=== PATIENT | female | born 1955 | race Caucasian/White ===

== ENCOUNTER 2020-01-08 09:01 | Outpatient (REF) | payer MEDICARE, MEDICAID, SELFPAY ==
--- NOTE | 2020-01-08 09:34 | XR_ITS ---
EXAMINATION: XR HAND, RIGHT CLINICAL INFORMATION: Pain 1st finger. COMPARISON: None TECHNIQUE: PA, lateral, and oblique views of the right hand. FINDINGS: There is no evidence of acute fracture or dislocation of the right hand. There are noted to be changes of osteoarthritis involving the interphalangeal joints more prominent involving the distal interphalangeal joints with joint space narrowing and spurring and subchondral cyst formation. No erosive changes are appreciated. There is degenerative change of the 1st carpometacarpal joint with joint space narrowing, spurring, and sclerosis. There is some narrowing of the triscaphe joint. Subchondral cysts are seen involving the distal radius and ulna. 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 No evidence of acute fracture or dislocation. No findings to suggest erosive arthritides.
== END 2020-01-08 09:02 | disposition home or self-care (01) ==
LOC: HO.XRAY 09:01
PROVIDERS: Absent Provider Internal Medicine; PCP Internal Medicine; Visit Provider Internal Medicine Pulmonary Disease
DX: M79.646 Pain in unspecified finger(s) (principal); J44.9 Chronic obstructive pulmonary disease, unspecified; Z91.09 Other allergy status, other than to drugs and biological substances; J45.40 Moderate persistent asthma, uncomplicated
CPT/HCPCS: 73120; 99212

== ENCOUNTER → 2020-01-19 12:23 | Outpatient (BNVA) | payer MEDICARE, MEDICAID, SELFPAY | PROVIDERS: Visit Provider Orthopaedic Surgery | DX: M65.311 Trigger thumb, right thumb (principal) | CPT/HCPCS: 99202 ==

== ENCOUNTER 2020-02-19 08:22 | Day surgery (SDC) | payer MEDICARE, MEDICAID, SELFPAY ==
[2020-02-13 14:06] VITALS: BMI 21.2
[2020-02-19 08:53] VITALS: BP 114/67; PULSE 65; RESP 18; TEMP 36.7; O2SAT 98
--- NOTE | 2020-02-19 09:28 | PC.NURSE ---
PATIENT BEING DONE WITH LOCAL. NO IV REQUIRED.
--- NOTE | 2020-02-19 09:53 | MHC.SHP ---
Pre-Procedural Eval Section B Chief Complaint: right trigger thumb Allergies: Allergies Allergy/AdvReac Type Severity Reaction Status Date / Time tetracycline Allergy Intermediate vomiting Verified 02/13/20 14:08 penicillin V Allergy Unknown Unknown Verified 01/08/20 09:03 Plan I have reviewed the history and physical and performed a pertinent physical examination on my patient. No changes have occurred unless specified.
[2020-02-19 10:24] VITALS: BP 118/77; PULSE 68; RESP 18; TEMP 36.5; O2SAT 97
--- NOTE | 2020-02-19 10:33 | W.PM.OPN ---
Operative Note Operative Note Date of Service: 02/19/20 Narrative: Operative Note Preop diagnosis: 1. Right thumb Trigger finger Postop diagnosis: 1. Right thumb Trigger finger Procedure: 1. Right thumb A1 lisa release Surgeon: Anastasiia Weeks MD Anesthesia: local block using 1% lidocaine with epinephrine Findings: No locking or catching after A1 lisa release EBL: Less than 5 mL Tourniquet time: None Specimens: None Complications: None Disposition: Brought to recovery room in stable condition Plan: Follow-up for 7-10 days for wound check and suture removal Indications: The patient is 64 years old, with a right thumb trigger finger that has been unresponsive to nonoperative management. The risks and benefits of operative treatment including but not limited to risk of damage to blood vessels, nerves, tendons, infection, persistent pain, persistent symptoms, recurrence or possible need for additional surgery were discussed with the patient and the patient wishes to proceed with surgery. Procedure: Once consent was obtained a local block was performed in the preop area using a combination of 1% lidocaine with epinephrine. The patient was then brought back to the operating suite and placed on the operative table in supine position. A tourniquet was applied to the proximal aspect of the right upper extremity and the limb was prepped and draped in a standard surgical fashion. Once assured that we had a good block, a 1.5 cm oblique incision was made centered over the A1 lisa of the right thumb . The incision was made through the skin to the subcutaneous tissues using a #15 blade. Careful dissection was made down to the level of the A1 lisa using tenotomy scissors, with care being taken to protect the nearby neurovascular structures. A longitudinal incision was made in the A1 lisa 1st using a #15 blade, then using tenotomy scissors under direct visualization. The A1 lisa was noted to be thickened. Following our A1 lisa release, we no longer saw any locking or catching of the digit with flexion and extension. Once satisfied with our A1 lisa release the wound was copiously irrigated with normal saline and hemostasis was obtained with a brief period of local pressure. The skin edges were reapproximated with some 5.0 nylon suture material and a sterile dressing was applied. The patient appears to have tolerated the procedure well and with no complications. All digits were well vascularized at the conclusion of the case.
== END 2020-02-19 23:59 | disposition home or self-care (01) ==
PROVIDERS: PCP Internal Medicine; Visit Provider Orthopaedic Surgery
PROC: (CPT 26055; principal; 2020-02-19 09:10)
DX: M65.311 Trigger thumb, right thumb (principal); G40.909 Epilepsy, unspecified, not intractable, without status epilepticus; J45.909 Unspecified asthma, uncomplicated; Z88.0 Allergy status to penicillin; F17.210 Nicotine dependence, cigarettes, uncomplicated
CPT/HCPCS: 26055

== ENCOUNTER → 2020-03-01 09:03 | Outpatient (BNVA) | payer MEDICARE, MEDICAID, SELFPAY | PROVIDERS: PCP Internal Medicine; Visit Provider Orthopaedic Surgery | DX: M65.311 Trigger thumb, right thumb (principal); M65.312 Trigger thumb, left thumb | CPT/HCPCS: 99212 ==

== ENCOUNTER → 2020-04-12 13:47 | Outpatient (BNVA) | payer MEDICARE, MEDICAID, SELFPAY | PROVIDERS: Visit Provider Orthopaedic Surgery | DX: M65.312 Trigger thumb, left thumb (principal); M65.311 Trigger thumb, right thumb | CPT/HCPCS: 99212 ==

== ENCOUNTER 2020-05-13 12:02 | Day surgery (SDC) | payer MEDICARE, MEDICAID, SELFPAY ==
[2020-05-13 12:12] VITALS: BP 123/71; PULSE 60; RESP 18; TEMP 36.6; O2SAT 98; BMI 21.2
[2020-05-13 14:06] VITALS: BP 118/66; PULSE 54; RESP 17; TEMP 36.4; O2SAT 98
--- NOTE | 2020-05-13 14:06 | MHC.SHP ---
Pre-Procedural Eval Section B Chief Complaint: trigger thumb Allergies: Allergies Allergy/AdvReac Type Severity Reaction Status Date / Time tetracycline Allergy Intermediate vomiting Verified 04/12/20 14:31 penicillin V Allergy Unknown Unknown Verified 04/12/20 14:31 Plan I have reviewed the history and physical and performed a pertinent physical examination on my patient. No changes have occurred unless specified.
--- NOTE | 2020-05-13 14:06 | W.PM.OPN ---
Operative Note Operative Note Date of Service: 05/13/20 Narrative: Operative Note Preop diagnosis: 1. Left thumb Trigger finger Postop diagnosis: 1. Left thumb Trigger finger Procedure: 1. Left thumb A1 lisa release Surgeon: Anastasiia Weeks MD Anesthesia: local block using 1% lidocaine with epinephrine Findings: No locking or catching after A1 lisa release EBL: Less than 5 mL Tourniquet time: None Specimens: None Complications: None Disposition: Brought to recovery room in stable condition Plan: Follow-up for 7-10 days for wound check and suture removal Indications: The patient is 64 years old, with a left thumb trigger finger that has been unresponsive to nonoperative management. The risks and benefits of operative treatment including but not limited to risk of damage to blood vessels, nerves, tendons, infection, persistent pain, persistent symptoms, recurrence or possible need for additional surgery were discussed with the patient and the patient wishes to proceed with surgery. Procedure: Once consent was obtained a local block was performed in the preop area using a combination of 1% lidocaine with epinephrine. The patient was then brought back to the operating suite and placed on the operative table in supine position. A tourniquet was applied to the proximal aspect of the left upper extremity and the limb was prepped and draped in a standard surgical fashion. Once assured that we had a good block, a 1.5 cm oblique incision was made centered over the A1 lisa of the left thumb . The incision was made through the skin to the subcutaneous tissues using a #15 blade. Careful dissection was made down to the level of the A1 lisa using tenotomy scissors, with care being taken to protect the nearby neurovascular structures. A longitudinal incision was made in the A1 lisa 1st using a #15 blade, then using tenotomy scissors under direct visualization. The A1 lisa was noted to be thickened. Following our A1 lisa release, we no longer saw any locking or catching of the digit with flexion and extension. Once satisfied with our A1 lisa release the wound was copiously irrigated with normal saline and hemostasis was obtained with a brief period of local pressure. The skin edges were reapproximated with some 5.0 nylon suture material and a sterile dressing was applied. The patient appears to have tolerated the procedure well and with no complications. All digits were well vascularized at the conclusion of the case.
== END 2020-05-13 14:21 | disposition home or self-care (01) ==
PROVIDERS: PCP Internal Medicine; Visit Provider Orthopaedic Surgery
PROC: (CPT 26055; principal; 2020-05-13 13:00)
DX: M65.312 Trigger thumb, left thumb (principal); J45.909 Unspecified asthma, uncomplicated; G40.909 Epilepsy, unspecified, not intractable, without status epilepticus; Z88.0 Allergy status to penicillin; Z88.8 Allergy status to other drugs, medicaments and biological substances
CPT/HCPCS: 26055

== ENCOUNTER → 2020-05-19 13:51 | Outpatient (BNVA) | payer MEDICARE, MEDICAID, SELFPAY | PROVIDERS: PCP Internal Medicine; Visit Provider Orthopaedic Surgery | DX: Z48.89 Encounter for other specified surgical aftercare (principal); Z87.39 Personal history of other diseases of the musculoskeletal system and connective tissue | CPT/HCPCS: 99212 ==

== ENCOUNTER → 2020-07-16 10:47 | Outpatient (BNVA) | payer MEDICARE, MEDICAID, SELFPAY | PROVIDERS: PCP Internal Medicine; Visit Provider Internal Medicine Pulmonary Disease | DX: J45.40 Moderate persistent asthma, uncomplicated (principal); Z91.09 Other allergy status, other than to drugs and biological substances; Z79.899 Other long term (current) drug therapy | CPT/HCPCS: 99212 ==

== ENCOUNTER 2020-08-06 10:30 | Outpatient (REF) | payer MEDICARE, MEDICAID, SELFPAY ==
[2020-08-06 11:53] LABS: Blood Urea Nitrogen 13 mg/dL (9-16); Estimated Glomerular Filt Rate > 60
== END 2020-08-06 10:31 | disposition home or self-care (01) ==
LOC: HO.LAB 10:30
PROVIDERS: PCP Internal Medicine; Visit Provider Psychiatry & Neurology Neurology
DX: G40.209 Localization-related (focal) (partial) symptomatic epilepsy and epileptic syndromes with complex partial seizures, not intractable, without status epilepticus (principal)
CPT/HCPCS: 36415; 82565; 84520

== ENCOUNTER 2020-08-13 13:25 | Outpatient (REF) | payer MEDICARE, MEDICAID, SELFPAY ==
--- NOTE | ~2020-08-13 | MR_ITS ---
EXAMINATION: MR BRAIN WITHOUT AND WITH CONTRAST CLINICAL INFORMATION: Temporal lobe epilepsy. COMPARISON: None. TECHNIQUE: Multiplanar, multisequence imaging of the brain was acquired on a 3 Deja magnet before and after the intravenous administration of 5.5 mL of Gadavist. FINDINGS: No diffusion abnormalities are identified to suggest an acute infarct. The ventricles are normal in size. No mass effect or midline shift is seen. Nonspecific very mild scattered white matter signal changes noted. No extra-axial fluid collections are seen. The brainstem and cerebellum are normal. There is no abnormal parenchymal or leptomeningeal enhancement. No focal cortical dysplasia or migrational abnormality is seen. The hippocampi are normal in appearance. The gradient refocused acquisition demonstrates no pathologic magnetic susceptibility artifact to indicate underlying acute or chronic blood products. The craniovertebral junction, marrow signal, and midline structures are normal. The orbits and pituitary axis appear normal. The major intracranial flow voids at the level of the saxman of [place] are preserved. The dural venous sinus flow voids are maintained. The mastoid air cells and paranasal sinuses are well aerated. There is moderate right-sided hypertrophic facet arthropathy with sclerotic change at the C3-C4 and C4-C5 levels. Mild anterolisthesis visible at C4-C5. There is a retrosubluxation and severe disc space narrowing with endplate spurring at the C5-C6 level. MR/MR head/brain wo/w con IMPRESSION: No hippocampal pathology or epileptogenic focus identified. Nonspecific mild white matter signal changes. No abnormal enhancement. Partially visualized moderate cervical spondylosis and facet arthropathy.
== END 2020-08-13 13:26 | disposition home or self-care (01) ==
LOC: HO.MRI 13:25
PROVIDERS: PCP Internal Medicine; Visit Provider Psychiatry & Neurology Neurology
DX: G40.209 Localization-related (focal) (partial) symptomatic epilepsy and epileptic syndromes with complex partial seizures, not intractable, without status epilepticus (principal)
CPT/HCPCS: 70553

== ENCOUNTER 2020-11-05 10:23 | Outpatient (REF) | payer MEDICARE, MEDICAID, SELFPAY ==
[2020-11-05 11:38] LABS: Thyroid Stimulating Hormone 0.43 uIU/mL (0.32-4.0)
== END 2020-11-05 10:24 | disposition home or self-care (01) ==
LOC: HO.LAB 10:23
PROVIDERS: PCP Internal Medicine; Visit Provider Internal Medicine
DX: E03.9 Hypothyroidism, unspecified (principal)
CPT/HCPCS: 36415; 84443

== ENCOUNTER → 2021-02-18 10:05 | Outpatient (BNVA) | payer MEDICARE, MEDICAID, SELFPAY | PROVIDERS: PCP Internal Medicine; Visit Provider Internal Medicine Pulmonary Disease | DX: J45.40 Moderate persistent asthma, uncomplicated (principal); Z91.09 Other allergy status, other than to drugs and biological substances | CPT/HCPCS: 99212 ==

== ENCOUNTER → 2021-06-20 09:56 | Outpatient (BNVA) | payer MEDICARE, MEDICAID, SELFPAY | PROVIDERS: PCP Internal Medicine; Visit Provider Internal Medicine Pulmonary Disease | DX: J45.40 Moderate persistent asthma, uncomplicated (principal); Z91.09 Other allergy status, other than to drugs and biological substances | CPT/HCPCS: 99212 ==

== ENCOUNTER 2021-11-30 13:31 | Outpatient (REF) | payer MEDICARE, MEDICAID, SELFPAY ==
[2021-11-30 13:42] LABS: MANUAL DIFF FLAG NO
[2021-11-30 13:53] LABS: Basophils Absolute Auto 0.1 X10*3/uL (0.0-0.2); Basophils Percent Auto 0.7 % (0-2); Eosinophils Absolute Auto 0.6 X10*3/uL (0.0-0.4); Eosinophils Percent Auto 6.6 % (0-4); Hematocrit 39.5 % (37.0-47.0); Hemoglobin 13.9 g/dl (12.0-16.0); Imm Gran Abs Auto 0.02 X10*3/uL (0.00-0.03); Imm Gran Pct Auto 0.2 % (0.0-0.4); Lymphocytes Absolute Auto 2.8 X10*3/uL (1.2-4.9); Lymphocytes Percent Auto 34.3 % (20-40); Mean Corpuscular HGB Conc 35.2 g/dl (31.0-35.0); Mean Corpuscular Hemoglobin 33.1 pg (27.0-33.0); Mean Platelet Volume 9.2 fL (9.4-12.3); Monocytes Absolute Auto 0.7 X10*3/uL (0.1-1.2); Neutrophils Absolute Auto 4.2 x10*3/uL (2.0-8.3); Neutrophils Percent Auto 50.2 % (45-73); Platelet Count 275 X10*3/uL (160-400); Red Cell Distribution Width 13.7 % (11.0-16.0); White Blood Count 8.3 X10*3/uL (4.8-10.8)
[2021-11-30 14:32] LABS: Anion Gap 15 (12-20); Blood Urea Nitrogen 15 mg/dL (9-16); Calcium 9.5 mg/dL (8.4-10.2); Carbon Dioxide 27 mmol/L (22-29); Chloride 103 mmol/L (96-108); Estimated Glomerular Filt Rate > 60; Glucose Random 88 mg/dL (60-115); Potassium 4.2 mmol/L (3.3-5.1); Sodium 141 mmol/L (135-145)
[2021-11-30 14:43] LABS: Thyroid Stimulating Hormone 0.89 uIU/mL (0.32-4.0)
== END 2021-11-30 13:32 | disposition home or self-care (01) ==
LOC: HO.LAB 13:31
PROVIDERS: PCP Internal Medicine; Visit Provider Internal Medicine
DX: Z13.0 Encounter for screening for diseases of the blood and blood-forming organs and certain disorders involving the immune mechanism (principal); E03.9 Hypothyroidism, unspecified; R51.9 Headache, unspecified
CPT/HCPCS: 36415; 80048; 84443; 85025

== ENCOUNTER → 2021-12-02 13:28 | Outpatient (BNVA) | payer MEDICARE, MEDICAID, SELFPAY | PROVIDERS: PCP Internal Medicine; Visit Provider Internal Medicine Pulmonary Disease | DX: J45.40 Moderate persistent asthma, uncomplicated (principal); Z91.09 Other allergy status, other than to drugs and biological substances | CPT/HCPCS: 99212 ==

== ENCOUNTER → 2022-06-16 09:46 | Outpatient (BNVA) | payer MEDICARE, MEDICAID, SELFPAY | PROVIDERS: PCP Internal Medicine; Visit Provider Internal Medicine Pulmonary Disease | DX: J45.40 Moderate persistent asthma, uncomplicated (principal); Z91.09 Other allergy status, other than to drugs and biological substances | CPT/HCPCS: 99212 ==

== ENCOUNTER 2023-03-09 10:05 | Outpatient (AMB) | payer MEDICARE, MEDICAID, SELFPAY ==
[2023-03-09 10:20] VITALS: BP 104/70; PULSE 66; O2SAT 96; BMI 28.1
--- NOTE | 2023-03-09 10:20 | A.OFFVIS_ITS ---
Intake Vital Signs 03/09/23 10:20 Height 5 ft Weight 144 lb BMI 28.1 BP 104/70 Blood Pressure Location Lt brachial Position Sitting Pulse 66 Pulse Source Pulse Oximeter Pulse Oximetry (%) 96 Oxygen Delivery Method Room Air Intake Visit Reasons: Asthma Intake Note: pt is here for follow up and states she is feeling good today. 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 Her symptoms continue to be controlled Symbicort 160, Singulair, and albuterol MDI.? She denies any recent exacerbations. COUNTS INCLUDE 234 BEDS AT THE [facility] Medical History (Updated 11/30/21 @ 13:32 by Black Quevedo MD) Hypothyroidism Epilepsy Asthma Graves disease Surgical History History of thumb surgery History of renal stent (~2002) History of arthroscopy of left knee History of tubal ligation Family History Father No problems noted. Mother No problems noted. 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 Review of Systems Const Denies daytime sleepiness, Denies excessive sweating, Denies fatigue, Denies fever(s), Denies lethargy, Denies malaise, Denies night sweats, Denies snoring and Denies weight loss Eyes Denies blurry vision and Denies itchy eyes ENT Denies nasal congestion, Denies post nasal drip, Denies sinus pain, Denies sinus pressure and Denies other ( Thrush) Card Denies chest pain, Denies pedal edema, Denies dyspnea, Denies orthopnea and Denies paroxysmal nocturnal dyspnea Resp Denies cough, Denies hemoptysis, Denies excessive phlegm production, Denies dyspnea, Denies snoring and Denies wheezing GI Denies abdominal pain and Denies heartburn Musc Denies myalgias, Denies arthralgias and Denies joint swelling Skin/Breast Denies rash Neuro Denies memory loss and Denies seizure-like activity Psych Denies abnormal sleep pattern, Denies anxiety and Denies memory loss Endo Denies excessive sweating, Denies fatigue and Denies heat intolerance Mandeep/Lymph Denies easy bruising Aller/Immun Denies itchy eyes, Denies seasonal rhinorrhea and Denies wheezing Physical Exam Vital Signs: Last Vital Signs Pulse 66 03/09/23 10:20 BP 104/70 03/09/23 10:20 Pulse Ox 96 03/09/23 10:20 Oxygen Delivery Method Room Air 03/09/23 10:20 BMI result Body Mass Index 28.1 Const General: no acute distress and alert Nutritional Appearance: not obese Orientation/consciousness: Other orientation findings ( oriented) HEENT Head: Yes atraumatic Eyes General: appearance normal, both eyes and all related structures Sclerae: sclerae normal EOM: EOMs intact bilaterally Neck Neck: Yes supple Lymphatic: no lymphadenopathy noted Resp Effort & Inspection: normal respiratory effort and no use of accessory muscles Auscultation: clear to auscultation bilaterally Cardio Rate: regular rate Rhythm: regular rhythm Heart sounds: no gallops, no murmurs and no rubs Skin General skin exam: other ( warm) Extrem General: No clubbing, No cyanosis and No edema Assessment & Plan Assessment & Plan (1) Moderate persistent asthma: Code(s): J45.40 - Moderate persistent asthma, uncomplicated Plan: Well controlled on Symbicort and albuterol MDI. Continue current regimen. (2) Environmental allergies: Code(s): Z91.09 - Other allergy status, other than to drugs and biological substances Plan: Well controlled on Singulair. Continue current regimen. Coding Level of Care Code Est Pt Level 4 (41114) Diagnoses Moderate persistent asthma J45.40 Environmental allergies Z91.09
== END 2023-03-09 10:29 | disposition home or self-care (01) ==
PROVIDERS: PCP Internal Medicine; Visit Provider Internal Medicine Pulmonary Disease
DX: J45.40 Moderate persistent asthma, uncomplicated (principal); Z91.09 Other allergy status, other than to drugs and biological substances
CPT/HCPCS: 99214

== ENCOUNTER → 2023-03-09 10:05 | Outpatient (BNVA) | payer MEDICARE, MEDICAID, SELFPAY | PROVIDERS: PCP Internal Medicine; Visit Provider Internal Medicine Pulmonary Disease | DX: J45.40 Moderate persistent asthma, uncomplicated (principal); Z91.09 Other allergy status, other than to drugs and biological substances | CPT/HCPCS: 99212 ==

== ENCOUNTER 2023-10-05 11:35 | Outpatient (AMB) | payer MEDICARE, MEDICAID, SELFPAY ==
[2023-10-05 11:47] VITALS: BP 108/62; PULSE 66; O2SAT 97; BMI 26.6
--- NOTE | 2023-10-05 11:47 | MHC.OFFVIS ---
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 Her symptoms continue to be controlled Symbicort 160, Singulair, and albuterol MDI.? She denies any recent exacerbations. [facility] Medical History (Updated 11/30/21 @ 13:32 by Black Quevedo MD) Hypothyroidism Epilepsy Asthma Graves disease Surgical History History of thumb surgery History of renal stent (~2002) History of arthroscopy of left knee History of tubal ligation Family History Father No problems noted. Mother No problems noted. 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 Review of Systems Const Denies daytime sleepiness, Denies excessive sweating, Denies fatigue, Denies fever(s), Denies lethargy, Denies malaise, Denies night sweats, Denies snoring and Denies weight loss Eyes Denies blurry vision and Denies itchy eyes ENT Denies nasal congestion, Denies post nasal drip, Denies sinus pain, Denies sinus pressure and Denies other ( Thrush) Card Denies chest pain, Denies pedal edema, Denies dyspnea, Denies orthopnea and Denies paroxysmal nocturnal dyspnea Resp Denies cough, Denies hemoptysis, Denies excessive phlegm production, Denies dyspnea, Denies snoring and Denies wheezing GI Denies abdominal pain and Denies heartburn Musc Denies myalgias, Denies arthralgias and Denies joint swelling Skin/Breast Denies rash Neuro Denies memory loss and Denies seizure-like activity Psych Denies abnormal sleep pattern, Denies anxiety and Denies memory loss Endo Denies excessive sweating, Denies fatigue and Denies heat intolerance Mandeep/Lymph Denies easy bruising Aller/Immun Denies itchy eyes, Denies seasonal rhinorrhea and Denies wheezing Physical Exam Vital Signs: Last Vital Signs Pulse 66 10/05/23 11:47 BP 108/62 10/05/23 11:47 Pulse Ox 97 10/05/23 11:47 Oxygen Delivery Method Room Air 10/05/23 11:47 BMI result Body Mass Index 26.6 Const General: no acute distress and alert Nutritional Appearance: not obese Orientation/consciousness: Other orientation findings ( oriented) HEENT Head: Yes atraumatic Eyes General: appearance normal, both eyes and all related structures Sclerae: sclerae normal EOM: EOMs intact bilaterally Neck Neck: Yes supple Lymphatic: no lymphadenopathy noted Resp Effort & Inspection: normal respiratory effort and no use of accessory muscles Auscultation: clear to auscultation bilaterally Cardio Rate: regular rate Rhythm: regular rhythm Heart sounds: no gallops, no murmurs and no rubs Skin General skin exam: other ( warm) Extrem General: No clubbing, No cyanosis and No edema Assessment & Plan Assessment & Plan (1) Moderate persistent asthma: Code(s): J45.40 - Moderate persistent asthma, uncomplicated Category: Medical Plan: Well controlled on Symbicort and albuterol MDI. Continue current regimen. (2) Environmental allergies: Code(s): Z91.09 - Other allergy status, other than to drugs and biological substances Category: Medical Plan: Well controlled on Singulair. Continue current regimen. Coding Level of Care Code Est Pt Level 4 (17520) Diagnoses Moderate persistent asthma J45.40 Environmental allergies Z91.09
== END 2023-10-05 12:01 | disposition home or self-care (01) ==
PROVIDERS: PCP Internal Medicine; Visit Provider Internal Medicine Pulmonary Disease
DX: J45.40 Moderate persistent asthma, uncomplicated (principal); Z91.09 Other allergy status, other than to drugs and biological substances
CPT/HCPCS: 99214

== ENCOUNTER → 2023-10-05 11:35 | Outpatient (BNVA) | payer MEDICARE, MEDICAID, SELFPAY | PROVIDERS: PCP Internal Medicine; Visit Provider Internal Medicine Pulmonary Disease | DX: J45.40 Moderate persistent asthma, uncomplicated (principal); Z91.09 Other allergy status, other than to drugs and biological substances | CPT/HCPCS: 99212 ==

== ENCOUNTER 2024-01-21 10:16 | Outpatient (AMB) | payer MEDICARE, MEDICAID, SELFPAY ==
--- NOTE | 2024-01-21 10:17 | A.OFFPC_ITS ---
Vital Signs 01/21/24 10:18 Height 5 ft Weight 143 lb BMI 27.9 BP 116/70 Blood Pressure Location Lt brachial Position Sitting Pulse 78 Pulse Source Pulse Oximeter Pulse Oximetry (%) 97 Oxygen Delivery Method Room Air Intake Visit Reasons: Thyroid medication f/u Senior Java Architect Required: No Accompanied by: Self / Same As Patient Allergies tetracycline Allergy (Intermediate, Verified 01/21/24 10:22) vomiting penicillin V Allergy (Unknown, Verified 01/21/24 10:22) Unknown Medication List - Last Reconciled 01/22/24 by Black Quevedo MD levetiracetam 3,500 mg PO DAILY montelukast 10 mg PO DAILY oxcarbazepine 300 mg PO BID Symbicort 160-4.5 mcg/actuation (budesonide-formoterol) 2 puffs PO BID NS Synthroid (levothyroxine) 125 mcg PO DAILY NS Ventolin HFA 90 mcg/actuation (albuterol sulfate) 2 puffs inhalation Q4H PRN NS Tobacco use date assessed: 01/21/24 Fall risk assessment: 1 Fall in past year Last assessed Fall Risk: 01/21/24 Dental Screening Dental Screen Date: 01/21/24 Did you have a dental visit in the last 12 months?: Yes Did you have a dental problem in the last 6 months where you did not have access to dental care?: No Was dental information given to patient?: Patient has dentist HPI Thyroid medication f/u HPI Details hypothyroidism on rx; due for labs; compliant with rx [facility] Medical History (Updated 11/30/21 @ 13:32 by Black Quevedo MD) Hypothyroidism Epilepsy Asthma Graves disease Surgical History History of thumb surgery History of renal stent (~2002) History of arthroscopy of left knee History of tubal ligation Family History Father No problems noted. Mother No problems noted. 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 1. Little interest or pleasure in doing things: not at all 2. Feeling down, depressed, or hopeless: not at all 3. Trouble falling or staying asleep, or sleeping too much: not at all 4. Feeling tired or having little energy: not at all 5. Poor appetite or overeating: not at all 6. Feeling bad about yourself - or that you are a failure or have let yourself or your family down: not at all 7. Trouble concentrating on things, such as reading the newspaper or watching television: not at all 8. Moving or speaking so slowly that other people could have noticed. Or the opposite - being so fidgety or restless that you have been moving around a lot more than usual: not at all 9. Thoughts that you would be better off or of hurting yourself in some way: not at all Total score: 0 Depression Screening Interpretation: Negative Depression Screening Done: Yes Source: Developed by Drs. Vivek West, Keeley Cantor, Nithin Amaya and colleagues, with an educational ketty from [employer]. Thrive Questionnaire Date Thrive assessed: 01/21/24 I am a: Patient What is your living situation today?: I have a steady place to live Within the past 12 months, did the food you bought not last and you didn't have the money to get more?: Never true Within the past 12 months, did you worry whether your food would run out before you got money to buy more?: Never true Do you have trouble paying for medicines?: No Do you have trouble getting transportation to medical appointments?: No Do you have trouble paying your heating and electricity bill?: No Do you have trouble taking care of your child, family member or friend?: No Do you have trouble with day-to-day activities such as bathing, preparing meals, shopping, managing finances, etc.?: No Are you currently unemployed and looking for a job?: No Are you interested in more education?: No Please select the resources that you would like help with: None Currently or been in a relationship where the following occur: No concerns reported THRIVE Score: 0 AUDIT C Alcohol Use Questionnaire (AUDIT-C) 1. How often do you have a drink containing alcohol?: Never Total Score: 0 KRYSTINA-7 AMB Questionnaire KRYSTINA-7 Date KRYSTINA - 7 assessed: 01/21/24 Feeling nervous, anxious, or on edge: 0 = Not at all Not being able to stop or control worryin = Not at all Worrying too much about different things: 0 = Not at all Trouble relaxin = Not at all Being so restless that it is hard to sit still: 0 = Not at all Becoming easily annoyed or irritable: 0 = Not at all Feeling afraid as if something awful might happen: 0 = Not at all Total KRYSTINA-7 score (0-4 normal; 5-9 mild; 10-14 moderate; 15-21 severe): 0 Source: Developed by Drs. Vivek West, Keeley Cantor, Nithin Amaya and colleagues, with an educational ketty from [employer]. Review of Systems Const Denies chills, Denies headache(s) and Denies weight loss ENT Denies headache(s) Card Denies chest pain, Denies syncope, Denies irregular heart rhythm and Denies dyspnea Resp Denies chest congestion, Denies cough and Denies dyspnea GI Denies abdominal pain, Denies change in stool character, Denies nausea and Denies vomiting Musc Denies deformity and Denies joint swelling Neuro Denies syncope and Denies headache(s) Physical exam (Primary Care) Vital Signs: Last Vital Signs Pulse 78 01/21/24 10:18 BP 116/70 01/21/24 10:18 Pulse Ox 97 01/21/24 10:18 Oxygen Delivery Method Room Air 01/21/24 10:18 BMI result Body Mass Index 27.9 Tobacco/Smoking Status: Tobacco use Status Tobacco use date assessed 01/21/24 01/21/24 10:25 Patient Tobacco Use Status Never used Tobacco 01/21/24 10:25 e-Cigarette/Vaping Use Never Used 01/21/24 10:25 PHQ-9: PHQ-9 Score PHQ-9: Total score 0 01/21/24 10:41 Depression Screening Interpretation: Negative Thrive Assessment: Date of Thrive Assessment Date Thrive assessed 01/21/24 01/21/24 10:25 Currently or been in a relationship where the following occur: No concerns reported Const General: cooperative, comfortable, no acute distress and alert Neck Neck: Yes no lymphadenopathy Thyroid: Thyroid normal Resp Effort & Inspection: normal respiratory effort Auscultation: clear to auscultation bilaterally Percussion: percussion normal Cardio Jugular venous distension: no JVD Palpation: normal PMI Rate: regular rate Rhythm: regular rhythm Heart sounds: S1 normal heart sound present and S2 normal heart sound present GI Inspection: Yes normal to inspection Palpation (GI): No hepatosplenomegaly present Skin General skin exam: no rashes or lesions noted Extrem General: Yes no clubbing, cyanosis or edema Office Procedures Flu Questionnaire Does the patient have a severe egg allergy?: No Immunizations Fluarix Triv [id number] (PF) 45 mcg (15 mcg x 3)/0.5 mL IM syringe Performing Provider: Black Quevedo MD [facility] [place] [facility] Documented (not given) by: EULALIO Dozier on 01/21/24 10:25 Reason Not Given: Patient Refused Coding Level of Care Code Est Pt Level 3 (48270) Diagnoses Hypothyroidism E03.9 Assessment & Plan Assessment & Plan (1) Hypothyroidism: Code(s): E03.9 - Hypothyroidism, unspecified Category: Medical Plan: stable; do labs; same rx Orders: Orders Complete Blood Count Auto Diff Today Z13.0 - Encounter for screening for diseases of the blood and blood-forming organs and certain disorders involving t he immune mechanism Comprehensive [place]. Panel Fast Today Z13.9 - Encounter for screening, unspecified Thyroid Stimulating Hormone Today Z13.29 - Encounter for screening for other suspected endocrine disorder Lipid Panel Today Z13.220 - Encounter for screening for lipoid disorders Influenza [id number] Immunization 01/21/24 Z23 - Encounter for immunization XR hip RT min 2V Today M25.559 - Pain in unspecified hip Medications: Refilled Symbicort 160-4.5 mcg/actuation (budesonide-formoterol) 2 puffs PO BID 10.2 grams 0RF NS J45.40 - Moderate persistent asthma, uncomplicated Synthroid (levothyroxine) 125 mcg PO DAILY 90 tabs 1RF NS
[2024-01-21 10:18] VITALS: BP 116/70; PULSE 78; O2SAT 97; BMI 27.9
== END 2024-01-21 10:35 | disposition home or self-care (01) ==
PROVIDERS: PCP Internal Medicine; Visit Provider Internal Medicine
DX: E03.9 Hypothyroidism, unspecified (principal)

== ENCOUNTER → 2024-01-21 10:16 | Outpatient (BNVA) | payer MEDICARE, MEDICAID, SELFPAY | PROVIDERS: PCP Internal Medicine; Visit Provider Internal Medicine | DX: E03.9 Hypothyroidism, unspecified (principal); J45.40 Moderate persistent asthma, uncomplicated; M25.559 Pain in unspecified hip; Z13.0 Encounter for screening for diseases of the blood and blood-forming organs and certain disorders involving the immune mechanism; Z13.29 Encounter for screening for other suspected endocrine disorder; Z51.81 Encounter for therapeutic drug level monitoring; Z28.21 Immunization not carried out because of patient refusal; Z79.899 Other long term (current) drug therapy; Z13.220 Encounter for screening for lipoid disorders | CPT/HCPCS: 90471; 99212 ==

== ENCOUNTER 2024-01-22 07:46 | Outpatient (REF) | payer MEDICARE, MEDICAID, SELFPAY ==
[2024-01-22 08:05] LABS: MANUAL DIFF FLAG NO
[2024-01-22 08:33] LABS: Basophils Absolute Auto 0.1 X10*3/uL (0.0-0.2); Basophils Percent Auto 0.8 % (0-2); Eosinophils Absolute Auto 0.3 X10*3/uL (0.0-0.4); Eosinophils Percent Auto 5.2 % (0-4); Hematocrit 38.1 % (37.0-47.0); Hemoglobin 12.7 g/dl (12.0-16.0); Imm Gran Abs Auto 0.01 X10*3/uL (0.00-0.03); Imm Gran Pct Auto 0.2 % (0.0-0.4); Lymphocytes Absolute Auto 2.1 X10*3/uL (1.2-4.9); Lymphocytes Percent Auto 34.2 % (20-40); Mean Corpuscular HGB Conc 33.3 g/dl (31.0-35.0); Mean Corpuscular Hemoglobin 30.8 pg (27.0-33.0); Mean Corpuscular Volume 92.5 fL (80.0-98.0); Mean Platelet Volume 9.4 fL (9.4-12.3); Monocytes Absolute Auto 0.6 X10*3/uL (0.1-1.2); Monocytes Percent Auto 9.2 % (2-11); Neutrophils Absolute Auto 3.1 x10*3/uL (2.0-8.3); Neutrophils Percent Auto 50.4 % (45-73); Platelet Count 255 X10*3/uL (160-400); Red Blood Count 4.12 X10*6/uL (4.20-5.50); Red Cell Distribution Width 13.5 % (11.0-16.0); White Blood Count 6.2 X10*3/uL (4.8-10.8)
[2024-01-22 09:14] LABS: Alanine Aminotransferase 11 U/L (0-31); Albumin Level 3.9 g/dL (3.5-5.0); Alkaline Phosphatase 83 U/L (39-117); Anion Gap 10 (12-20); Aspartate Amino Transferase 16 U/L (5-31); Bilirubin Total 0.3 mg/dL (0.0-1.0); Blood Urea Nitrogen 12 mg/dL (9-16); Calcium 8.6 mg/dL (8.4-10.2); Carbon Dioxide 30 mmol/L (22-29); Chloride 105 mmol/L (96-108); Cholesterol 280 mg/dL (<200); Estimated Glomerular Filt Rate > 60; Glucose Fasting 86 mg/dL (60-99); HDL Cholesterol 84 mg/dL (>40); LDL Cholesterol Calculated 183 mg/dL (<100); Potassium 3.8 mmol/L (3.3-5.1); Sodium 141 mmol/L (135-145); Total Protein 6.5 g/dL (6.5-8.0); Triglycerides 69 mg/dL (<150)
[2024-01-22 09:21] LABS: Thyroid Stimulating Hormone 19.92 uIU/mL (0.32-4.0)
== END 2024-01-22 07:47 | disposition home or self-care (01) ==
LOC: HO.XRAY 07:46
PROVIDERS: PCP Internal Medicine; Visit Provider Internal Medicine
DX: Z13.9 Encounter for screening, unspecified (principal); Z13.29 Encounter for screening for other suspected endocrine disorder; Z13.220 Encounter for screening for lipoid disorders; Z13.0 Encounter for screening for diseases of the blood and blood-forming organs and certain disorders involving the immune mechanism; M25.559 Pain in unspecified hip
CPT/HCPCS: 36415; 73502; 80053; 80061; 84443; 85025

== ENCOUNTER 2024-02-26 21:57 | Observation (INO) | payer MEDICARE, MEDICAID, SELFPAY ==
--- NOTE | 2024-02-26 | ECG_ITS ---
Test Reason : CP Blood Pressure : */* mmHG Vent. Rate : 89 BPM Atrial Rate : 89 BPM P-R Int : 190 ms QRS Dur : 84 ms QT Int : 366 ms P-R-T Axes : 29 34 54 degrees QTcB Int : 445 ms Normal sinus rhythm Normal ECG No previous ECGs available Referred By: Moshe Curiel Electronically Signed By: ANA GENTILE MD
--- NOTE | ~2024-02-26 | CT_ITS ---
CLINICAL HISTORY: Mid abdominal pain with vomiting etiology??? CT abdomen and pelvis without contrast Comparison: None Findings: Large hiatal hernia is present. Gallstones in the neck of the gallbladder. Gallbladder is mildly distended up to 4.4 cm diameter. No focal hepatic lesion identified. Pancreas and spleen are within normal limits. The adrenal glands are unremarkable. Kidneys are non hydronephrotic. Nonobstructing small left renal calculi are present. Scattered sigmoid diverticula are present with minimal adjacent fat stranding or inflammatory change. The appendix is not visualized. No acute fracture. IMPRESSION: 1. Large gallstone in the neck of the gallbladder with distended gallbladder. Right upper quadrant ultrasound may be helpful for further evaluation if clinically indicated. 2. Diverticulosis with very minimal adjacent fat stranding or inflammatory change, possibly early or mild diverticulitis. 3. Large hiatal hernia. This document has been electronically signed by: Theo Dixon MD, PHD on 02/27/2024 03:14:34
--- NOTE | ~2024-02-26 | US_ITS ---
CLINICAL HISTORY: RUQ pain tender, stone on CT US abdomen limited Comparison: CT/SR - CT ABDOMEN PELVIS WO IV CON - 02/27/24 02:31 EST Findings: The gallbladder is normal in size. 1.2 cm gallstone is seen at the gallbladder neck. There is no gallbladder wall thickening or pericholecystic fluid. Sonographic Benedict's sign is reported as positive by the door paneler. The common bile duct is within the upper limits of normal in diameter at 6 mm. IMPRESSION: Cholelithiasis with positive sonographic Benedict's sign. There is no gallbladder wall thickening or pericholecystic fluid. HIDA scan can be obtained for further evaluation. This document has been electronically signed by: Lynne Montgomery on 02/27/2024 05:35:37
[2024-02-26 22:18] VITALS: BP 139/62; PULSE 75; O2SAT 97
[2024-02-26 22:27] VITALS: BP 160/88; PULSE 78; RESP 15; TEMP 36.7; O2SAT 97
[2024-02-26 22:30] VITALS: BMI 27.1
--- NOTE | 2024-02-26 22:39 | ED_ITS ---
HPI - Abdominal Pain General Chief Complaint: Abdominal Pain Stated Complaint: n/v shest abd pain. 4hr seizures Time Seen by Provider: 02/26/24 22:28 Source: patient Mode of arrival: EMS Limitations: no limitations History of Present Illness ED Provider: HPI narrative: Patient's history of asthma epilepsy Graves disease started vomiting since 18:00 vomited about 4 times unable to take her Keppra and oxcarbazepine since then having seizures had at least 13 seizures lasted only for less than a minute minutes no injury slight right lateral tongue bite complaining of epigastric abdominal pain no history of similar episodes of vomiting in the past Related Data Home Medications ?Medication ?Instructions ?Recorded ?Confirmed levetiracetam 500 mg tablet 3,500 mg PO DAILY 10/13/20 01/22/24 oxcarbazepine 300 mg tablet 300 mg PO BID 10/13/20 01/22/24 Previous Rx's ?Medication ?Instructions ?Recorded Ventolin HFA 90 mcg/actuation 2 puff inhalation Q4H PRN 12/20/22 aerosol inhaler (albuterol sulfate) shortness of breath or wheezing #18 grams montelukast 10 mg tablet 10 mg PO DAILY #30 tabs 08/03/23 Symbicort 160 mcg-4.5 2 puff PO BID #10.2 grams 01/21/24 mcg/actuation HFA aerosol inhaler (budesonide-formoterol) Synthroid 125 mcg tablet 125 mcg PO DAILY #90 tabs 01/21/24 (levothyroxine) levothyroxine 137 mcg tablet 137 mcg PO DAILY #30 tabs 01/25/24 atorvastatin 40 mg tablet 40 mg PO DAILY #90 tabs 01/29/24 ondansetron 4 mg disintegrating 4 mg PO Q6-8H PRN nausea and 02/27/24 tablet vomiting #10 tabs pantoprazole 40 mg tablet,delayed 40 mg PO DAILY #30 tabs 02/27/24 release (Protonix) Allergies Allergy/AdvReac Type Severity Reaction Status Date / Time tetracycline Allergy Intermediate vomiting Verified 02/26/24 22:31 penicillin V Allergy Unknown Unknown Verified 02/26/24 22:31 Review of Systems Review of Systems Yes all other systems are reviewed and are negative PMFSH Past Medical History Medical History Hypothyroidism Epilepsy Asthma Graves disease Surgical History History of thumb surgery History of renal stent (~2002) History of arthroscopy of left knee History of tubal ligation Family History Family History Father No problems noted. Mother No problems noted. Social History Social History Housing: House Alcohol intake: current Alcohol intake frequency: holidays/special occasions only Patient Tobacco Use Status: Never used Tobacco e-Cigarette/Vaping Use: Never Used Second Hand Smoke Exposure: No Advance Directives: No Advance Directives Information Provided: Yes service: No Current occupational status: disabled Current occupation: [employer] at [employer]- Right Handed Cognitive needs: No Hearing needs: No Vision needs: No Physical Exam ED Vital Signs: Vital Signs - 24 hr 02/26/24 22:27 02/27/24 00:00 Temperature 98.1 F 98.0 F Pulse Rate 78 71 Respiratory Rate 15 14 Blood Pressure 160/88 H 144/67 H Pulse Oximetry 97 100 Oxygen Delivery Method Room Air Room Air BMI result Body Mass Index 27.1 Appearance: Alert. Oriented X3. No acute distress. Eyes: No pallor or icterus ENT: Pharynx normal. Oral Mucosa moist atraumatic normocephalic slight tongue bite on the right lateral aspect Neck: Normal inspection. Neck supple. CVS: Normal heart rate and rhythm. Pulses normal. Respiratory: No respiratory distress. Equal air entry bilateral, no wheezing/rales/rhonchi Abdomen: Soft and tenderness in epigastric area Bowel sounds are present, no mass palpable, no CVA tenderness Skin: Skin warm and dry. Normal skin color. Normal skin turgor. Extremities: No lower extremity edema. No calf tenderness Neuro: Oriented X 3. No motor deficit. No sensory deficit.No cerebellar signs , cranial nerves II-XII intact Medical Decision Making Medical Decision Making MDM Narrative: Patient has acute vomiting complaining of epigastric pain and had seizures multiple times likely from the vomiting patient is still having the pain in epigastric area will get a CT scan Dr. Acosta to follow the CT scan and disposition Differential Diagnosis Differential Diagnoses: The differential diagnosis associated with the presentation includes Acute gastritis/pancreatitis/cholelithiasis/viral syndrome Admission/Observation Consideration of admission/observation: Escalation of care including admission/observation considered Lab Data MDM Lab Attestation statement: I reviewed the patient's lab results. 02/26/24 22:46 02/26/24 22:46 Labs: Lab Results 02/26/24 02/26/24 Range/Units 22:45 22:46 WBC 12.6 H (4.8-10.8) X10*3/uL RBC 4.04 L (4.20-5.50) X10*6/uL Hgb 12.5 (12.0-16.0) g/dl Hct 36.4 L (37.0-47.0) % MCV 90.1 (80.0-98.0) fL MCH 30.9 (27.0-33.0) pg MCHC 34.3 (31.0-35.0) g/dl RDW 12.7 (11.0-16.0) % Plt Count 240 (160-400) X10*3/uL MPV 9.5 (9.4-12.3) fL Immature Gran % (Auto) 0.3 (0.0-0.4) % Neut % (Auto) 86.5 H (45-73) % Lymph % (Auto) 9.1 L (20-40) % [place] % (Auto) 3.6 (2-11) % Eos % (Auto) 0.3 (0-4) % Baso % (Auto) 0.2 (0-2) % Lymph # (Auto) 1.2 (1.2-4.9) X10*3/uL [place] # (Auto) 0.5 (0.1-1.2) X10*3/uL Eos # (Auto) 0.0 (0.0-0.4) X10*3/uL Baso # (Auto) 0.0 (0.0-0.2) X10*3/uL Abs Immat Gran (auto) 0.04 H (0.00-0.03) X10*3/uL Absolute Neuts (auto) 10.9 H (2.0-8.3) x10*3/uL Absolute Nucleated RBC 0.000 (0.0-0.012) X10*3/uL Nucleated RBC % (auto) 0.0 (0.0-0.2) /100WBC Sodium 136 (135-145) mmol/L Potassium 4.2 (3.3-5.1) mmol/L Chloride 102 (96-108) mmol/L Carbon Dioxide 27 (22-29) mmol/L Anion Gap 11 L (12-20) BUN 17 H (9-16) mg/dL Creatinine 0.64 (0.5-1.4) mg/dL Estim Creat Clear Calc 79.6 Estimated GFR > 60 Random Glucose 147 H (60-115) mg/dL Calcium 8.6 (8.4-10.2) mg/dL Total Bilirubin 0.2 (0.0-1.0) mg/dL AST 20 (5-31) U/L ALT 9 (0-31) U/L Alkaline Phosphatase 83 (39-117) U/L Troponin I High Sens < 2.7 (<3.5-17.0) ng/L Total Protein 7.0 (6.5-8.0) g/dL Albumin 4.0 (3.5-5.0) g/dL Lipase 26 (8-78) U/L Medications Administered Discontinued Medications Generic Name Dose Route Start Last Admin Trade Name Juanq PRN Reason Stop Dose Admin Sodium Chloride 1,000 mls @ 999 mls/hr 02/26/24 22:53 02/26/24 23:51 Ns IV 02/26/24 23:53 999 mls/hr .Q1H1M ONE Administration Levetiracetam 1,000 mg in 100 mls @ 400 mls/hr 02/26/24 22:53 02/27/24 00:05 Keppra IV 02/26/24 23:07 Infused ONCE ONE Infusion Morphine Sulfate 4 mg 02/27/24 00:21 02/27/24 00:42 Morphine Sulfate 4 Mg/Ml Cartridge IVPUSH 02/27/24 00:22 4 mg ONCE ONE Administration Protocol Ondansetron HCl 4 mg 02/26/24 22:53 02/26/24 23:46 Ondansetron Hcl 4 Mg/2 Ml Vial IVPUSH 02/26/24 22:54 4 mg ONCE ONE Administration Discharge Plan Discharge Clinical Impression: Acute nausea with nonbilious vomiting, Abdominal pain Patient Disposition: Still a Patient Instructions: Acute Nausea and Vomiting (ED), Abdominal Pain (ED) Additional Instructions: Drink plenty of fluids Medicine for nausea as advised Start taking medication for gastritis and follow up with your PCP Take your seizure medication as prescribed Prescriptions: New pantoprazole [Protonix] 40 mg tablet,delayed release (DR/EC) 40 mg PO DAILY Qty: 30 0RF ondansetron 4 mg tablet,disintegrating 4 mg PO Q6-8H PRN (Reason: nausea and vomiting) Qty: 10 0RF No Action albuterol sulfate [Ventolin HFA] 90 mcg/actuation HFA aerosol inhaler 2 puff inhalation Q4H PRN (Reason: shortness of breath or wheezing) Qty: 18 6RF montelukast 10 mg tablet 10 mg PO DAILY Qty: 30 6RF levothyroxine 137 mcg tablet 137 mcg PO DAILY Qty: 30 3RF atorvastatin 40 mg tablet 40 mg PO DAILY Qty: 90 0RF levetiracetam 500 mg tablet 3,500 mg PO DAILY oxcarbazepine 300 mg tablet 300 mg PO BID budesonide-formoterol [Symbicort] 160-4.5 mcg/actuation HFA aerosol inhaler 2 puff PO BID Qty: 10.2 0RF levothyroxine [Synthroid] 125 mcg tablet 125 mcg PO DAILY Qty: 90 1RF Print Language: Wallisian
[2024-02-26 22:55] LABS: MANUAL DIFF FLAG NO
--- NOTE | 2024-02-26 22:56 | MHC.EDTECH ---
per dr. combs on ekg
[2024-02-26 22:57] LABS: Basophils Percent Auto 0.2 % (0-2); Eosinophils Percent Auto 0.3 % (0-4); Hematocrit 36.4 % (37.0-47.0); Hemoglobin 12.5 g/dl (12.0-16.0); Imm Gran Abs Auto 0.04 X10*3/uL (0.00-0.03); Imm Gran Pct Auto 0.3 % (0.0-0.4); Lymphocytes Absolute Auto 1.2 X10*3/uL (1.2-4.9); Lymphocytes Percent Auto 9.1 % (20-40); Mean Corpuscular HGB Conc 34.3 g/dl (31.0-35.0); Mean Corpuscular Hemoglobin 30.9 pg (27.0-33.0); Mean Corpuscular Volume 90.1 fL (80.0-98.0); Mean Platelet Volume 9.5 fL (9.4-12.3); Monocytes Absolute Auto 0.5 X10*3/uL (0.1-1.2); Monocytes Percent Auto 3.6 % (2-11); Neutrophils Absolute Auto 10.9 x10*3/uL (2.0-8.3); Neutrophils Percent Auto 86.5 % (45-73); Platelet Count 240 X10*3/uL (160-400); Red Blood Count 4.04 X10*6/uL (4.20-5.50); Red Cell Distribution Width 12.7 % (11.0-16.0); White Blood Count 12.6 X10*3/uL (4.8-10.8)
[2024-02-26 23:20] LABS: Alanine Aminotransferase 9 U/L (0-31); Alkaline Phosphatase 83 U/L (39-117); Anion Gap 11 (12-20); Aspartate Amino Transferase 20 U/L (5-31); Bilirubin Total 0.2 mg/dL (0.0-1.0); Blood Urea Nitrogen 17 mg/dL (9-16); Calcium 8.6 mg/dL (8.4-10.2); Carbon Dioxide 27 mmol/L (22-29); Chloride 102 mmol/L (96-108); Creatinine Clr Calc Pharmacy 79.6; Estimated Glomerular Filt Rate > 60; Glucose Random 147 mg/dL (60-115); Lipase 26 U/L (8-78); Potassium 4.2 mmol/L (3.3-5.1); Sodium 136 mmol/L (135-145)
[2024-02-26 23:26] LABS: Troponin-I High Sensitivity < 2.7 ng/L (<3.5-17.0)
[2024-02-26] MEDS: ondansetron HCL 4 MG/2 ML VIAL IVPUSH (23:46)
[2024-02-26] MEDS: levETIRAcetam in NaCl (iso-os) 1,000 MG/100 ML PIGGYBACK 400 MG IV (23:47)
[2024-02-26] MEDS: 0.9 % Sodium Chloride 1,000 ML 999 ML IV (23:51)
[2024-02-27] VITALS (20 sets, daily range): BP systolic 100–157; BP diastolic 52–92; PULSE 70–97; RESP 11–18; TEMP 36–37.7; O2SAT 92–100
--- NOTE | 2024-02-27 00:21 | MHC.EDTECH ---
This tech took over care of pt at 2300,rounded and introduced self to pt,vitals taken,patient urinated a moderate amount on bedpan,shey-care given,repositioned to comfort,daughter at bedside,call perera in reach
--- NOTE | 2024-02-27 00:35 | MHC.EDTECH ---
EKG completed per order,signed by provider
[2024-02-27] MEDS: Morphine Sulfate 4 MG/ML CARTRIDGE IVPUSH ×3 (00:42→23:42)
--- NOTE | 2024-02-27 01:12 | PC.NURSE ---
Pt's daughter Brianna can be reached at [phone]
[2024-02-27] MEDS: Famotidine/PF 20 MG/2 ML VIAL IVPUSH (02:07)
[2024-02-27] MEDS: 0.9 % Sodium Chloride 1,000 ML 999 ML IV (02:57)
--- NOTE | 2024-02-27 02:58 | PC.NURSE ---
RN to bedside, pt reports worsening pain to the epigastric region with nausea returning. She states her pain is now 9/10 stating you guys have to do something, something is wrong it hurts too bad . The pt remains awake and alert, no seizure like activity noted, pt with IV line infusing without complications noted. RN to speak with MD Cruz regarding patient's worsening pain and returning nausea for new orders. pt's monitor was placed into privacy mode for comfort as she reported that the beeping and alarms make her pain worse.
--- NOTE | 2024-02-27 03:24 | PC.NURSE ---
RN to bedside to respond to patient's yelling out. Pt found to be in the stretcher, reporting that the IV pump is beeping. Reporting that her pain continues to get worst and she is begging for pain medication. RN discussed the pt with MD Cruz and is awaiting new orders at this time
[2024-02-27 03:49] LABS: C Reactive Protein 0.38 mg/dL (< or = 0.50)
[2024-02-27] MEDS: HYDROmorphone HCl 0.5 MG/0.5 ML SYRINGE IVPUSH ×3 (03:52→11:13)
[2024-02-27 04:19] LABS: Appearance Urine Clear; Color Urine Yellow; Glucose Urine UA Negative (Negative); Leukocyte Esterase Urine Trace (Negative); Nitrite Urine Negative (Negative); UMIC TRIGGER UACC YES; Urine Blood Negative (Negative); Urine Ketones 15 mg/dL (Negative); Urine Protein Negative (Neg-Trace)
[2024-02-27 04:21] LABS: Bacteria Urine None Seen (None Seen); Hyaline Casts Urine 0-2 /LPF (0-2); RBC Urine 0-2 /HPF (0-2); Squamous Epithelial Cell Urine 0-2 /HPF (0-2); WBC Urine 0-5 /HPF (0-5)
--- NOTE | 2024-02-27 06:13 | MHC.EDTECH ---
Patient urinated a moderate amount on bedpan,shey-care given ,call perera in reach
[2024-02-27] MEDS: ondansetron HCL 4 MG/2 ML VIAL IVPUSH (07:18)
[2024-02-27] MEDS: cefTRIAXone sodium 2 GM VIAL IVPUSH (08:11)
[2024-02-27] MEDS: metroNIDAZOLE/NS 500 MG/100 ML PIGGYBACK 100 MG IV (08:11)
--- NOTE | 2024-02-27 08:14 | PM.HPGS ---
History of Present Illness History of Present Illness Date of Service: 02/27/24 Chief complaint: n/v shest abd pain. 4hr seizures Narrative: Seda Kendall is a 68 year old female who who presents with acute onset of severe epigastric//right upper quadrant pain radiating around to her back. Because of progression of symptoms she presents to the emergency department. Workup including radiographic studies were consistent with acute cholecystitis. Patient was never had such symptoms before. She has never been jaundiced before. She denies any unusual diet. No recent foreign travel. No new meds. No sick contacts. Past medical issues most noteworthy for seizures and asthma. Patient has had prior tubal ligation. She has also had knee arthroscopy. Renal stone surgery/stent. Hand surgery Chart was reviewed and patient evaluated. Patient was a modest leukocytosis. Liver function tests within normal limits. [facility] Past Medical History Medical History Hypothyroidism Epilepsy Asthma Graves disease Family History Family History Father No problems noted. Mother No problems noted. Surgical History Surgical History History of thumb surgery History of renal stent (~2002) History of arthroscopy of left knee History of tubal ligation Social History Social History Housing: House Alcohol intake: current Alcohol intake frequency: holidays/special occasions only Patient Tobacco Use Status: Never used Tobacco Smoked in Last 30 Days: No e-Cigarette/Vaping Use: Never Used Second Hand Smoke Exposure: No Use of substances other than those prescribed or required for medical reasons: No Advance Directives: No Advance Directives Information Provided: Yes service: No Current occupational status: disabled 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 Cognitive needs: No Hearing needs: No Vision needs: No Meds Allergies Allergy/AdvReac Type Severity Reaction Status Date / Time tetracycline Allergy Intermediate vomiting Verified 02/26/24 22:31 penicillin V Allergy Unknown Unknown Verified 02/26/24 22:31 Active Medications: Current Medications Metronidazole (Flagyl) 500 mg in 100 mls @ 100 mls/hr IV ONCE ONE Stop: 02/27/24 08:38 Last Admin: 02/27/24 08:11 Dose: 100 mls/hr Home Medications ?Medication ?Instructions ?Recorded ?Confirmed ?Last Taken ?Type levetiracetam 500 mg tablet 3,500 mg PO DAILY 10/13/20 01/22/24 Unknown History oxcarbazepine 300 mg tablet 300 mg PO BID 10/13/20 01/22/24 Unknown History Physical Exam Vital Signs: Vital Signs: Last Vital Signs Temp 97.9 F 02/27/24 04:00 Pulse 96 02/27/24 08:00 Resp 18 02/27/24 08:00 BP 135/64 02/27/24 08:00 Pulse Ox 97 02/27/24 08:00 O2 Del Method Room Air 02/27/24 08:00 BMI result Body Mass Index 27.1 Const: Other: In moderate distress secondary to abdominal pain. Patient is currently receiving IV analgesics. Eyes: Other: Anicteric Chest: Other: Chest sounds bilaterally, HS 1 in 2 GI: Other: Corpulent abdomen. Marked right upper quadrant tenderness and a positive Benedict's sign. Remainder of abdominal exam benign. Results Results Labs: Short CBC 02/26/24 Range/Units 22:46 WBC 12.6 H (4.8-10.8) X10*3/uL Hgb 12.5 (12.0-16.0) g/dl Hct 36.4 L (37.0-47.0) % Plt Count 240 (160-400) X10*3/uL BMP 02/26/24 22:46 Sodium 136 Potassium 4.2 Chloride 102 Carbon Dioxide 27 BUN 17 H Creatinine 0.64 Calcium 8.6 Liver Function 02/26/24 Range/Units 22:46 Total Bilirubin 0.2 (0.0-1.0) mg/dL AST 20 (5-31) U/L ALT 9 (0-31) U/L Alkaline Phosphatase 83 (39-117) U/L Albumin 4.0 (3.5-5.0) g/dL Urine 02/27/24 Range/Units 04:12 Urine Color Yellow Urine Appearance Clear Urine pH 6.0 (5.0-9.0) Ur Specific [place] 1.020 (1.005-1.025) Urine Protein Negative (Neg-Trace) mg/dL Urine Glucose (UA) Negative (Negative) mg/dL Assessment and Plan (1) Impacted gallstone of gallbladder: Status: Acute (2) Acute cholecystitis due to biliary calculus: Status: Acute Plan Risks, benefits, alternatives of laparoscopic possible open cholecystectomy reviewed with the patient and included but not limited to bleeding, infection, recurrence of symptoms, numbness, pain, scarring, bowel or bile duct injury or leak and the patient wishes to proceed. All questions answered. Consent signed. Arrangements were made for this as an add on case for today. Quality Stroke Does the patient have a stroke diagnosis?: No VTE Prior VTE?: No VTE Risk Level:: Surgical - low VTE Device Contraindication: N/A - Device Ordered VTE Drug Contraindication: Treatment Not Indicated Procedures Date of Service Date of Service: 02/27/24
--- NOTE | 2024-02-27 10:41 | PC.NURSE ---
oob ambulating to bathroom with assist. Reports pain is well managed with dilaudid.
--- NOTE | 2024-02-27 11:00 | MHC.EDTECH ---
patient was incortable in bed nurse helped me situate the patient in bed we boosted patient gave him some warm blanket.
[2024-02-27] MEDS: Lactated Ringers 1,000 ML 100 ML IVCONT ×3 (11:13→19:11)
--- NOTE | 2024-02-27 12:44 | PC.NURSE ---
Report given to SSS
--- NOTE | 2024-02-27 14:45 | W.PM.OPN ---
Operative Note Operative Note Date of Service: 02/27/24 Narrative: Preoperative diagnosis: [] Acute cholecystitis Postop diagnosis: [] Acute phlegmonous cholecystitis Procedure [] laparoscopic cholecystectomy Surgeon: [] Jerrell Radiation Therapy Technician: [] aKren Type of Anesthesia: [] General Indication for surgery: [] Gallbladder markedly turgid, demonstrating gangrenous changes in the wall. Very edematous. with omental adhesions to it. Moderately intrahepatic gallbladder. Findings: [] Patient brought to the operating room, placed on operative table supine position, after an adequate level of general anesthesia was induced, the patient's abdomen was prepped and draped in usual sterile fashion. Using a supraumbilical curvilinear incision, Wang technique was used to insufflate abdominal cavity to 15 mm of CO2. Upper midline and right subcostal ports were placed under direct laparoscopic view, and the patient placed in reverse Trendelenburg position, and tilted to the left. Findings were as noted above. Gallbladder was initially decompressed with an aspirating device to to its marked tense swelling. Gallbladder was grasped using laparoscopic graspers and retracted superiorly and laterally. Dense omental adhesions were swept off the gallbladder and the hilum was approached. Cystic artery and cystic duct were each identified, circumferentially skeletonized, traced directly into the gallbladder, and critical view obtained. Each was clipped proximally x2, distally x1, and transected. The gallbladder which was moderately intrahepatic was then cauterized from the gallbladder fossa using Bovie. Specimen was placed in an Endo-Catch bag, and retrieved through the umbilical port. Abdominal cavity was copiously irrigated and secured hemostasis. All ports removed under direct laparoscopic view. Wounds were closed in the following manner; umbilical wound is fascia reapproximated using interrupted 0 Vicryl sutures. Skin wounds were closed using subcuticular 4-0 Vicryl sutures followed by Steri-Strips and sterile dressings. Wounds were infiltrated 0.5% Marcaine at completion. Sponge, needle, and instrument counts reported correct. Patient tolerated the procedure well and emerged from anesthesia stable condition. EBL minimal
--- NOTE | 2024-02-27 14:59 | P.CONAN_ITS ---
HPI - Anesthesia Eval Consult details Narrative: 68 yo F presenting for lap jarrell PMFSH Active Problems Active Problems: All Active Problems Acute cholecystitis due to biliary calculus (Acute) Abdominal pain with vomiting (Acute) Impacted gallstone of gallbladder (Acute) Adult general medical exam (Acute) Hypothyroidism (Acute) Trigger finger of left thumb (Acute) Trigger finger of right thumb (Acute) Environmental allergies (Acute) Moderate persistent asthma (Acute) Thumb pain (Acute) Past Medical History Medical History Hypothyroidism Epilepsy Asthma Graves disease Family History Family History Father No problems noted. Mother No problems noted. Family history of problems with anesthesia: No Surgical History Surgical History History of thumb surgery History of renal stent (~2002) History of arthroscopy of left knee History of tubal ligation History of Problems with Anesthesia: No Social History Social History Housing: House Alcohol intake: current Alcohol intake frequency: holidays/special occasions only Patient Tobacco Use Status: Never used Tobacco Smoked in Last 30 Days: No e-Cigarette/Vaping Use: Never Used Second Hand Smoke Exposure: No Use of substances other than those prescribed or required for medical reasons: Yes Substance Use Type Other:: last smoked 2 days ago Substance Use Frequency: Occasionally Are you DNR?: No Advance Directives: No Advance Directives Information Provided: Yes service: No Current occupational status: disabled 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 Cognitive needs: No Hearing needs: No Vision needs: No Meds Allergies Allergy/AdvReac Type Severity Reaction Status Date / Time tetracycline Allergy Intermediate vomiting Verified 02/26/24 22:31 penicillin V Allergy Unknown Unknown Verified 02/26/24 22:31 Active Medications: Current Medications Acetaminophen (Acetaminophen 325 Mg Tablet) 650 mg PO Q6H PRN PRN Reason: Pain, Mild 1-3,fever,headache Atorvastatin Calcium (Atorvastatin Calcium 40 Mg Tablet) 40 mg PO DAILY [facility] Calcium Carbonate (Calcium Carbonate 750 Mg Tab.Chew) 750 mg PO Q4H PRN PRN Reason: Heartburn Lactated Ringer's (Lr) 1,000 mls @ 100 mls/hr IVCONT .Q10H [facility] Last Admin: 02/27/24 11:13 Dose: 100 mls/hr Levetiracetam (Levetiracetam 1,000 Mg Tablet) 1,000 mg PO DAILY [facility] Levetiracetam (Levetiracetam 500 Mg Tablet) 2,500 mg PO BEDTIME [facility] Magnesium Hydroxide (Milk Of Magnesia 30 Ml Oral.Susp) 30 ml PO DAILY PRN PRN Reason: Constipation Melatonin (Melatonin 3 Mg Tablet) 6 mg PO BEDTIME PRN PRN Reason: Insomnia Montelukast Sodium (Montelukast Sodium 10 Mg Tablet) 10 mg PO DAILY [facility] Morphine Sulfate (Morphine Sulfate 4 Mg/Ml Cartridge) 4 mg IVPUSH Q4H PRN; Protocol PRN Reason: Pain, Severe (Pain Scale 7-10) Non-Formulary Medication (Budesonide-Formoterol [Symbicort]) 2 puff PO BID [facility] Non-Formulary Medication (Levothyroxine) 137 mcg PO DAILY [facility] Ondansetron HCl (Ondansetron Hcl 4 Mg/2 Ml Vial) 4 mg IVPUSH Q8H PRN PRN Reason: Nausea and Vomiting Oxcarbazepine (Oxcarbazepine 300 Mg Tablet) 300 mg PO BID [facility] Oxycodone HCl (Oxycodone Hcl Immed Release 5 Mg Tablet) 5 mg PO Q4H PRN PRN Reason: Pain, Moderate(Pain Scale 4-6) Sodium Chloride (0.9 % Sodium Chloride Flush 3 Ml Syringe) 3 ml IVFLUSH QSHIFT [facility] Home Medications ?Medication ?Instructions ?Recorded ?Confirmed ?Last Taken ?Type levetiracetam 500 mg tablet 2,500 mg PO BEDTIME 10/13/20 02/27/24 02/26/24 History oxcarbazepine 300 mg tablet 300 mg PO BID 10/13/20 02/27/24 02/26/24 History levetiracetam 1,000 mg tablet 1,000 mg PO DAILY 02/27/24 02/27/24 02/26/24 History Exam Exam Date and Time: 02/27/24 1400 Height,Weight and Vital Signs: Height 5 ft 3 in Weight 69.4 kg Last Vital Signs Temp 99.1 F 02/27/24 14:43 Pulse 86 02/27/24 14:43 Resp 18 02/27/24 14:43 BP 157/65 H 02/27/24 14:43 Pulse Ox 98 02/27/24 14:43 O2 Del Method Room Air 02/27/24 13:48 Pertinent Lab Results Pertinent Lab Results: Laboratory Tests 02/26/24 02/26/24 02/27/24 22:45 22:46 04:12 WBC 12.6 H RBC 4.04 L Hgb 12.5 Hct 36.4 L MCV 90.1 MCH 30.9 MCHC 34.3 RDW 12.7 Plt Count 240 MPV 9.5 Immature Gran % (Auto) 0.3 Neut % (Auto) 86.5 H Lymph % (Auto) 9.1 L [place] % (Auto) 3.6 Eos % (Auto) 0.3 Baso % (Auto) 0.2 Lymph # (Auto) 1.2 [place] # (Auto) 0.5 Eos # (Auto) 0.0 Baso # (Auto) 0.0 Abs Immat Gran (auto) 0.04 H Absolute Neuts (auto) 10.9 H Absolute Nucleated RBC 0.000 Nucleated RBC % (auto) 0.0 Sodium 136 Potassium 4.2 Chloride 102 Carbon Dioxide 27 Anion Gap 11 L BUN 17 H Creatinine 0.64 Estim Creat Clear Calc 79.6 Estimated GFR > 60 Random Glucose 147 H Calcium 8.6 Total Bilirubin 0.2 AST 20 ALT 9 Alkaline Phosphatase 83 Troponin I High Sens < 2.7 C-Reactive Protein 0.38 Total Protein 7.0 Albumin 4.0 Lipase 26 Urine Color Yellow Urine Appearance Clear Urine pH 6.0 Ur Specific [place] 1.020 Urine Protein Negative Urine Glucose (UA) Negative Urine Ketones 15 Urine Blood Negative Urine Nitrite Negative Ur Leukocyte Esterase Trace H Urine RBC 0-2 Urine WBC 0-5 Ur Squamous Epith Cells 0-2 Urine Bacteria None Seen Hyaline Casts 0-2 Airway Mallampati Class: II TM Dist: <=3cm Neck ROM: Full Loose/Missing/Broken Teeth: Yes (a few missing teeth but no loose or broken teeth) Heart: S1S2 Lungs: CTAB Assessment and Plan Assessment Anesthesia Assessment: Anesthesia Plan Discussed and Chart Reviewed Final Anesthetic Review Family History of Problems with Anesthesia: No History of Problems with Anesthesia: No NPO: Yes ASA Class: II Final Preanesthetic Review: No Changes in Pt Med Stat, Meds/Allgs Chart Reviewed, Consent Obtained/Reviewed and Anes Risks/Benef Reviewed Patient Risk: Low Procedure Risk: Low Anesthetic Plan Anesthetic Plan: GA and Agree w/ Assess. and Plan Disposition: Standard PACU
[2024-02-27] MEDS: HYDROmorphone HCl 0.5 MG/0.5 ML SYRINGE 0.25 MG IVPUSH (15:15)
--- NOTE | 2024-02-27 17:20 | PHA.MEDREC ---
Pharmacy Consult ? Medication Reconciliation Pharmacy has completed the medication reconciliation. Med rec was done by Lobo Amaral.
[2024-02-27] MEDS: Piperacillin Sodium/Tazobactam 3.375 GM in 0.9 % Sodium Chloride 50 ML IV ×2 (18:16→23:46)
[2024-02-27] MEDS: 0.9 % Sodium Chloride Flush 3 ML SYRINGE IVFLUSH ×2 (18:28→19:28)
[2024-02-27] MEDS: levETIRAcetam 500 MG TABLET 2500 MG PO (19:24)
[2024-02-27] MEDS: OXcarbazepine 300 MG TABLET PO (19:25)
--- NOTE | 2024-02-27 19:33 | PC.NURSE ---
Pt arrived from PACU @ 1800. Ambulated to BR, steady gait. Pain /. Medicated with morphine per order with good effect. Hx epilepsy. Seizure precautions initiated. Camera placed in room. Pt states she gets aura before seizures. High Fall Risk precautions in place. Sequentials on. Daughter at bedside.
[2024-02-27] MEDS: oxyCODONE HCl Immed Release 5 MG TABLET PO (21:15)
[2024-02-27] MEDS: Acetaminophen 325 MG TABLET 650 MG PO (21:15)
[2024-02-28 03:24] VITALS: BP 119/59; PULSE 70; RESP 18; TEMP 36; O2SAT 93
[2024-02-28] MEDS: Piperacillin Sodium/Tazobactam 3.375 GM in 0.9 % Sodium Chloride 50 ML IV (05:16)
[2024-02-28] MEDS: Levothyroxine Sodium 112 MCG, Levothyroxine Sodium 25 MCG 137 MCG PO (05:16)
[2024-02-28] MEDS: Lactated Ringers 1,000 ML 100 ML IVCONT (05:22)
--- NOTE | 2024-02-28 07:05 | P.PNGS_ITS ---
Subjective Subjective Date of Service: 02/28/24 <Dacia Correa - Last Filed: 02/28/24 07:15> 02/28/24 <Lottie Jones PA-C - Last Filed: 02/28/24 07:53> Interval history: Pt is POD#1 from a laparoscopic cholecystectomy secondary to acute cholecystitis. Pt is doing fairly well post-op. Pain is controlled with current analgesics. Pt does not currently feel as though she needs oxycodone. Pt has not had any bowel movements or flatus but reports eructations. Pt has been tolerating liquids and soup at this time. Pt denies any nausea or vomiting. < Dacia Correa - Last Filed: 02/28/24 07:15> Physical Exam 2 Vital Signs: Vital Signs: Last Vital Signs Temp 96.8 F 02/28/24 03:24 Pulse 70 02/28/24 03:24 Resp 18 02/28/24 03:24 BP 119/59 L 02/28/24 03:24 Pulse Ox 93 02/28/24 03:24 O2 Del Method Room Air 02/28/24 03:24 O2 Flow Rate 2 02/27/24 17:15 BMI result Body Mass Index 27.1 <Dacia Correa - Last Filed: 02/28/24 07:15> Const: General: comfortable and no acute distress <Dacia Correa - Last Filed: 02/28/24 07:15> Orientation/consciousness: patient oriented x3 <Dacia Correa - Last Filed: 02/28/24 07:15> Eyes: Sclerae: sclerae normal (No icterus noted) <Dacia Correa - Last Filed: 02/28/24 07:15> Resp: Effort & Inspection: normal respiratory effort and able to speak in complete sentences <Dacia Correa - Last Filed: 02/28/24 07:15> GI: Inspection: Yes distended and Yes incision (Bandages in place but no erythema or discharge noted surrounding. ) <Dacia Correa - Last Filed: 02/28/24 07:15> Palpation (GI): Soft to palpation and Tenderness to palpation present (GI) (mild tenderness throughout) <Dacia Correa - Last Filed: 02/28/24 07:15> Auscultation: normal bowel sounds <Dacia Sunny - Last Filed: 02/28/24 07:15> Skin: Other: No jaundice noted. <Dacia Vinnieluis eduardo - Last Filed: 02/28/24 07:15> Neuro: General: patient oriented x3 <Dacia Sunny - Last Filed: 02/28/24 07:15> Extrem: Right lower extremity: normal to inspection <Dacia Sunny - Last Filed: 02/28/24 07:15> Left lower extremity: normal to inspection <Dacia Correa - Last Filed: 02/28/24 07:15> Objective Data Active Medications Acetaminophen (Acetaminophen 325 Mg Tablet) 650 mg PO Q6H PRN PRN Reason: Pain, Mild 1-3,fever,headache Last Admin: 02/27/24 21:15 Dose: 650 mg Documented By: NIK Atorvastatin Calcium (Atorvastatin Calcium 40 Mg Tablet) 40 mg PO DAILY [facility] Calcium Carbonate (Calcium Carbonate 750 Mg Tab.Chew) 750 mg PO Q4H PRN PRN Reason: Heartburn Fluticasone/Vilanterol (Fluticasone/Vilanterol 200/25 Blst.W.Dev) 1 puff INHALE RDAILY [facility] Lactated Ringer's (Lr) 1,000 mls @ 100 mls/hr IVCONT .Q10H [facility] Last Admin: 02/28/24 05:22 Dose: 100 mls/hr Documented By: NIK Piperacillin Sod/Tazobactam (Sod 3.375 gm/ Sodium Chloride) 50 mls @ 100 mls/hr IV Q6H [facility] Last Infusion: 02/28/24 05:51 Dose: Infused Documented By: NIK Levetiracetam (Levetiracetam 1,000 Mg Tablet) 1,000 mg PO DAILY [facility] Levetiracetam (Levetiracetam 500 Mg Tablet) 2,500 mg PO BEDTIME [facility] Last Admin: 02/27/24 19:24 Dose: 2,500 mg Documented By: NIK Levothyroxine Sodium 112 mcg/ (Levothyroxine Sodium 25 mcg) 137 mcg PO DAILY@0600 [facility] Last Admin: 02/28/24 05:16 Dose: 137 mcg Documented By: NIK Magnesium Hydroxide (Milk Of Magnesia 30 Ml Oral.Susp) 30 ml PO DAILY PRN PRN Reason: Constipation Melatonin (Melatonin 3 Mg Tablet) 6 mg PO BEDTIME PRN PRN Reason: Insomnia Montelukast Sodium (Montelukast Sodium 10 Mg Tablet) 10 mg PO DAILY [facility] Morphine Sulfate (Morphine Sulfate 4 Mg/Ml Cartridge) 4 mg IVPUSH Q4H PRN; Protocol PRN Reason: Pain, Severe (Pain Scale 7-10) Last Admin: 02/27/24 23:42 Dose: 4 mg Documented By: NIK Naloxone HCl (Naloxone Hcl 0.4 Mg/Ml Vial) 0.04 mg IVPUSH Q5M PRN PRN Reason: Excessive sedation or RR < 8 Ondansetron HCl (Ondansetron Hcl 4 Mg/2 Ml Vial) 4 mg IVPUSH Q8H PRN PRN Reason: Nausea and Vomiting Oxcarbazepine (Oxcarbazepine 300 Mg Tablet) 300 mg PO BID [facility] Last Admin: 02/27/24 19:25 Dose: 300 mg Documented By: NIK Oxycodone HCl (Oxycodone Hcl Immed Release 5 Mg Tablet) 5 mg PO Q4H PRN PRN Reason: Pain, Moderate(Pain Scale 4-6) Last Admin: 02/27/24 21:15 Dose: 5 mg Documented By: NIK Sodium Chloride (0.9 % Sodium Chloride Flush 3 Ml Syringe) [facility] Last Admin: 02/27/24 19:28 Dose: 3 ml Documented By: NIK <Dacia Correa - Last Filed: 02/28/24 07:15> Labs CBC & Chem 7: 02/26/24 22:46 02/26/24 22:46 <Dacia Correa - Last Filed: 02/28/24 07:15> Procedures Date of Service Date of Service: 02/28/24 <Dacia Correa - Last Filed: 02/28/24 07:15> 02/28/24 <Lottie Jones PA-C - Last Filed: 02/28/24 07:53> Progress Note: A&P Assessment and plan (1) Acute cholecystitis due to biliary calculus: Status: Acute <Dacia Correa - Last Filed: 02/28/24 07:15> (2) S/P laparoscopic cholecystectomy: Status: Acute <Dacia Correa - Last Filed: 02/28/24 07:15> Assessment and Plan: Pt is POD#1 from a laparoscopic cholecystectomy. Pt is doing fairly well overall. Can discuss discharge later today. Encourage ambulation and incentive spirometry. <Dacia Correa - Last Filed: 02/28/24 07:15> Pt is POD#1 from a laparoscopic cholecystectomy. Pt is doing fairly well overall. Can discuss discharge later today. Encourage ambulation and incentive spirometry. Agree with above assessment and plan. POD #1 s/p lap jarrell for acute gangrenous cholecystitis. Overall doing well post op, no acute issues. VSS. Abd benign with clean dressings, appropriate post op tenderness. Stable for dc to home today. F/u in office in 1 week. Patient comfortable with plan. <Lottie Jones PA-C - Last Filed: 02/28/24 07:53> Time Spent With Patient Time: Total time managing care of this patient today ____ minutes. <Dacia Correa - Last Filed: 02/28/24 07:15> Quality Stroke Does the patient have a stroke diagnosis?: No <Dacia Correa - Last Filed: 02/28/24 07:15> VTE Prior VTE?: No <Dacia Correa - Last Filed: 02/28/24 07:15> VTE Risk Level:: Surgical - moderate <Dacia Correa - Last Filed: 02/28/24 07:15> VTE Device Contraindication: N/A - Device Ordered <Dacia Correa - Last Filed: 02/28/24 07:15> VTE Drug Contraindication: Treatment Not Indicated <Dacia Correa - Last Filed: 02/28/24 07:15>
[2024-02-28 08:38] VITALS: BP 109/59; PULSE 61; RESP 17; TEMP 37.1; O2SAT 93
[2024-02-28] MEDS: 0.9 % Sodium Chloride Flush 3 ML SYRINGE IVFLUSH (09:00)
[2024-02-28] MEDS: Montelukast Sodium 10 MG TABLET PO (09:01)
[2024-02-28] MEDS: OXcarbazepine 300 MG TABLET PO (09:01)
[2024-02-28] MEDS: Atorvastatin Calcium 40 MG TABLET PO (09:01)
[2024-02-28] MEDS: levETIRAcetam 1,000 MG TABLET 1000 MG PO (09:01)
--- NOTE | 2024-02-28 09:05 | MHC.CM.PN ---
IMM 02/28/24 S/P
[2024-02-28] MEDS: oxyCODONE HCl Immed Release 5 MG TABLET PO (09:17)
--- NOTE | 2024-02-28 09:41 | MHC.CM.PN ---
TANA 02/28/24 S/P [facility] PT lives by herself. She is independent with all functional mobility. Dtr will provide transportation home. DP home self care private transport.
--- NOTE | 2024-02-28 12:44 | P.DS_ITS ---
DS: Providers Provider Date of Service: 02/28/24 Date of admission: 02/27/24 14:42 Date of discharge: 02/28/24 Primary care physician: Black Quevedo MD Attending physician on admission: Cong Allan Attending physician on discharge: Cong Allan DS: Diagnosis Discharge Diagnosis (1) Acute cholecystitis due to biliary calculus: Status: Acute (2) S/P laparoscopic cholecystectomy: Status: Acute DS: Summary Hospital Course Hospital Course: HPI AT ADMISSION: Seda Kendall is a 68 year old female who who presents with acute onset of severe epigastric//right upper quadrant pain radiating around to her back. Because of progression of symptoms she presents to the emergency department. Workup including radiographic studies were consistent w ith acute cholecystitis. Patient was never had such symptoms before. She has never been jaundiced before. She denies any unusual diet. No recent foreign travel. No new meds. No sick contacts. Past medical issues most noteworthy for seizures and asthma. Patient has had prior tubal ligation. She has also had knee arthroscopy. Renal stone surgery/stent. Hand surgery Chart was reviewed and patient evaluated. Patient was a modest leukocytosis. Liver function tests within normal limits. HOSPITAL COURSE: The patient was admitted to the surgical service for further treatment of the acute cholecystitis. She elected to proceed with laparoscopic cholecystectomy, possible open. She was added onto the OR schedule for that day. On 02/27/24, a laparoscopic cholecystectomy was performed by Dr. Allan without complication. She was found to have phlegmonous acute cholecystitis with demonstrating gangrenous changes of the wall. The patient tolerated the procedure well. She had an uncomplicated recovery course. On POD #1, she felt well and was tolerating a solid diet without nausea or vomiting, had good pain control and was ambulating without difficulty. She was hemodynamically stable. Her abdomen was benign with appropriate post op tenderness and clean and intact dressings. She felt ready for discharge. She was discharged to home on 02/28/24 in stable condition. She is to follow up in the office in 1 week. Status at Discharge Overall status at discharge: patient is progressing back to baseline Time Attestation Discharge Coordination Time (in mins): 30 Quality: Safe Use of Opioids Does Pt have an Active Cancer Diagnosis on the Problem List?: No Quality: Stroke Does the patient have a stroke diagnosis?: No Physical Exam Vital Signs: Vital Signs: Last Vital Signs Temp 98.8 F 02/28/24 08:38 Pulse 61 02/28/24 08:38 Resp 17 02/28/24 08:38 BP 109/59 L 02/28/24 08:38 Pulse Ox 93 02/28/24 08:38 O2 Del Method Room Air 02/28/24 08:38 O2 Flow Rate 2 02/27/24 17:15 BMI result Body Mass Index 27.1 Const: General: comfortable, no acute distress and alert Orientation/consciousness: patient oriented x3 Resp: Effort & Inspection: normal respiratory effort GI: Inspection: No distended and Yes incision (dressings clean and intact ) Palpation (GI): Soft to palpation, Tenderness to palpation present (GI) (mild incisional) and no guarding Skin: General skin exam: no rashes or lesions noted and no jaundice Neuro: General: patient oriented x3 and moves all extremities DS: Data Data Completed and Pending Completed studies during hospitalization [Text1]: 02/27/24 14:12 Surgical [PTH] Routine Gallbladder, cholecystectomy: Gangrenous cholecystitis with focal intestinal metaplasia; negative for dysplasia; cholelithiasis Discharge Plan Discharge Patient Disposition: Home, Self-Care Discharge Diagnosis: acute cholecystitis, s/p laparoscopic cholecystectomy Referrals: Cong Allan MD [Physician] - 1 Week Physician,Unknown J [Physician] - 1 Week Discharge Medications: New pantoprazole [Protonix] 40 mg tablet,delayed release (DR/EC) 40 mg PO DAILY Qty: 30 0RF ondansetron 4 mg tablet,disintegrating 4 mg PO Q6-8H PRN (Reason: nausea and vomiting) Qty: 10 0RF docusate sodium [Colace] 100 mg capsule 100 mg PO BID Qty: 20 0RF oxycodone 5 mg tablet 5 mg PO Q4H PRN (Reason: pain (scale score 7-10)) Qty: 24 0RF Rx Instructions: Partial Fill upon patient request. acetaminophen 500 mg capsule 1,000 mg PO Q6H PRN (Reason: pain) Qty: 20 0RF Continued montelukast 10 mg tablet 10 mg PO DAILY Qty: 30 6RF levothyroxine 137 mcg tablet 137 mcg PO DAILY Qty: 30 3RF atorvastatin 40 mg tablet 40 mg PO DAILY Qty: 90 0RF levetiracetam 1,000 mg tablet 1,000 mg PO DAILY levetiracetam 500 mg tablet 2,500 mg PO BEDTIME oxcarbazepine 300 mg tablet 300 mg PO BID budesonide-formoterol [Symbicort] 160-4.5 mcg/actuation HFA aerosol inhaler 2 puff PO BID Qty: 10.2 0RF Discharge Orders: Discharge Order (Routine); Ordered 02/28/24 Ordered By: Lottie Jones Diet: Low fat, low cholesterol Activity on Discharge: No heavy lifting Stand Alone Forms: Patient Portal Discharge page Print Language: Montenegrin Activity Restrictions/Additional Instructions: Apply an ice pack for short intervals (20 minutes on, followed by at least 20 minutes off) for the first 2 days. Do not apply heat. Do not use creams, lotions, or topical antibiotics. These can cause infection or allergic reaction. Ok to shower 48 hours after your surgery. Remove dressings in 2 days and replace as needed. You have steri strips (small white cloth strips) covering your incision- these will fall off ~1 week. Follow up in office with Dr. Allan in 1 week. ([phone]) Take Tylenol Extra-strength 1-2 tabs every 6 hours for the first day, then as needed. Oxycodone every 6-8 hours as needed for pain. Colace 100 mg twice a day as needed for constipation. No heavy lifting (>10lbs) or strenuous activity! Call Your Doctor If: -Your temperature exceeds 101.5? F -You experience excessive pain or swelling -You have an unexpected reaction to medication -You have excessive bleeding -You experience continued vomiting/nausea -Your incision begins to separate -Your incision shows signs of infection such as increased redness, swelling, excessive pain, drainage (light blood or clear fluid is normal) or heat Drink plenty of fluids Medicine for nausea as advised Start taking medication for gastritis and follow up with your PCP Take your seizure medication as prescribed Care Plan Goals: Return to baseline health and resume normal activities following recovery period. Health Concerns: acute gangrenous cholecystitis Plan of Treatment: s/p laparoscopic cholecystectomy f/u in office in 1 week Assessment: Doing well post op. Patient Instructions: Laparoscopic Cholecystectomy (DC) Discharge Date/Time: 02/28/24 11:27
== END 2024-02-28 11:27 | disposition home or self-care (01) ==
LOC: HO.ED 02-27 07:20 → HO.EDOVER 02-27 14:50 → HO.S3 02-27 15:00
PROVIDERS: Internal Medicine; Admitting Provider Surgery; Emergency Provider Emergency Medicine; PCP Internal Medicine; Visit Provider Surgery
PROC: 0FT44ZZ Resection of Gallbladder, Percutaneous Endoscopic Approach (ICD-10-PCS; CPT 47562; principal; 2024-02-27 14:30)
DX: K80.60 Calculus of gallbladder and bile duct with cholecystitis, unspecified, without obstruction (principal); K82.8 Other specified diseases of gallbladder; K82.A1 Gangrene of gallbladder in cholecystitis; R07.9 Chest pain, unspecified; R10.11 Right upper quadrant pain; R11.10 Vomiting, unspecified; J45.909 Unspecified asthma, uncomplicated; G40.909 Epilepsy, unspecified, not intractable, without status epilepticus; E05.00 Thyrotoxicosis with diffuse goiter without thyrotoxic crisis or storm; Z79.899 Other long term (current) drug therapy
CPT/HCPCS: 47562; 36415; 74176; 76705; 80053; 81001; 83690; 84484; 85025; 86140; 88304; 93005; 96361; 96365; 96366; 96367; 96375; 96376; 99221; 99285; J0696; J1100; J1171; J1836; J1953; J2003; J2250; J2270; J2405; J2543; J2704; J2795; J3010; J7120

== ENCOUNTER → 2024-02-26 | Outpatient (BNV) | payer MEDICARE, MEDICAID, SELFPAY | PROVIDERS: Emergency Provider Emergency Medicine; Visit Provider Internal Medicine Cardiovascular Disease | DX: R07.9 Chest pain, unspecified (principal) | CPT/HCPCS: 93010 ==

== ENCOUNTER → 2024-02-27 00:58 | Outpatient (BNV) | payer MEDICARE, MEDICAID, SELFPAY | PROVIDERS: Emergency Provider Emergency Medicine; Visit Provider Surgery | DX: K80.20 Calculus of gallbladder without cholecystitis without obstruction (principal); K80.00 Calculus of gallbladder with acute cholecystitis without obstruction | CPT/HCPCS: 47562; 99223 ==

== ENCOUNTER → 2024-02-27 01:43 | Outpatient (BNV) | payer MEDICARE, MEDICAID, SELFPAY | PROVIDERS: Emergency Provider Emergency Medicine; Visit Provider General Practice | DX: K80.20 Calculus of gallbladder without cholecystitis without obstruction (principal); K57.30 Diverticulosis of large intestine without perforation or abscess without bleeding; K44.9 Diaphragmatic hernia without obstruction or gangrene | CPT/HCPCS: 76705 ==

== ENCOUNTER 2024-03-05 08:25 | Outpatient (AMB) | payer MEDICARE, MEDICAID, SELFPAY ==
--- NOTE | 2024-03-05 08:35 | A.OFFVIS_ITS ---
Intake Visit Reasons: s/p laparoscopic cholecystectomy Intake Note: Patient here s/p laparoscopic cholecystectomy. Reports incision healing well. Patient c/o: little seizure yesterday. Only taking Aleve as needed. Surgery: 02-27-2024 Wound Treatment Rn Required: No Accompanied by: Self / Same As Patient Allergies tetracycline Allergy (Intermediate, Verified 03/05/24 08:36) vomiting penicillin V Allergy (Unknown, Verified 03/05/24 08:36) Unknown HPI Comments Details: Patient was status post laparoscopic cholecystectomy for gangrenous cholecystitis. He is doing quite well patient was starting a diet. Having regular bowel habits. She has minimal incisional discomfort. She is increasing her activity level [facility] Medical History (Updated 02/27/24 @ 08:16 by Cong Allan MD) Hypothyroidism Epilepsy Asthma Graves disease Surgical History (Updated 03/05/24 @ 08:53 by Cong Allan MD) S/P laparoscopic cholecystectomy (02/27/24) History of thumb surgery History of renal stent (~2002) History of arthroscopy of left knee History of tubal ligation Family History Father No problems noted. Mother No problems noted. Social History Household Members: None Housing: Apartment Alcohol intake: current Alcohol intake frequency: holidays/special occasions only Patient Tobacco Use Status: Never used Tobacco e-Cigarette/Vaping Use: Never Used Second Hand Smoke Exposure: No Substance Use Type: Marijuana service: No Current occupational status: disabled Current occupation: [employer]ering at [employer]- Right Handed Cognitive needs: No Hearing needs: No Vision needs: No Physical Exam Eyes Other: Anicteric GI Other: Abdomen is soft. All wounds clean dry and intact healing well Assessment & Plan Assessment & Plan (1) Status post laparoscopic cholecystectomy: Code(s): Z90.49 - Acquired absence of other specified parts of digestive tract Category: Surgical Plan Patient has been given local instructions, avoiding strenuous activities next few weeks time, and otherwise follow-up p.r.n.. Diet as tolerated. All questions answered. Coding Level of Care Code Global (38163) Diagnoses Status post laparoscopic cholecystectomy Z90.49
== END 2024-03-05 08:42 | disposition home or self-care (01) ==
PROVIDERS: Visit Provider Surgery
DX: Z90.49 Acquired absence of other specified parts of digestive tract (principal)
CPT/HCPCS: 99024

== ENCOUNTER → 2024-03-05 08:25 | Outpatient (BNVA) | payer MEDICARE, MEDICAID, SELFPAY | PROVIDERS: Visit Provider Surgery | DX: Z90.49 Acquired absence of other specified parts of digestive tract (principal) | CPT/HCPCS: 99212 ==

== ENCOUNTER 2024-03-11 12:47 | Outpatient (AMB) | payer MEDICARE, MEDICAID, SELFPAY ==
--- NOTE | 2024-03-11 12:48 | MHC.PC.OV ---
Vital Signs 03/11/24 12:52 Height 5 ft 3 in Weight 134 lb 4 oz BMI 23.8 BP 130/76 Blood Pressure Location Lt brachial Position Sitting Pulse 67 Pulse Source Pulse Oximeter Temp 97.1 F Temp Source Skin Pulse Oximetry (%) 98 Oxygen Delivery Method Room Air Intake Visit Reasons: [facility] 02/27 cholecystitis s/p surgery Intake Note: Patient is here for hospital discharge and TCM follow up. Patient was discharged from [facility] on 02/28/24. Clerk Manager Required: No Picker And Packer: Not Required per policy Accompanied by: Self / Same As Patient Allergies tetracycline Allergy (Intermediate, Verified 03/11/24 12:52) vomiting penicillin V Allergy (Unknown, Verified 03/11/24 12:52) Unknown Medication List - Last Reconciled 03/11/24 by Black Quevedo MD acetaminophen 1,000 mg (2 x 500 mg) PO Q6H PRN atorvastatin 40 mg PO DAILY docusate sodium (Colace) 100 mg PO BID levetiracetam 1,000 mg PO DAILY levetiracetam 2,500 mg PO BEDTIME levothyroxine 137 mcg PO DAILY montelukast 10 mg PO DAILY ondansetron 4 mg PO Q6-8H PRN oxcarbazepine 300 mg PO BID pantoprazole (Protonix) 40 mg PO DAILY Symbicort 160-4.5 mcg/actuation (budesonide-formoterol) 2 puffs PO BID NS Tobacco use date assessed: 03/11/24 Fall risk assessment: No Falls in past year Last assessed Fall Risk: 03/11/24 Dental Screening Dental Screen Date: 03/11/24 Did you have a dental visit in the last 12 months?: Yes Did you have a dental problem in the last 6 months where you did not have access to dental care?: No Was dental information given to patient?: Patient has dentist HPI [facility] 02/27 cholecystitis s/p surgery HPI Details had an emergency lap choly for cholecystitis with gangrene; did well; off antibiotics; feels well and eating normally [facility] TCM Information Date of Discharge 02/28/24 Discharged From [facility] Medical History (Updated 03/07/24 @ 00:02 by Amadou Barkley) Hypothyroidism Epilepsy Asthma Graves disease Surgical History S/P laparoscopic cholecystectomy (02/27/24) History of thumb surgery History of renal stent (~2002) History of arthroscopy of left knee History of tubal ligation Family History Father No problems noted. Mother No problems noted. Social History Household Members: None Housing: Apartment Alcohol intake: current Alcohol intake frequency: holidays/special occasions only Patient Tobacco Use Status: Never used Tobacco e-Cigarette/Vaping Use: Never Used Second Hand Smoke Exposure: No Substance Use Type: Marijuana service: No Current occupational status: disabled Current occupation: [employer]- Right Handed Cognitive needs: No Hearing needs: No Vision needs: No Questionnaire PHQ-9 Over the last 2 weeks, how often have you been bothered by any of the following problems? 1. Little interest or pleasure in doing things: not at all 2. Feeling down, depressed, or hopeless: not at all 3. Trouble falling or staying asleep, or sleeping too much: not at all 4. Feeling tired or having little energy: not at all 5. Poor appetite or overeating: not at all 6. Feeling bad about yourself - or that you are a failure or have let yourself or your family down: not at all 7. Trouble concentrating on things, such as reading the newspaper or watching television: not at all 8. Moving or speaking so slowly that other people could have noticed. Or the opposite - being so fidgety or restless that you have been moving around a lot more than usual: not at all 9. Thoughts that you would be better off or of hurting yourself in some way: not at all Total score: 0 Depression Screening Interpretation: Negative Depression Screening Done: Yes Source: Developed by Drs. Vivek West, Keeley Cantor, Nithin Amaya and colleagues, with an educational ketty from [employer]. Thrive Questionnaire Date Thrive assessed: 02/28/24 AUDIT C Alcohol Use Questionnaire (AUDIT-C) 1. How often do you have a drink containing alcohol?: Never Total Score: 0 KRYSTINA-7 AMB Questionnaire KRYSTINA-7 Date KRYSTINA - 7 assessed: 03/11/24 Feeling nervous, anxious, or on edge: 0 = Not at all Not being able to stop or control worryin = Not at all Worrying too much about different things: 0 = Not at all Trouble relaxin = Not at all Being so restless that it is hard to sit still: 0 = Not at all Becoming easily annoyed or irritable: 0 = Not at all Feeling afraid as if something awful might happen: 0 = Not at all Total KRYSTINA-7 score (0-4 normal; 5-9 mild; 10-14 moderate; 15-21 severe): 0 Source: Developed by Drs. Vivek West, Keeley Cantor, Nithin Amaya and colleagues, with an educational ketty from [employer]. Review of Systems Const Denies chills, Denies headache(s) and Denies weight loss ENT Denies headache(s) Card Denies chest pain, Denies syncope, Denies irregular heart rhythm and Denies dyspnea Resp Denies chest congestion, Denies cough and Denies dyspnea GI Denies abdominal pain, Denies change in stool character, Denies nausea and Denies vomiting Musc Denies deformity and Denies joint swelling Neuro Denies syncope and Denies headache(s) Physical exam (Primary Care) Vital Signs: Last Vital Signs Temp 97.1 F 03/11/24 12:52 Pulse 67 03/11/24 12:52 BP 130/76 03/11/24 12:52 Pulse Ox 98 03/11/24 12:52 Oxygen Delivery Method Room Air 03/11/24 12:52 BMI result Body Mass Index 23.8 Tobacco/Smoking Status: Tobacco use Status Tobacco use date assessed 03/11/24 03/11/24 12:58 Patient Tobacco Use Status Never used Tobacco 03/11/24 12:49 e-Cigarette/Vaping Use Never Used 03/11/24 12:49 PHQ-9: PHQ-9 Score PHQ-9: Total score 0 03/11/24 12:50 Depression Screening Interpretation: Negative Thrive Assessment: Date of Thrive Assessment Date Thrive assessed 02/28/24 03/11/24 12:49 Const General: cooperative, comfortable, no acute distress and alert Neck Neck: Yes no lymphadenopathy Thyroid: Thyroid normal Resp Effort & Inspection: normal respiratory effort Auscultation: clear to auscultation bilaterally Percussion: percussion normal Cardio Jugular venous distension: no JVD Palpation: normal PMI Rate: regular rate Rhythm: regular rhythm Heart sounds: S1 normal heart sound present and S2 normal heart sound present GI Inspection: Yes normal to inspection Palpation (GI): No hepatosplenomegaly present Skin General skin exam: no rashes or lesions noted Extrem General: Yes no clubbing, cyanosis or edema Coding Level of Care Code Est Pt Level 3 (58889) Diagnoses Status post laparoscopic cholecystectomy Z90.49 Assessment & Plan Assessment & Plan (1) Status post laparoscopic cholecystectomy: Code(s): Z90.49 - Acquired absence of other specified parts of digestive tract Category: Surgical Plan: stable; plan as per surgery
[2024-03-11 12:52] VITALS: BP 130/76; PULSE 67; TEMP 36.2; O2SAT 98; BMI 23.8
== END 2024-03-11 13:07 | disposition home or self-care (01) ==
PROVIDERS: PCP Internal Medicine; Visit Provider Internal Medicine
DX: Z90.49 Acquired absence of other specified parts of digestive tract (principal)

== ENCOUNTER → 2024-03-11 12:47 | Outpatient (BNVA) | payer MEDICARE, MEDICAID, SELFPAY | PROVIDERS: PCP Internal Medicine; Visit Provider Internal Medicine | DX: Z90.49 Acquired absence of other specified parts of digestive tract (principal) | CPT/HCPCS: 99212 ==

== ENCOUNTER 2024-04-08 11:00 | Outpatient (AMB) | payer MEDICARE, MEDICAID, SELFPAY ==
[2024-04-08 11:07] VITALS: BP 117/67; PULSE 66; O2SAT 99; BMI 24.1
--- NOTE | 2024-04-08 11:07 | MHC.OFFVIS ---
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 Her symptoms continue to be controlled Symbicort 160, Singulair, and albuterol MDI.? She denies any recent exacerbations. Patient did have recent emergency gallbladder surgery from which has recovered well. [facility] Medical History (Updated 03/07/24 @ 00:02 by Amadou Barkley) Hypothyroidism Epilepsy Asthma Graves disease Surgical History S/P laparoscopic cholecystectomy (02/27/24) History of thumb surgery History of renal stent (~2002) History of arthroscopy of left knee History of tubal ligation Family History Father No problems noted. Mother No problems noted. Social History Household Members: None Housing: Apartment Alcohol intake: current Alcohol intake frequency: holidays/special occasions only Patient Tobacco Use Status: Never used Tobacco e-Cigarette/Vaping Use: Never Used Second Hand Smoke Exposure: No Substance Use Type: Marijuana service: No Current occupational status: disabled Current occupation: [employer]ering at [employer]- Right Handed Cognitive needs: No Hearing needs: No Vision needs: No Review of Systems Const Denies daytime sleepiness, Denies excessive sweating, Denies fatigue, Denies fever(s), Denies lethargy, Denies malaise, Denies night sweats, Denies snoring and Denies weight loss Eyes Denies blurry vision and Denies itchy eyes ENT Denies nasal congestion, Denies post nasal drip, Denies sinus pain, Denies sinus pressure and Denies other ( Thrush) Card Denies chest pain, Denies pedal edema, Denies dyspnea, Denies orthopnea and Denies paroxysmal nocturnal dyspnea Resp Denies cough, Denies hemoptysis, Denies excessive phlegm production, Denies dyspnea, Denies snoring and Denies wheezing GI Denies abdominal pain and Denies heartburn Musc Denies myalgias, Denies arthralgias and Denies joint swelling Skin/Breast Denies rash Neuro Denies memory loss and Denies seizure-like activity Psych Denies abnormal sleep pattern, Denies anxiety and Denies memory loss Endo Denies excessive sweating, Denies fatigue and Denies heat intolerance Mandeep/Lymph Denies easy bruising Aller/Immun Denies itchy eyes, Denies seasonal rhinorrhea and Denies wheezing Physical Exam Vital Signs: Last Vital Signs Pulse 66 04/08/24 11:07 BP 117/67 04/08/24 11:07 Pulse Ox 99 04/08/24 11:07 Oxygen Delivery Method Room Air 04/08/24 11:07 BMI result Body Mass Index 24.1 Const General: no acute distress and alert Nutritional Appearance: not obese Orientation/consciousness: Other orientation findings ( oriented) HEENT Head: Yes atraumatic Eyes General: appearance normal, both eyes and all related structures Sclerae: sclerae normal EOM: EOMs intact bilaterally Neck Neck: Yes supple Lymphatic: no lymphadenopathy noted Resp Effort & Inspection: normal respiratory effort and no use of accessory muscles Auscultation: clear to auscultation bilaterally Cardio Rate: regular rate Rhythm: regular rhythm Heart sounds: no gallops, no murmurs and no rubs Skin General skin exam: other ( warm) Extrem General: No clubbing, No cyanosis and No edema Assessment & Plan Assessment & Plan (1) Moderate persistent asthma: Code(s): J45.40 - Moderate persistent asthma, uncomplicated Category: Medical Plan: Well controlled on Symbicort and albuterol MDI. Continue current regimen. (2) Environmental allergies: Code(s): Z91.09 - Other allergy status, other than to drugs and biological substances Category: Medical Plan: Well controlled on Singulair. Continue current regimen. Coding Level of Care Code Est Pt Level 4 (93819) Diagnoses Moderate persistent asthma J45.40 Environmental allergies Z91.09
== END 2024-04-08 11:46 | disposition home or self-care (01) ==
PROVIDERS: PCP Internal Medicine; Visit Provider Internal Medicine Pulmonary Disease
DX: J45.40 Moderate persistent asthma, uncomplicated (principal); Z91.09 Other allergy status, other than to drugs and biological substances
CPT/HCPCS: 99214

== ENCOUNTER → 2024-04-08 11:00 | Outpatient (BNVA) | payer MEDICARE, MEDICAID, SELFPAY | PROVIDERS: PCP Internal Medicine; Visit Provider Internal Medicine Pulmonary Disease | DX: J45.40 Moderate persistent asthma, uncomplicated (principal); Z91.09 Other allergy status, other than to drugs and biological substances | CPT/HCPCS: 99212 ==

== ENCOUNTER 2024-06-09 14:47 | Outpatient (AMB) | payer MEDICARE, MEDICAID, SELFPAY ==
--- NOTE | 2024-06-09 14:59 | MHC.PC.OV ---
Vital Signs 06/09/24 15:01 Height 5 ft 3 in Weight 137 lb 4 oz BMI 24.3 BP 132/60 Blood Pressure Location Lt brachial Position Sitting Pulse 59 Pulse Source Pulse Oximeter Temp 97.3 F Temp Source Temporal Artery Scan Pulse Oximetry (%) 97 Oxygen Delivery Method Room Air Intake Visit Reasons: COLBY from Dr. Quevedo/3 mo follow up Intake Note: Patient is here today for COLBY from Dr Quevedo and Epilepsy, Hypothyroidism, Asthma Bed Operator Required: No Correctional Therapy Teacher: Not Required per policy Accompanied by: Self / Same As Patient Allergies tetracycline Allergy (Intermediate, Verified 06/09/24 15:24) vomiting penicillin V Allergy (Unknown, Verified 06/09/24 15:24) Unknown Medication List - Last Reconciled 06/09/24 by Rere Ferreira PA-C acetaminophen 1,000 mg (2 x 500 mg) PO Q6H PRN atorvastatin 40 mg PO DAILY docusate sodium (Colace) 100 mg PO BID levetiracetam 1,000 mg PO DAILY levetiracetam 2,500 mg PO BEDTIME levothyroxine 137 mcg PO DAILY montelukast 10 mg PO DAILY ondansetron 4 mg PO Q6-8H PRN oxcarbazepine 300 mg PO BID pantoprazole (Protonix) 40 mg PO DAILY Symbicort 160-4.5 mcg/actuation (budesonide-formoterol) 2 puffs PO BID NS Ventolin HFA 90 mcg/actuation (albuterol sulfate) 2 puffs inhalation Q4H PRN NS Tobacco use date assessed: 06/09/24 Fall risk assessment: No Falls in past year Last assessed Fall Risk: 06/09/24 Dental Screening Dental Screen Date: 03/11/[address] Quevedo/3 mo follow up HPI Details 68-year-old female with past medical history of asthma, hypothyroidism last seen by Dr. Quevedo last seen 03/2024 coming in for follow up/COLBY.? In review of the notes, patient was seen by pulmonology 04/2024 continue on current medication regimen. Presenting with management of post-cholecystectomy dietary concerns and bilateral knee pain. She reports persistent dietary intolerance to fatty foods, notably cheese, since her cholecystectomy in February. Vomiting accompanies attempts to consume these foods, with a noted impact on diet and weight loss. She describes bilateral knee pain, with the left knee previously treated by arthroscopy, now experiencing worsening symptoms along with the right knee which is increasingly painful and cracking, likely affecting mobility and daily function. Epileptic seizures are effectively managed, typically with stable control, and hypothyroidism and asthma remain consistent with prior management. Notably, she has a history of chronic insomnia and nightmares since childhood linked to personal traumatic events, along with a history of anxiety which is currently stabilized. Patient declines mammogram and Pap smear. [facility] Medical History Trigger finger of right thumb Trigger finger of left thumb Hypothyroidism Epilepsy Asthma Graves disease Surgical History Status post laparoscopic cholecystectomy S/P laparoscopic cholecystectomy (02/27/24) History of thumb surgery History of renal stent (~2002) History of arthroscopy of left knee History of tubal ligation Family History Father No problems noted. Mother No problems noted. 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 1. Little interest or pleasure in doing things: not at all 2. Feeling down, depressed, or hopeless: not at all 3. Trouble falling or staying asleep, or sleeping too much: nearly every day 4. Feeling tired or having little energy: not at all 5. Poor appetite or overeating: not at all 6. Feeling bad about yourself - or that you are a failure or have let yourself or your family down: not at all 7. Trouble concentrating on things, such as reading the newspaper or watching television: not at all 8. Moving or speaking so slowly that other people could have noticed. Or the opposite - being so fidgety or restless that you have been moving around a lot more than usual: not at all 9. Thoughts that you would be better off or of hurting yourself in some way: not at all Total score: 3 Depression Screening Interpretation: Positive Depression Screening Follow-up: Existing condition and Declines treatment Depression Screening Done: Yes Source: Developed by Drs. Vivek West, Keeley Cantor, Nithin Amaya and colleagues, with an educational ketty from [employer]. Thrive Questionnaire Date Thrive assessed: 06/02/24 I am a: Patient What is your living situation today?: I have a steady place to live Within the past 12 months, did the food you bought not last and you didn't have the money to get more?: Never true Within the past 12 months, did you worry whether your food would run out before you got money to buy more?: Sometimes True Do you have trouble paying for medicines?: I choose not to answer this question Do you have trouble getting transportation to medical appointments?: No Do you have trouble paying your heating and electricity bill?: Yes Do you have trouble taking care of your child, family member or friend?: No Do you have trouble with day-to-day activities such as bathing, preparing meals, shopping, managing finances, etc.?: No Are you currently unemployed and looking for a job?: No Are you interested in more education?: No Please select the resources that you would like help with: None Currently or been in a relationship where the following occur: No concerns reported THRIVE Score: 2 AUDIT C Alcohol Use Questionnaire (AUDIT-C) 1. How often do you have a drink containing alcohol?: Monthly or less 2. How many drinks containing alcohol do you have on a typical day when you are drinking?: 1 or 2 3. How often do you have six or more drinks on one occasion?: Never Total Score: 1 KRYSTINA-7 AMB Questionnaire KRYSTINA-7 Date KRYSTINA - 7 assessed: 03/11/24 Feeling nervous, anxious, or on edge: 1 = Several days Not being able to stop or control worryin = Several days Worrying too much about different things: 1 = Several days Trouble relaxin = Several days Being so restless that it is hard to sit still: 1 = Several days Becoming easily annoyed or irritable: 0 = Not at all Feeling afraid as if something awful might happen: 1 = Several days Total KRYSTINA-7 score (0-4 normal; 5-9 mild; 10-14 moderate; 15-21 severe): 6 Source: Developed by Drs. Vivek West, Keeley Cantor, Nithin Amaya and colleagues, with an educational ketty from [employer]. KRYSTINA-7 Assessment Billing KRYSTINA-7 Assessment Tool: KRYSTINA-7 Assessment 84900 Review of Systems Const Denies body aches, Denies chills, Denies fever(s), Denies headache(s) and Denies poor appetite Eyes Reports no additional complaints ENT Denies dizziness and Denies headache(s) Card Denies chest pain, Denies lightheadedness and Denies dyspnea Resp Denies cough and Denies dyspnea GI Denies abdominal pain, Denies constipation, Denies diarrhea, Denies nausea and Denies vomiting Reports no additional complaints Musc Reports no additional complaints and Denies abnormal gait Skin/Breast Reports system reviewed and no additional complaints, except as documented Neuro Denies abnormal gait, Denies dizziness and Denies headache(s) Psych Reports no additional complaints Physical exam (Primary Care) Vital Signs: Last Vital Signs Temp 97.3 F 06/09/24 15:01 Pulse 59 06/09/24 15:01 BP 132/60 06/09/24 15:01 Pulse Ox 97 06/09/24 15:01 Oxygen Delivery Method Room Air 06/09/24 15:01 BMI result Body Mass Index 24.3 Tobacco/Smoking Status: Tobacco use Status Tobacco use date assessed 06/09/24 06/09/24 15:08 Patient Tobacco Use Status Never used Tobacco 06/09/24 15:08 e-Cigarette/Vaping Use Never Used 06/09/24 15:08 PHQ-9: PHQ-9 Score PHQ-9: Total score 3 06/09/24 15:08 Depression Screening Interpretation: Positive Depression Screening Follow-up: Existing condition and Declines treatment Thrive Assessment: Date of Thrive Assessment Date Thrive assessed 06/02/24 06/09/24 15:08 Currently or been in a relationship where the following occur: No concerns reported Const General: cooperative, healthy appearing, comfortable and no acute distress Orientation/consciousness: patient oriented x3 HENIN Head: Yes normocephalic Ears: hearing grossly normal bilaterally General nose exam: Normal external nose present Eyes General: appearance normal, both eyes and all related structures Conjunctivae: conjunctivae normal Neck Neck: Yes full ROM and Yes no lymphadenopathy Resp Effort & Inspection: normal respiratory effort Auscultation: clear to auscultation bilaterally, no crackles, no rales, no rhonchi and no wheezes Cardio Rate: regular rate Rhythm: regular rhythm Skin General skin exam: no rashes or lesions noted Neuro General: patient oriented x3 Gait exam (Neuro): Normal gait present Extrem Other: Crepitus of bilateral knees General: Yes normal to inspection, Yes full ROM and No edema Psych Affect: normal affect Attitude: cooperative Insight: Good insight present (Psych) Judgement: Good judgement present (Psych) Coding Level of Care Code Est Pt Level 4 (54123) Diagnoses Epilepsy G40.909 Hypothyroidism E03.9 Moderate persistent asthma J45.40 Environmental allergies Z91.09 Bilateral knee pain M25.561; M25.562 Hypercholesterolemia E78.00 S/P cholecystectomy Z90.49 Additional Codes KRYSTINA-7 Assessment Billing - KRYSTINA-7 Assessment Tool: KRYSTINA-7 Assessment 30087 ([id number]) Assessment & Plan Assessment & Plan (1) Epilepsy: Comment: Dr. Rodriguez for neurology - last seizure 02/2024 Code(s): G40.909 - Epilepsy, unspecified, not intractable, without status epilepticus Category: Medical Plan: Patient follows with Dr. Rodriguez for Neurology her last seizure was in February of 2024. She is currently on 3500 mg of Keppra and 300 mg of oxcarbazepine twice daily. (2) Hypothyroidism: Code(s): E03.9 - Hypothyroidism, unspecified Category: Medical Plan: Patient is overdue for thyroid labs. Last TSH was 19 no T4 level to review. Patient is on levothyroxine 137 mcg. Plan to obtain repeat thyroid labs. (3) Moderate persistent asthma: Code(s): J45.40 - Moderate persistent asthma, uncomplicated Category: Medical Plan: Asthma currently controlled on present medications. Continue on _ Symbicort and albuterol.? Avoid triggers such as allergies. (4) Environmental allergies: Code(s): Z91.09 - Other allergy status, other than to drugs and biological substances Category: Medical Plan: Continue on [id number] antihistamine and eyedrops. (5) Bilateral knee pain: Code(s): M25.561 - Pain in right knee; M25.562 - Pain in left knee Category: Medical Plan: patient complaining of bilateral knee pain does have a history of left knee scope many years ago in [place]. Ordered for Xr for further evaluation and referral was placed for orthopedics. (6) Hypercholesterolemia: Code(s): E78.00 - Pure hypercholesterolemia, unspecified Category: Medical Plan: Avoid foods that are high in cholesterol such as red meat, fried foods, eggs and baked goods. Triglyceride goal of less than 150 and LDL goal of less than 130. Continue on atorvastatin 40 (7) S/P cholecystectomy: Code(s): Z90.49 - Acquired absence of other specified parts of digestive tract Category: Surgical Plan: Patient having dietary changes since cholecystectomy. Plan to initiate cholestyramine as needed for fatty meals. Plan The patient's management plan includes addressing her digestive issues post-cholecystectomy with a trial of cholecyramine before fatty meals and a cautious reintroduction of low-fat cheeses. Further orthopedic evaluation and an x-ray were ordered to address bilateral knee pain. Additionally, we discussed her longstanding insomnia and explored medical options like prazosin for nightmares. Blood work will provide updates on cholesterol levels and screen for diabetes as part of ongoing health maintenance. Her epilepsy medications continue effectively under neurologist guidance. Attention to reducing marijuana usage for better health stability was also advised. This note was constructed using voice recognition software. While every effort has been made to ensure accuracy and transportation driver, still areas may have been included sometimes these areas may affect the content or meeting of the given symptoms. Total time spent caring for the patient today was 30 minutes. This includes time spent before the visit reviewing the chart, time spent during the visit, and time spent after the visit and documentation. Patient was informed and verbally consented to the use of an ambient scribe for clinic note documentation during this visit. Orders: Orders XR knee standing BI Today M25.561 - Pain in right knee, M25.562 - Pain in left knee Free T4 (Free Thyroxine) Today E03.9 - Hypothyroidism, unspecified, Z00.00 - Encounter for general adult medical examination without abnormal findings TSH reflex Free T4 Today E03.9 - Hypothyroidism, unspecified, Z00.00 - Encounter for general adult medical examination without abnormal findings Lipid Panel Today E78.00 - Pure hypercholesterolemia, unspecified Hemoglobin A1c Today Z13.1 - Encounter for screening for diabetes mellitus Referrals Orthopedics Referral M25.561 - Pain in right knee, M25.562 - Pain in left knee Medications: New cholestyramine TID w/ meals 2 grams PO TID 201.6 grams 0RF Changed From levetiracetam 1,000 mg PO DAILY To levetiracetam 3,500 mg PO DAILY
[2024-06-09 15:01] VITALS: BP 132/60; PULSE 59; TEMP 36.3; O2SAT 97; BMI 24.3
== END 2024-06-09 15:51 | disposition home or self-care (01) ==
LOC: HO.HMCH 14:48
DX: G40.909 Epilepsy, unspecified, not intractable, without status epilepticus (principal); E03.9 Hypothyroidism, unspecified; J45.40 Moderate persistent asthma, uncomplicated; Z91.09 Other allergy status, other than to drugs and biological substances; M25.561 Pain in right knee; M25.562 Pain in left knee; E78.00 Pure hypercholesterolemia, unspecified; Z90.49 Acquired absence of other specified parts of digestive tract

== ENCOUNTER → 2024-06-09 14:47 | Outpatient (BNVA) | payer MEDICARE, MEDICAID, SELFPAY | DX: G40.909 Epilepsy, unspecified, not intractable, without status epilepticus (principal); E03.9 Hypothyroidism, unspecified; J45.40 Moderate persistent asthma, uncomplicated; Z91.09 Other allergy status, other than to drugs and biological substances; M25.561 Pain in right knee; M25.562 Pain in left knee; E78.00 Pure hypercholesterolemia, unspecified; Z90.49 Acquired absence of other specified parts of digestive tract | CPT/HCPCS: 96127; 99212 ==

== ENCOUNTER 2024-06-16 07:16 | Outpatient (REF) | payer MEDICARE, MEDICAID, SELFPAY ==
--- NOTE | ~2024-06-16 | XR_ITS ---
CLINICAL HISTORY: M25.561 - Pain in right knee 1 view bilateral knee Comparison: None Findings: Bones intact. No dislocations. There is bilateral osteoarthritis. No joint effusion. No radiopaque foreign body. IMPRESSION: 1. No acute findings. This document has been electronically signed by: Raymundo Goss MD on 06/16/2024 07:53:22
[2024-06-16 08:12] LABS: Estimated Average Glucose 111 mg/dL; Hemoglobin A1C 124.3764 umol/L; Hemoglobin A1c % 5.5 % (<6.0); Total Hemoglobin (HGBA1C) 3371.6231 umol/L
[2024-06-16 08:18] LABS: Cholesterol 170 mg/dL (<200); HDL Cholesterol 68 mg/dL (>40); LDL Cholesterol Calculated 87 mg/dL (<100); Triglycerides 77 mg/dL (<150)
[2024-06-16 08:34] LABS: Free T4 (Free Thyroxine) 0.88 ng/dL (0.71-1.85)
== END 2024-06-16 07:17 | disposition home or self-care (01) ==
LOC: HO.LAB 07:16
DX: Z00.00 Encounter for general adult medical examination without abnormal findings (principal); M25.561 Pain in right knee; M25.562 Pain in left knee; Z13.1 Encounter for screening for diabetes mellitus; E78.00 Pure hypercholesterolemia, unspecified; E03.9 Hypothyroidism, unspecified
CPT/HCPCS: 36415; 73565; 80061; 83036; 84439; 84443

== ENCOUNTER → 2024-06-16 07:27 | Outpatient (BNV) | payer MEDICARE, MEDICAID, SELFPAY | PROVIDERS: Visit Provider Specialist | DX: M25.561 Pain in right knee (principal) | CPT/HCPCS: 73565 ==

== ENCOUNTER 2024-07-21 08:19 | Outpatient (REF) | payer MEDICARE, MEDICAID, SELFPAY ==
[2024-07-21 10:04] LABS: Free T4 (Free Thyroxine) 1.25 ng/dL (0.71-1.85); TSH reflex Free T4 1.45 uIU/mL (0.32-4.0)
== END 2024-07-21 08:20 | disposition home or self-care (01) ==
LOC: HO.LAB 08:19
DX: E03.9 Hypothyroidism, unspecified (principal)
CPT/HCPCS: 36415; 84439; 84443

== ENCOUNTER 2024-08-05 11:02 | Outpatient (AMB) | payer MEDICARE, MEDICAID, SELFPAY ==
[2024-08-05 11:06] VITALS: BMI 24.3
--- NOTE | 2024-08-05 11:06 | A.OFFVIS_ITS ---
Vital Signs 08/05/24 11:06 Height 5 ft 3 in Weight 137 lb 4 oz BMI 24.3 Intake Visit Reasons: Left knee pain and giving way Intake Note: Seda is a 68 year old female who presents with complaints of progressively worsening left knee pain and giving way. The patient also has intermittent discomfort in her right knee. She states that her right knee discomfort is to lerable to her at this time. She states that her left knee symptoms have gotten worse over the last year in spite of continued non operative treatments. She has failed the last 6 weeks of conservative treatment which has included Tylenol, anti-inflammatory medicines, physical therapy exercises and a home exercise program. She states that her left knee will give out several times per day. The patient did undergo left knee arthroscopic surgery in 2012 while living in [place]. She got fairly good relief from that procedure initially. Allergies tetracycline Allergy (Intermediate, Verified 08/05/24 11:12) vomiting penicillin V Allergy (Unknown, Verified 08/05/24 11:12) Unknown Medication List - Last Reconciled 08/05/24 by Phoenix Ivory MD acetaminophen 1,000 mg (2 x 500 mg) PO Q6H PRN atorvastatin 40 mg PO DAILY cholestyramine 2 grams PO TID docusate sodium (Colace) 100 mg PO BID levetiracetam 3,500 mg PO DAILY levothyroxine 137 mcg PO DAILY montelukast 10 mg PO DAILY oxcarbazepine 300 mg PO BID pantoprazole (Protonix) 40 mg PO DAILY Symbicort 160-4.5 mcg/actuation (budesonide-formoterol) 2 puffs PO BID NS Ventolin HFA 90 mcg/actuation (albuterol sulfate) 2 puffs inhalation Q4H PRN NS PFSH Medical History Trigger finger of right thumb Trigger finger of left thumb Hypothyroidism Epilepsy Asthma Graves disease Surgical History Status post laparoscopic cholecystectomy S/P laparoscopic cholecystectomy (02/27/24) History of thumb surgery History of renal stent (~2002) History of arthroscopy of left knee History of tubal ligation Family History Father No problems noted. Mother No problems noted. 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 Cognitive needs: No Hearing needs: No Vision needs: No Physical Exam Vital Signs: BMI result Body Mass Index 24.3 Const Other: Well-nourished well-developed very friendly female awake alert and oriented x3 in no acute distress Extrem Other: Bilateral lower extremity examination shows good capillary refill, no skin lesions noted, normal sensation light touch Left knee examination shows a minimal effusion, mild crepitus with range of motion, tenderness along her medial joint line, positive Wai's test, no instability Results Reviewed Results Reviewed: X-rays of the patient's bilateral knee show mild to moderate diffuse joint space narrowing, no acute bony abnormalities Assessment & Plan Assessment & Plan (1) Tear of medial meniscus of left knee: Code(s): S83.242A - Other tear of medial meniscus, current injury, left knee, initial encounter Category: Medical Plan Ms. Kendall presents with progressively worsening left knee pain and mechanical symptoms most likely due to a medial meniscus tear. Thus, I will send the patient for an MRI of her left knee for further evaluation. I will see her back after the MRI is completed to discuss the findings and treatment options. Feel free to call me at any time should questions regarding her orthopedic management arise. Thank you very much for asking me to see this very friendly patient. I spent 21 minutes in reviewing the patient's records and imaging studies, seeing the patient and documenting in the medical record. Orders: Orders MR knee LT wo con 08/05/24 S83.242A - Other tear of medial meniscus, current injury, left knee, initial encounter Medications: New celecoxib (Celebrex) 200 mg PO DAILY PRN 30 caps 3RF pain Coding Level of Care Code New Pt Level 3 (09381) Complex EM visit Add On G2211 Diagnoses Tear of medial meniscus of left knee S83.242A
== END 2024-08-05 11:34 | disposition home or self-care (01) ==
LOC: HO.HOS 11:03
PROVIDERS: Visit Provider Orthopaedic Surgery
DX: S83.242A Other tear of medial meniscus, current injury, left knee, initial encounter (principal)
CPT/HCPCS: 99203; G2211

== ENCOUNTER → 2024-08-05 11:02 | Outpatient (BNVA) | payer MEDICARE, MEDICAID, SELFPAY | PROVIDERS: Visit Provider Orthopaedic Surgery | DX: S83.242A Other tear of medial meniscus, current injury, left knee, initial encounter (principal) | CPT/HCPCS: 99202 ==

== ENCOUNTER 2024-08-23 09:06 | Outpatient (REF) | payer MEDICARE, MEDICAID, SELFPAY ==
--- NOTE | ~2024-08-23 | MR_ITS ---
CLINICAL HISTORY: S83.242A - Other tear of medial meniscus, current injury, left knee, ini... Exam: MRI of the left knee without intravenous contrast. Comparison: Radiographs June 16, 2024. Findings: There is severe tricompartmental osteoarthritis. This is most severe in the medial compartment. In the medial compartment, there is complete loss of the joint space with [id number] alignment. Near-complete loss of the articular cartilage of the medial femoral condyle medial tibial plateau with subcortical bone marrow edema. No subcortical insufficiency fracture seen at this time. There is bulky osteophyte formation. The medial meniscus is macerated and extruded into the medial gutter. Within the lateral compartment, there is bulky osteophyte formation with joint space narrowing. Posterior root lateral meniscal tear is identified. There is mild lateral positioning and lateral tilting of the patella in relation of the trochlea with joint space narrowing, osteophyte formation, extensive cartilage loss. Moderate-sized knee joint effusion with synovitis. Small Elizabeth's cyst is evident. Tiny loose bodies measuring up to 3 mm in size. No intact fibers of the anterior cruciate ligament are identified. However, there is no edema in the expected location of the ACL. This results in a positive anterior drawer sign. Posterior cruciate ligament is intact. Extensor mechanism is intact. Collateral ligaments are intact. Bones are severely osteopenic. Impression: 1. Severe tricompartmental osteoarthritis, most extensive within the medial compartment. 2. ACL deficient knee. This is likely related to remote ACL tear. 3. Osteopenia without acute fracture. This document has been electronically signed by: Carlos Enrique Bowden MD on 08/27/2024 00:39:24
== END 2024-08-23 09:07 | disposition home or self-care (01) ==
LOC: HO.MRI 09:06
PROVIDERS: Visit Provider Orthopaedic Surgery
DX: S83.242A Other tear of medial meniscus, current injury, left knee, initial encounter (principal)
CPT/HCPCS: 73721

== ENCOUNTER → 2024-08-23 09:06 | Outpatient (BNV) | payer MEDICARE, MEDICAID, SELFPAY | PROVIDERS: Visit Provider Radiology Diagnostic Radiology | DX: M17.32 Unilateral post-traumatic osteoarthritis, left knee (principal) | CPT/HCPCS: 73721 ==

== ENCOUNTER 2024-08-25 12:43 | Outpatient (AMB) | payer MEDICARE, MEDICAID, SELFPAY ==
--- NOTE | 2024-08-25 12:46 | A.OFFVIS_ITS ---
Vital Signs 08/25/24 12:46 Height 5 ft 3 in Intake Visit Reasons: 6 mnts SZ Allergies tetracycline Allergy (Intermediate, Verified 08/25/24 12:52) vomiting penicillin V Allergy (Unknown, Verified 08/25/24 12:52) Unknown Medication List - Last Reconciled 08/25/24 by Gina Salinas CNP acetaminophen 1,000 mg (2 x 500 mg) PO Q6H PRN atorvastatin 40 mg PO DAILY celecoxib (Celebrex) 200 mg PO DAILY PRN cholestyramine 2 grams PO TID docusate sodium (Colace) 100 mg PO BID levetiracetam 1,000 mg orally 3 tablets/day; 90 days levetiracetam 500 mg orally 1 tab/day; 90 days levothyroxine 137 mcg PO DAILY loratadine 10 mg PO DAILY montelukast 10 mg PO DAILY oxcarbazepine 300 mg PO BID pantoprazole (Protonix) 40 mg PO DAILY Symbicort 160-4.5 mcg/actuation (budesonide-formoterol) 2 puffs PO BID NS Ventolin HFA 90 mcg/actuation (albuterol sulfate) 2 puffs inhalation Q4H PRN NS HPI Comments Details: 68 yo woman with epilepsy. Spells included an aura of feeling sickness in stomach or chest pain for a few minutes, leading to loss of feeling in arms and legs, to slumping on the ground. At times, she has bitten her tongue. Whole episode might last for 10-15 minutes leading to tiredness. She had been smoking a little marijuana to counter stress. She had emergency cholecystectomy in 02/2024 and was feeling okay now. She had mild spell in 04/2024. No further episodes. No missed doses of medication. No medication side effects. Sleep was okay. 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 She was undergoing work up for left knee pain. [facility] Medical History (Updated 08/25/24 @ 12:48 by Gina Salinas CNP) Cervical spondylarthritis Temporal lobe epilepsy Trigger finger of right thumb Trigger finger of left thumb Hypothyroidism Epilepsy Asthma Graves disease Surgical History (Updated 06/09/24 @ 16:17 by Rere Ferreira PA-C) Status post laparoscopic cholecystectomy S/P laparoscopic cholecystectomy (02/27/24) History of thumb surgery History of renal stent (~2002) History of arthroscopy of left knee History of tubal ligation Family History Father No problems noted. Mother No problems noted. 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 Cognitive needs: No Hearing needs: No Vision needs: No Review of Systems Const Denies chills, Denies daytime sleepiness, Reports difficulty sleeping, Denies fatigue, Denies fever(s), Denies frequent falls, Denies headache(s), Denies increased appetite, Denies poor appetite, Denies snoring, Denies weakness, Denies weight gain and Denies weight loss Eyes Denies loss of vision ENT Denies vertigo, Denies dizziness and Denies headache(s) Card Denies chest pain at rest, Denies chest pain with activity, Denies syncope, Denies leg edema and Denies palpitations Resp Denies snoring GI Denies constipation, Denies heartburn, Denies diarrhea and Denies nausea Denies urinary frequency, Denies urinary incontinence and Denies urinary urgency Musc Denies abnormal gait, Denies numbness and Denies tingling Skin/Breast Denies dry skin and Denies rash Neuro Denies abnormal gait, Denies vertigo, Denies dizziness, Denies syncope, Denies frequent falls, Denies headache(s), Denies lack of coordination, Denies loss of vision, Denies memory loss, Denies numbness, Denies restless legs, Reports seizure-like activity, Denies tingling, Denies paresthesias, Denies tremor(s) and Denies weakness Psych Denies anxiety, Denies depression, Denies auditory hallucinations, Denies memory loss, Denies visual hallucinations and Denies suicidal ideation Endo Denies fatigue and Denies palpitations Physical Exam Const Other: General Appearance:? normal, in no acute distress. Skin:? no rashes, no significant birthmarks. Heart:? S1, S2 normal, no murmurs. Lungs:? clear anteriorly and posteriorly. Extremities:? no edema. Psych:? alert, oriented, cognitive function intact, cooperative with exam. Neuro Other: Mental Status:?Normal attention, orientation, memory and affect.? Cranial Nerves:?Pupils are equal, round and reactive to light. External occular muscles are intact. Visual moran are full. Face is symmetrical. Facial sensations are normal. Tongue is midline. Palate elevates symmetrically. Shoulder shrugging is normal. Hearing to bedside conversation is normal. Sensory Exam:?....? Coordination:?No ataxia,?no titubation.? Gait Exam: Within normal limits. Cerebellar Signs:?[id number] and [id number]-[id number] is normal.? Extrapyramidal System:?No tremor, rigidity with normal facial expressions.? Pronator Drift:?Not present.? Involuntary Movements:?No tremors seen.? Speech:?Normal.? Assessment & Plan Assessment & Plan (1) Temporal lobe epilepsy: Code(s): G40.109 - Localization-related (focal) (partial) symptomatic epilepsy and epileptic syndromes with simple partial seizures, not intractable, without status epilepticus Category: Medical Plan: Continue levetiracetam 500mg 1 tablet daily Continue levetiracetam 1000mg 3 tablets daily Continue oxcarbazepine 300mg 1 tablet twice a day She was educated on the importance of medication compliance and risk associated with missed doses, including seizures. (2) Cervical spondylarthritis: Code(s): M47.812 - Spondylosis without myelopathy or radiculopathy, cervical region Category: Medical Qualifiers: Spinal osteoarthritis complication: unspecified spinal osteoarthritis Qualified Code(s): M47.812 - Spondylosis without myelopathy or radiculopathy, cervical region Plan . Coding Level of Care Code Est Pt Level 3 (24114) Diagnoses Temporal lobe epilepsy G40.109 Osteoarthritis of cervical spine, unspecified spinal osteoarthritis complication status M47.812 Spinal osteoarthritis complication: unspecified spinal osteoarthritis
== END 2024-08-25 13:02 | disposition home or self-care (01) ==
LOC: HO.HSM 12:44
PROVIDERS: PCP Internal Medicine; Visit Provider Registered Nurse
DX: G40.109 Localization-related (focal) (partial) symptomatic epilepsy and epileptic syndromes with simple partial seizures, not intractable, without status epilepticus (principal); M47.812 Spondylosis without myelopathy or radiculopathy, cervical region
CPT/HCPCS: 99213

== ENCOUNTER → 2024-08-25 12:43 | Outpatient (BNVA) | payer MEDICARE, MEDICAID, SELFPAY | PROVIDERS: PCP Internal Medicine; Visit Provider Registered Nurse | DX: G40.109 Localization-related (focal) (partial) symptomatic epilepsy and epileptic syndromes with simple partial seizures, not intractable, without status epilepticus (principal); M47.812 Spondylosis without myelopathy or radiculopathy, cervical region; Z79.899 Other long term (current) drug therapy | CPT/HCPCS: 99212 ==

== ENCOUNTER 2024-09-02 11:27 | Outpatient (AMB) | payer MEDICARE, MEDICAID, SELFPAY ==
--- NOTE | 2024-09-02 11:40 | MHC.OFFVIS ---
Vital Signs 09/02/24 11:43 Height 5 ft 3 in Weight 130 lb BMI 23.0 Intake Visit Reasons: OV- Left knee MRI review Intake Note: Seda is a 68 year old female who presents today for a MRI review of the left knee. The patient reports mild intermittent discomfort in her left knee. She denies any locking or giving way. She does take Celebrex which gives her fairly good relief. Allergies tetracycline Allergy (Intermediate, Verified 09/02/24 11:43) vomiting penicillin V Allergy (Unknown, Verified 09/02/24 11:43) Unknown Medication List - Last Reconciled 09/02/24 by Phoenix Ivory MD acetaminophen 1,000 mg (2 x 500 mg) PO Q6H PRN atorvastatin 40 mg PO DAILY celecoxib (Celebrex) 200 mg PO DAILY PRN cholestyramine 2 grams PO TID docusate sodium (Colace) 100 mg PO BID levetiracetam 1,000 mg orally 3 tablets/day; 90 days levetiracetam 500 mg orally 1 tab/day; 90 days levothyroxine 137 mcg PO DAILY loratadine 10 mg PO DAILY montelukast 10 mg PO DAILY oxcarbazepine 300 mg PO BID pantoprazole (Protonix) 40 mg PO DAILY Symbicort 160-4.5 mcg/actuation (budesonide-formoterol) 2 puffs PO BID NS Ventolin HFA 90 mcg/actuation (albuterol sulfate) 2 puffs inhalation Q4H PRN NS PFSH Medical History (Updated 09/02/24 @ 12:24 by Phoenix Ivory MD) Cervical spondylarthritis Temporal lobe epilepsy Trigger finger of right thumb Trigger finger of left thumb Hypothyroidism Epilepsy Asthma Graves disease Surgical History (Updated 06/09/24 @ 16:17 by Rere Ferreira PA-C) Status post laparoscopic cholecystectomy S/P laparoscopic cholecystectomy (02/27/24) History of thumb surgery History of renal stent (~2002) History of arthroscopy of left knee History of tubal ligation Family History Father No problems noted. Mother No problems noted. 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 Cognitive needs: No Hearing needs: No Vision needs: No Physical Exam Vital Signs: BMI result Body Mass Index 23.0 Const Other: Well-nourished well-developed very friendly female awake alert and oriented x3 in no acute distress Extrem Other: Bilateral lower extremity examination shows good capillary refill, no skin lesions noted, normal sensation light touch Left knee examination shows a minimal effusion, palpable crepitus with range of motion, pain with range of motion, no instability Results Reviewed Results Reviewed: MRI of the patient's left knee shows severe degenerative changes in the medial compartment, no acute bony abnormalities Assessment & Plan Assessment & Plan (1) Arthritis of left knee: Code(s): M17.12 - Unilateral primary osteoarthritis, left knee Category: Medical Plan Ms. Kendall presents with left knee pain due to osteoarthritis. I had a lengthy discussion with the patient regarding treatment options. At this point the patient's symptoms are tolerable to her. She wishes to hold off on total knee replacement surgery for as long as possible. She will continue with her home exercise program. She will contact me prior to her follow-up appointment in 6 months should any questions or concerns arise. Feel free to call me at any time should questions regarding her orthopedic management arise. I spent 20 minutes in reviewing the patient's records and imaging studies, seeing the patient and documenting in the medical record. Coding Level of Care Code Est Pt Level 3 (38479) Complex EM visit Add On G2211 Diagnoses Arthritis of left knee M17.12
[2024-09-02 11:43] VITALS: BMI 23.0
== END 2024-09-02 12:16 | disposition home or self-care (01) ==
LOC: HO.HOS 11:28
PROVIDERS: PCP Internal Medicine; Visit Provider Orthopaedic Surgery
DX: M17.12 Unilateral primary osteoarthritis, left knee (principal)
CPT/HCPCS: 99213; G2211

== ENCOUNTER → 2024-09-02 11:27 | Outpatient (BNVA) | payer MEDICARE, MEDICAID, SELFPAY | PROVIDERS: PCP Internal Medicine; Visit Provider Orthopaedic Surgery | DX: M25.562 Pain in left knee (principal); M17.12 Unilateral primary osteoarthritis, left knee; Z79.899 Other long term (current) drug therapy | CPT/HCPCS: 99212 ==

== ENCOUNTER 2024-10-16 14:35 | Outpatient (AMB) | payer MEDICARE, MEDICAID, SELFPAY ==
[2024-10-16 14:40] VITALS: BP 96/56; PULSE 101; O2SAT 96; BMI 24.4
--- NOTE | 2024-10-16 14:40 | MHC.PC.OV ---
Vital Signs 10/16/24 14:40 10/16/24 15:37 Height 5 ft 3 in Weight 137 lb 8 oz BMI 24.4 BP 96/56 L 110/70 Blood Pressure Location Lt brachial Lt brachial Position Sitting Sitting Pulse 101 H 68 Pulse Source Auscultation Pulse Oximetry (%) 96 Oxygen Delivery Method Room Air Intake Visit Reasons: Annual Exam - see comments L Tacker Required: No Accompanied by: Self / Same As Patient Allergies tetracycline Allergy (Intermediate, Verified 10/16/24 15:22) vomiting penicillin V Allergy (Unknown, Verified 10/16/24 15:22) Unknown aspirin (ASA) Adverse Reaction (Mild, Verified 10/16/24 15:22) dermatitis Medication List - Last Reconciled 10/16/24 by Rere Ferreira PA-C acetaminophen 1,000 mg (2 x 500 mg) PO Q6H PRN atorvastatin 40 mg PO DAILY celecoxib (Celebrex) 200 mg PO DAILY PRN cholestyramine 2 grams PO TID docusate sodium (Colace) 100 mg PO BID levetiracetam 1,000 mg orally 3 tablets/day; 90 days levetiracetam 500 mg orally 1 tab/day; 90 days levothyroxine 137 mcg PO DAILY loratadine 10 mg PO DAILY montelukast 10 mg PO DAILY oxcarbazepine 300 mg PO BID 90 days pantoprazole (Protonix) 40 mg PO DAILY Symbicort 160-4.5 mcg/actuation (budesonide-formoterol) 2 puffs PO BID NS Ventolin HFA 90 mcg/actuation (albuterol sulfate) 2 puffs inhalation Q4H PRN NS Tobacco use date assessed: 10/16/24 Fall risk assessment: 2 + Falls in past year Last assessed Fall Risk: 10/16/24 Dental Screening Dental Screen Date: 10/16/24 Did you have a dental visit in the last 12 months?: No Did you have a dental problem in the last 6 months where you did not have access to dental care?: No Was dental information given to patient?: No HPI Annual Exam - see comments HPI Details 68-year-old female with past medical history of asthma, hypothyroidism last seen 06/2024 coming in for annual exam. Presenting with knee pain and a suspected transient ischemic attack (TIA). The patient has been experiencing worsening knee pain, initially managed with Celebrex, but now considering knee replacement surgery as recommended by Dr. Reza. The patient reported an episode two weeks prior to the visit, characterized by sudden numbness without warning, lasting over 10 minutes, and resolving spontaneously. There was no loss of consciousness or chest pain, which differed from her typical seizure episodes. The patient's cholesterol level was previously recorded at 87 mg/dL, with a target goal of less than 70 mg/dL due to the suspected TIA. She is currently on atorvastatin, which has been effective. The patient reports well-controlled asthma symptoms with the use of Symbicort and albuterol, and the absence of pets has contributed to symptom improvement. Mammogram: Declined Pap smear: Declines Colonoscopy: Cologuard test ordered Vaccinations: Not up-to-date on pneumonia or shingles and advised to have these done. Patient will think about this. [facility] Medical History Cervical spondylarthritis Temporal lobe epilepsy Trigger finger of right thumb Trigger finger of left thumb Hypothyroidism Epilepsy Asthma Graves disease Surgical History Status post laparoscopic cholecystectomy S/P laparoscopic cholecystectomy (02/27/24) History of thumb surgery History of renal stent (~2002) History of arthroscopy of left knee History of tubal ligation Family History Father No problems noted. Mother No problems noted. 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 1. Little interest or pleasure in doing things: not at all 2. Feeling down, depressed, or hopeless: not at all 3. Trouble falling or staying asleep, or sleeping too much: nearly every day 4. Feeling tired or having little energy: not at all 5. Poor appetite or overeating: not at all 6. Feeling bad about yourself - or that you are a failure or have let yourself or your family down: not at all 7. Trouble concentrating on things, such as reading the newspaper or watching television: not at all 8. Moving or speaking so slowly that other people could have noticed. Or the opposite - being so fidgety or restless that you have been moving around a lot more than usual: not at all 9. Thoughts that you would be better off or of hurting yourself in some way: not at all Total score: 3 Depression Screening Interpretation: Positive Depression Screening Follow-up: Existing condition and Declines treatment Depression Screening Done: Yes Source: Developed by Drs. Vivek West, Keeley Cantor, Nithin Amaya and colleagues, with an educational ketty from [employer] Thrive Questionnaire Date Thrive assessed: 10/16/24 I am a: Patient What is your living situation today?: I have a steady place to live Within the past 12 months, did the food you bought not last and you didn't have the money to get more?: Never true Within the past 12 months, did you worry whether your food would run out before you got money to buy more?: Sometimes True Do you have trouble paying for medicines?: I choose not to answer this question Do you have trouble getting transportation to medical appointments?: No Do you have trouble paying your heating and electricity bill?: Yes Do you have trouble taking care of your child, family member or friend?: No Do you have trouble with day-to-day activities such as bathing, preparing meals, shopping, managing finances, etc.?: No Are you currently unemployed and looking for a job?: No Are you interested in more education?: No Please select the resources that you would like help with: None Currently or been in a relationship where the following occur: No concerns reported THRIVE Score: 2 AUDIT C Alcohol Use Questionnaire (AUDIT-C) 1. How often do you have a drink containing alcohol?: Monthly or less 2. How many drinks containing alcohol do you have on a typical day when you are drinking?: 1 or 2 3. How often do you have six or more drinks on one occasion?: Never Total Score: 1 KRYSTINA-7 AMB Questionnaire KRYSTINA-7 Date KRYSTINA - 7 assessed: 10/16/24 Feeling nervous, anxious, or on edge: 1 = Several days Not being able to stop or control worryin = Several days Worrying too much about different things: 1 = Several days Trouble relaxin = Several days Being so restless that it is hard to sit still: 1 = Several days Becoming easily annoyed or irritable: 0 = Not at all Feeling afraid as if something awful might happen: 1 = Several days Total KRYSTINA-7 score (0-4 normal; 5-9 mild; 10-14 moderate; 15-21 severe): 6 Source: Developed by Drs. Vivek West, Keeley Cantor, Nithin Amaya and colleagues, with an educational ketty from [employer] Review of Systems Const Denies body aches, Denies fatigue, Denies fever(s), Denies frequent falls, Denies headache(s) and Denies weakness Eyes Reports no additional complaints and Denies change in vision ENT Denies dysphagia, Denies dizziness, Denies facial pain, Denies headache(s), Denies nasal congestion and Denies odynophagia Card Denies chest pain, Denies syncope, Denies irregular heart rhythm, Denies leg edema, Denies lightheadedness and Denies dyspnea Resp Denies cough and Denies dyspnea GI Denies abdominal pain, Denies constipation, Denies dysphagia, Denies dyspepsia, Denies diarrhea, Denies nausea, Denies odynophagia and Denies vomiting Denies urinary frequency, Denies dysuria, Denies urinary hesitancy and Denies urinary urgency Musc Denies back pain and Denies myalgias Skin/Breast Reports system reviewed and no additional complaints, except as documented Neuro Denies dizziness, Denies syncope, Denies frequent falls, Denies headache(s) and Denies weakness Psych Reports no additional complaints Endo Denies fatigue Physical exam (Primary Care) Vital Signs: Last Vital Signs Pulse 68 10/16/24 15:37 BP 110/70 10/16/24 15:37 Pulse Ox 96 10/16/24 14:40 Oxygen Delivery Method Room Air 10/16/24 14:40 BMI result Body Mass Index 24.4 Tobacco/Smoking Status: Tobacco use Status Tobacco use date assessed 10/16/24 10/16/24 14:46 Patient Tobacco Use Status Never used Tobacco 10/16/24 14:46 e-Cigarette/Vaping Use Never Used 10/16/24 14:46 PHQ-9: PHQ-9 Score PHQ-9: Total score 3 10/16/24 17:10 Depression Screening Interpretation: Positive Depression Screening Follow-up: Existing condition and Declines treatment Thrive Assessment: Date of Thrive Assessment Date Thrive assessed 10/16/24 10/16/24 14:46 Currently or been in a relationship where the following occur: No concerns reported Const General: cooperative, healthy appearing, comfortable and no acute distress Orientation/consciousness: patient oriented x3 HENMT Head: Yes normocephalic Ears: hearing grossly normal bilaterally, external ears normal, TM's normal bilaterally and EAC's normal General nose exam: Normal external nose present Face and sinus: Yes normal facial exam and Yes sinuses nontender Mouth: Normal oral and palatal mucosa present and tongue normal Throat: Yes posterior oropharynx normal Eyes General: appearance normal, both eyes and all related structures Conjunctivae: conjunctivae normal Pupils: Equal, round and reactive pupils present EOM: EOMs intact bilaterally and No Nystagmus present Neck Neck: Yes normal visual inspection, Yes full ROM and Yes no lymphadenopathy Chest Chest palpation & inspection: normal inspection of the chest Resp Effort & Inspection: normal respiratory effort Auscultation: clear to auscultation bilaterally, no crackles, no rales, no rhonchi, no wheezes and breath sounds present Cardio Rate: regular rate Rhythm: regular rhythm Peripheral pulses: radial pulses present and dorsalis pedis present GI Inspection: Yes normal to inspection and No Abdominal wall edema Palpation (GI): Soft to palpation, not firm and nontender Auscultation: normal bowel sounds Rectal Exam - Female: deferred General: Yes no CVA tenderness Back/Spine/Pelvis Back: no CVA tenderness Skin General skin exam: no rashes or lesions noted Neuro General: patient oriented x3 Cranial nerves: Yes CN's II-XII intact bilaterally, Yes Equal, round and reactive pupils present, Yes Midline tongue present, Yes Ability to bilaterally elevate shoulders present and No Nystagmus present Gait exam (Neuro): Normal gait present Motor exam (neuro): 5/5 motor strength present throughout Extrem General: Yes normal to inspection, Yes full ROM, No no pedal edema and No edema Psych Speech and movement: Normal speech and movement present Affect: normal affect Insight: Good insight present (Psych) Judgement: Good judgement present (Psych) Results AMB Hemoglobin A1c AMB Hemoglobin A1c 5.8 % Last Edit by Robyn Christie MA on 10/16/24 15:15 Results Reviewed Results Reviewed: Laboratory Last Values Hgb A1c (Clinic) 5.8 % (4.0-6.0) 10/16/24 15:14 Coding Level of Care Code Est Pt Prev Care >65y(59143) Diagnoses Annual physical exam Z00.00 Epilepsy G40.909 Hypothyroidism E03.9 Moderate persistent asthma J45.40 Environmental allergies Z91.09 Bilateral knee pain M25.561; M25.562 Hypercholesterolemia E78.00 Numbness R20.0 Assessment & Plan Assessment & Plan (1) Annual physical exam: Code(s): Z00.00 - Encounter for general adult medical examination without abnormal findings Category: Medical Plan: Patient is refusing mammogram and Pap smear and understands the risks of not having these done. She is overdue for Cologuard which has been ordered today. Blood work is up-to-date and has been reviewed today. Healthy diet and regular exercise is encouraged. (2) Epilepsy: Comment: Dr. Rodriguez for neurology - last seizure 02/2024 Code(s): G40.909 - Epilepsy, unspecified, not intractable, without status epilepticus Category: Medical Plan: Patient follows with Dr. Rodriguez for Neurology her last seizure was in February of 2024. She is currently on 3500 mg of Keppra and 300 mg of oxcarbazepine twice daily. (3) Hypothyroidism: Code(s): E03.9 - Hypothyroidism, unspecified Category: Medical Plan: Patient is on levothyroxine 137 mcg and last labs were WNL (4) Moderate persistent asthma: Code(s): J45.40 - Moderate persistent asthma, uncomplicated Category: Medical Plan: Asthma currently controlled on present medications. Continue on Symbicort and albuterol.? Avoid triggers such as allergies. (5) Environmental allergies: Code(s): Z91.09 - Other allergy status, other than to drugs and biological substances Category: Medical Plan: Continue on [id number] antihistamine and eyedrops. (6) Bilateral knee pain: Code(s): M25.561 - Pain in right knee; M25.562 - Pain in left knee Category: Medical Plan: The patient is considering knee replacement surgery as recommended by Dr. Reza due to worsening knee pain. In the interim, she is using Celebrex for pain management. (7) Hypercholesterolemia: Code(s): E78.00 - Pure hypercholesterolemia, unspecified Category: Medical Plan: Avoid foods that are high in cholesterol such as red meat, fried foods, eggs and baked goods. Triglyceride goal of less than 150 and LDL goal of less than 70. Continue on atorvastatin 40. Consider increase in Atorvastatin based on neurology work up. (8) Numbness: Code(s): R20.0 - Anesthesia of skin Category: Medical Plan: For sudden episode of numbness concern for possible TIA. I recommended the patient follow up with her neurologist at this time. She is not a candidate for aspirin as she does have allergies to this medication. From a primary care standpoint plan to monitor her cholesterol with an LDL goal less than 70, blood pressure with a goal less than 130/80 and blood sugars with A1c goal less than 7%. The patient experienced an episode concerning of a TIA, characterized by sudden numbness without loss of consciousness. A neurology consultation is recommended for further evaluation. She will reach out to her neurologist to schedule an appointment as soon as possible. Plan This note was constructed using voice recognition software. While every effort has been made to ensure accuracy and ostomy care nurse, still areas may have been included sometimes these areas may affect the content or meeting of the given symptoms. Total time spent caring for the patient today was 30 minutes. This includes time spent before the visit reviewing the chart, time spent during the visit, and time spent after the visit and documentation. Patient was informed and verbally consented to the use of an ambient scribe for clinic note documentation during this visit. Orders: Orders AMB Hemoglobin A1c Today Z13.1 - Encounter for screening for diabetes mellitus Referrals Cologuard Test Z12.11 - Encounter for screening for malignant neoplasm of colon
[2024-10-16 15:37] VITALS: BP 110/70; PULSE 68
== END 2024-10-16 15:50 | disposition home or self-care (01) ==
LOC: HO.HMCH 14:36
DX: Z00.00 Encounter for general adult medical examination without abnormal findings (principal); G40.909 Epilepsy, unspecified, not intractable, without status epilepticus; E03.9 Hypothyroidism, unspecified; J45.40 Moderate persistent asthma, uncomplicated; Z91.09 Other allergy status, other than to drugs and biological substances; M25.561 Pain in right knee; M25.562 Pain in left knee; E78.00 Pure hypercholesterolemia, unspecified; R20.0 Anesthesia of skin; Z13.1 Encounter for screening for diabetes mellitus

== ENCOUNTER → 2024-10-16 14:35 | Outpatient (BNVA) | payer MEDICARE, MEDICAID, SELFPAY | DX: Z00.00 Encounter for general adult medical examination without abnormal findings (principal); G40.909 Epilepsy, unspecified, not intractable, without status epilepticus; E03.9 Hypothyroidism, unspecified; J45.40 Moderate persistent asthma, uncomplicated; M25.561 Pain in right knee; M25.562 Pain in left knee; E78.00 Pure hypercholesterolemia, unspecified; R20.0 Anesthesia of skin; Z91.09 Other allergy status, other than to drugs and biological substances; Z79.899 Other long term (current) drug therapy | CPT/HCPCS: 83036; 96127; 99397 ==

== ENCOUNTER 2024-10-29 14:25 | Outpatient (AMB) | payer MEDICARE, MEDICAID, SELFPAY ==
--- NOTE | 2024-10-29 14:34 | MHC.OFFVIS ---
Intake Visit Reasons: sooner appt Sz stroke? Allergies tetracycline Allergy (Intermediate, Verified 10/29/24 15:02) vomiting penicillin V Allergy (Unknown, Verified 10/29/24 15:02) Unknown aspirin (ASA) Adverse Reaction (Mild, Verified 10/29/24 15:02) dermatitis Medication List - Last Reconciled 10/29/24 by Gina Salinas, RAJAT acetaminophen 1,000 mg (2 x 500 mg) PO Q6H PRN atorvastatin 40 mg PO DAILY celecoxib (Celebrex) 200 mg PO DAILY PRN cholestyramine 2 grams PO TID docusate sodium (Colace) 100 mg PO BID levetiracetam 1,000 mg orally 3 tablets/day; 90 days levetiracetam 500 mg orally 1 tab/day; 90 days levothyroxine 137 mcg PO DAILY loratadine 10 mg PO DAILY montelukast 10 mg PO DAILY oxcarbazepine 300 mg PO BID 90 days pantoprazole (Protonix) 40 mg PO DAILY Symbicort 160-4.5 mcg/actuation (budesonide-formoterol) 2 puffs PO BID NS Ventolin HFA 90 mcg/actuation (albuterol sulfate) 2 puffs inhalation Q4H PRN NS HPI Comments Details: 68-year-old woman with epilepsy. Spells included an aura of feeling sickness in stomach or chest pain for a few minutes, leading to loss of feeling in arms and legs, to slumping on the ground. At times, she has bitten her tongue. Whole episode might last for 10-15 minutes leading to tiredness. She had been smoking a little marijuana to counter stress. She was here for an episode that happened at the end of 09/2024. She was sitting on the couch when she suddenly had feeling of numbness from chest upward. She felt herself leaning to one side where she stayed for about 10 minutes until symptoms resolved. She remained awake and alert throughout the episode. She was emotional and tired afterward. No tongue bite or incontinence. In the past, she says seizures typically present with crushing chest pain, followed by numbness and tingling, and convulsions. She had been using marijuana, and admits to using more marijuana than usual, before the event. Her last known seizure was in 04/2024. She denies any missed doses of medication. No further episodes. She also reported needing tooth extraction and dental implant, and was planning for L TKR in the near future. [facility] Medical History Cervical spondylarthritis Temporal lobe epilepsy Trigger finger of right thumb Trigger finger of left thumb Hypothyroidism Epilepsy Asthma Graves disease Surgical History Status post laparoscopic cholecystectomy S/P laparoscopic cholecystectomy (02/27/24) History of thumb surgery History of renal stent (~2002) History of arthroscopy of left knee History of tubal ligation Family History Father No problems noted. Mother No problems noted. Social History Household Members: None Housing: Apartment Alcohol intake: current Alcohol intake frequency: holidays/special occasions only Patient Tobacco Use Status: Never used Tobacco e-Cigarette/Vaping Use: Never Used Second Hand Smoke Exposure: No Substance Use Type: Marijuana service: No Current occupational status: disabled Current occupation: [employer]ering at [employer]- Right Handed Cognitive needs: No Hearing needs: No Vision needs: No Review of Systems Const Denies body aches, Denies fatigue, Denies fever(s), Denies frequent falls, Denies headache(s) and Denies weakness Eyes Reports no additional complaints and Denies change in vision ENT Denies dysphagia, Denies dizziness, Denies facial pain, Denies headache(s), Denies nasal congestion and Denies odynophagia Card Denies chest pain, Denies syncope, Denies irregular heart rhythm, Denies leg edema, Denies lightheadedness and Denies dyspnea Resp Denies cough and Denies dyspnea GI Denies abdominal pain, Denies constipation, Denies dysphagia, Denies dyspepsia, Denies diarrhea, Denies nausea, Denies odynophagia and Denies vomiting Denies urinary frequency, Denies dysuria, Denies urinary hesitancy and Denies urinary urgency Musc Denies back pain and Denies myalgias Skin/Breast Reports system reviewed and no additional complaints, except as documented Neuro Denies dizziness, Denies syncope, Denies frequent falls, Denies headache(s) and Denies weakness Psych Reports no additional complaints Endo Denies fatigue Physical Exam Const Other: General Appearance:? normal, in no acute distress. Skin:? no rashes, no significant birthmarks. Heart:? S1, S2 normal, no murmurs. Lungs:? clear anteriorly and posteriorly. Extremities:? no edema. Psych:? alert, oriented, cognitive function intact, cooperative with exam. Neuro Other: Mental Status:?Normal attention, orientation, memory and affect.? Cranial Nerves:?Pupils are equal, round and reactive to light. External occular muscles are intact. Visual moran are full. Face is symmetrical. Facial sensations are normal. Tongue is midline. Palate elevates symmetrically. Shoulder shrugging is normal. Hearing to bedside conversation is normal. Sensory Exam:?....? Coordination:?No ataxia,?no titubation.? Gait Exam: Within normal limits. Cerebellar Signs:?[id number]-[id number] is okay. Extrapyramidal System:?No tremor, rigidity with normal facial expressions.? Pronator Drift:?Not present.? Involuntary Movements:?No tremors seen.? Speech:?Normal.? Results Reviewed Results Reviewed: MRI brain [facility] at [facility] [place] in 2020: minimal MVD Routine EEG in off in August 2020: WNL EEG at off in 2019: WNL. Assessment & Plan Assessment & Plan (1) Temporal lobe epilepsy: Code(s): G40.109 - Localization-related (focal) (partial) symptomatic epilepsy and epileptic syndromes with simple partial seizures, not intractable, without status epilepticus Category: Medical Plan: Discussed the likelihood of recent event being form of seizure, considering its presentation, although it differs somewhat from previous episodes. I recommended EEG, which she was hesitant to do as she reports the test caused twitching for at least 30 minutes following photic stimulation in the past. She was agreeable to testing if this part of test was omitted. EEG without photic stimulation ordered. MRI brain ordered. Labs ordered - levetiracetam level and electrolytes. Avoid use of marijuana. Continue levetiracetam 500mg 1 tablet daily. Continue levetiracetam 1000mg 3 tablets daily. Continue oxcarbazepine 300mg 1 tablet twice a day. (2) Cervical spondylarthritis: Code(s): M47.812 - Spondylosis without myelopathy or radiculopathy, cervical region Category: Medical Qualifiers: Spinal osteoarthritis complication: unspecified spinal osteoarthritis Qualified Code(s): M47.812 - Spondylosis without myelopathy or radiculopathy, cervical region Plan . Orders: Orders Electrolytes Today G40.109 - Localization-related (focal) (partial) symptomatic epilepsy and epileptic syndromes with simple partial seizures, not intractable, without status epilepticus Levetiracetam Keppra Today G40.109 - Localization-related (focal) (partial) symptomatic epilepsy and epileptic syndromes with simple partial seizures, not intractable, without status epilepticus EEG electroencephalogram Today G40.109 - Localization-related (focal) (partial) symptomatic epilepsy and epileptic syndromes with simple partial seizures, not intractable, without status epilepticus MR head/brain wo con Today G40.109 - Localization-related (focal) (partial) symptomatic epilepsy and epileptic syndromes with simple partial seizures, not intractable, without status epilepticus Coding Level of Care Code Est Pt Level 4 (24945) Diagnoses Temporal lobe epilepsy G40.109 Osteoarthritis of cervical spine, unspecified spinal osteoarthritis complication status M47.812 Spinal osteoarthritis complication: unspecified spinal osteoarthritis
== END 2024-10-29 15:26 | disposition home or self-care (01) ==
LOC: HO.HSM 14:26
PROVIDERS: Visit Provider Registered Nurse
DX: G40.109 Localization-related (focal) (partial) symptomatic epilepsy and epileptic syndromes with simple partial seizures, not intractable, without status epilepticus (principal); M47.812 Spondylosis without myelopathy or radiculopathy, cervical region
CPT/HCPCS: 99214

== ENCOUNTER → 2024-10-29 14:25 | Outpatient (BNVA) | payer MEDICARE, MEDICAID, SELFPAY | PROVIDERS: Visit Provider Registered Nurse | DX: G40.109 Localization-related (focal) (partial) symptomatic epilepsy and epileptic syndromes with simple partial seizures, not intractable, without status epilepticus (principal); M47.812 Spondylosis without myelopathy or radiculopathy, cervical region | CPT/HCPCS: 99212 ==

== ENCOUNTER 2024-11-03 06:59 | Outpatient (REF) | payer MEDICARE, MEDICAID, SELFPAY ==
[2024-11-03 08:42] LABS: Anion Gap 12 (12-20); Carbon Dioxide 28 mmol/L (22-29); Chloride 105 mmol/L (96-108); Potassium 4.5 mmol/L (3.3-5.1); Sodium 140 mmol/L (135-145)
[2024-11-06 09:28] LABS: Levetiracetam Keppra 56.6 mcg/mL (6.0-46.0)
== END 2024-11-03 07:00 | disposition home or self-care (01) ==
LOC: HO.LAB 06:59
PROVIDERS: Visit Provider Registered Nurse
DX: G40.109 Localization-related (focal) (partial) symptomatic epilepsy and epileptic syndromes with simple partial seizures, not intractable, without status epilepticus (principal)
CPT/HCPCS: 36415; 80051; 80177

== ENCOUNTER 2024-11-13 08:06 | Outpatient (REF) | payer MEDICARE, MEDICAID, SELFPAY ==
--- NOTE | 2024-11-13 09:34 | EEG_ITS ---
Reason for Exam: Localization - related (focal) (partial) symptomatic epilepsy and epileptic syndrome G40.109 Roomed Performed:?402 History: epilepsy - Patient reports episode on 09/2024 of feeling numbness from chest upward, she then felt herself lean to the side where she stayed for about 10 minutes. Patient remain awake and alert during the episode. Patient felt emotionally drained afterwards. This episode was different then her normal seizure, which last one was 04/2024. Medication: acetaminophen, atorvastatin, celecoxib, cholestyramine, docusate sodium, levetiracetam, levothyroxine, loratadine, montelukast, oxcarbazepine, pantoprazole, Symbicort, albuterol Technical description Photic stimulation: omitted Hyperventilation:?omitted Behavioral state: pleasant, cooperative State of Consciousness: awake and drowsy Skull defect: none Sedation: none Handedness: right Duration of study:?31 min 50 sec Description: This is a 16 channel EEG with an EKG lead. Patient is reported awake and drowsy during the tracing. Background EEG rhythm during wakefulness is 10-12 hertz 5-100 microvolt posteriorly and lower amplitude fast anteriorly. Rare right temporal area theta range slowing and sometime sharp waves were noted. Photic stimulation and hyperventilation were not performed. Cardiac lead does not reveal any significant abnormality. Impression: Mildly abnormal EEG suggestive of right temporal irritability. MTDD
== END 2024-11-13 08:07 | disposition home or self-care (01) ==
LOC: HO.NEURO 08:06
PROVIDERS: Visit Provider Psychiatry & Neurology Neurology
DX: G40.109 Localization-related (focal) (partial) symptomatic epilepsy and epileptic syndromes with simple partial seizures, not intractable, without status epilepticus (principal)
CPT/HCPCS: 95816

== ENCOUNTER → 2024-11-13 09:34 | Outpatient (BNV) | payer MEDICARE, MEDICAID, SELFPAY | PROVIDERS: Visit Provider Psychiatry & Neurology Neurology | DX: G40.109 Localization-related (focal) (partial) symptomatic epilepsy and epileptic syndromes with simple partial seizures, not intractable, without status epilepticus (principal) | CPT/HCPCS: 95816 ==

== ENCOUNTER 2024-12-22 03:36 | Inpatient (IN) | payer MEDICARE, MEDICAID, SELFPAY ==
[2024-12-22] VITALS (10 sets, daily range): BP systolic 119–160; BP diastolic 56–98; PULSE 64–89; RESP 16–20; TEMP 36.3–37.3; O2SAT 94–98; BMI 25.1; BMI 25.9
--- NOTE | ~2024-12-22 | FL_ITS ---
EXAMINATION: FL GUIDANCE ONLY HISTORY: cysto uretero with stent, left COMPARISON: Correlation is made with a CT of the abdomen and pelvis with contrast dated 12/22/2024. TECHNIQUE: Fluoroscopy time: 19 seconds. Cumulative Dose: 3.50 mGy. DAP: 719.90 mGycm2 Images: 2. FINDINGS: Fluoroscopic spot films of the left abdomen demonstrate a nephroureteral stent in place. FL/FL guidance in OR IMPRESSION: Fluoroscopy during procedure. Please see procedure report for additional information. Electronically signed by: Vivek Sanchez MD 12/24/2024 07:45 AM EST
--- NOTE | ~2024-12-22 | CT_ITS ---
CLINICAL HISTORY: LLQ pain tender CT abdomen and pelvis with contrast Comparison: CT - CT ABDOMEN PELVIS W IV CON - 12/22/24 04:47 EST Findings: The lung bases are clear. There is a round 7 mm calculus within the mid left ureter, with moderate left hydroureteronephrosis. Additional smaller calculi are present within the left renal collecting system measuring up to 3 mm. The gallbladder is absent. The liver, spleen, adrenal glands and pancreas are unremarkable. Moderately large hiatal hernia. No bowel obstruction or free air. Mild fecal retention. Diverticulosis without evidence of diverticulitis. No acute osseous findings. Impression: There is a 7 mm calculus within the mid left ureter with moderate left hydroureteronephrosis. Additional incidental findings. This document has been electronically signed by: Martin Manriquez MD on 12/22/2024 06:23:54
--- NOTE | 2024-12-22 03:51 | ED_ITS ---
HPI - Abdominal Pain General Chief Complaint: Abdominal Pain Stated Complaint: Ab pain sharp l upper Quadrant woken up by pain Time Seen by Provider: 12/22/24 03:44 History of Present Illness ED Provider: Baldo Ledezma MD HPI narrative: [age] history of cholecystectomy anxiety, diverticulitis with left-sided upper mid some left lower quadrant. Nausea minimal nonbloody nonbilious vomiting. No GI bleeding dysuria she does report a remote history of kidney stones has not had 1 in many years Related Data Home Medications ?Medication ?Instructions ?Recorded ?Confirmed levetiracetam 1,000 mg tablet 3,000 mg PO DAILY 12/22/24 levetiracetam 500 mg tablet 250 mg PO DAILY 12/22/24 1 02/22/24 naproxen sodium 220 mg tablet 220 mg PO BID PRN Pain 1 02/22/24 12/22/24 Previous Rx's ?Medication ?Instructions ?Recorded Ventolin HFA 90 mcg/actuation 2 puff inhalation Q4H [place] N 04/04/24 aerosol inhaler (albuterol sulfate) shortness of breat h or wheezing #18 grams Symbicort 160 mcg-4.5 2 puff PO BID #10.2 grams mcg/actuation HFA aerosol inhaler (budesonide-formoterol) montelukast 10 mg tablet 10 mg PO DAILY #30 tabs 09/06 09/29 oxcarbazepine 300 mg tablet 300 mg PO BID 90 days #180 tabs 10/03/24 levothyroxine 137 mcg tablet 137 mcg PO DAILY #30 tabs 10/10/24 atorvastatin 40 mg tablet 40 mg PO DAILY #90 tabs 10/07 10/30 escitalopram oxalate 20 mg tablet 20 mg PO DAILY anxie ty #30 tabs 12/16/24 hydroxyzine HCl 25 mg tablet 25 mg PO BID PRN anxiety #30 tabs 12/16/24 acetaminophen 325 mg tablet 975 mg (3 x 325 mg) PO Q6H PRN 12/23/24 Pain, Mild 1-3,Fever,Headache #14 tabs levofloxacin 250 mg tablet 250 mg PO Q24H #5 tabs 12/06 09/29 Allergies Allergy/AdvReac Type Severity Reaction Status Date / Time tetracycline Allergy Intermediate vomiting Verified 12/22/24 04:05 penicillin V Allergy Unknown Unknown Verified 12/22/24 04:05 aspirin (ASA) AdvReac Mild dermatitis Verified 12/22/24 04:05 [facility] Past Medical History Medical History Cervical spondylarthritis Temporal lobe epilepsy Trigger finger of right thumb Trigger finger of left thumb Hypothyroidism Epilepsy Asthma Graves disease Surgical History Status post laparoscopic cholecystectomy S/P laparoscopic cholecystectomy (02/27/24) History of thumb surgery History of renal stent (~2002) History of arthroscopy of left knee History of tubal ligation Family History Family History Father No problems noted. Mother No problems noted. 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 ENT: Moist mucosa, no pallor. ? Neck: Supple. Skin: ?No observable rash or bruising on exposed or examined skin Respiratory: Breathing comfortably, No distress.Clear to auscultation bilaterally, symmetric chest expansion, No wheeze, rales, ronchi. Cardiovascular: Regular rate and rhythm. No murmurs or rub. Well perfused periphery, warm extremities. No edema. ? Abdominal: Mild tenderness left upper and left mid abdomen. Soft, no objective distension. No palpable masses or obvious organomegaly. ?No guarding, no rebound tenderness or other peritoneal findings. Neuro: Alert. Gross movement of all extremities intact. ? Psych: Calm. Cooperative. MSK: No grossly visible deformity. Vital signs: See flowsheet Vital Signs: Vital Signs - 24 hr 12/22/24 03:49 12/22/24 06:00 12/22/24 06:05 Temperature 98.0 F 98.0 F Pulse Rate 64 65 Respiratory Rate 18 20 18 Blood Pressure 137/66 147/71 H Pulse Oximetry 98 98 Oxygen Delivery Method Room Air Room Air BMI result Body Mass Index 25.1 Procedures Procedure Narrative Procedure Narrative: Ultrasound Guided Peripheral Intravenous Catheter Placement Indication: Intravenous Access Location: Right ??Vascular Location of Catheter Tip: Basilic Provider: Self I was approached by nursing staff and informed that multiple unsuccessful attempts had been made to establish IV access in the patient. The patients arm was surveyed with the ultrasound for verification of vessel collapsibility, patency, depth and caliber, as well as identification of nearby structures. The target area was prepped with chlorhexidine. A tourniquet was placed proximally on the extremity. Under real-time ultrasound guidance, an 20 G 2.25 inch AccuCath nontunneled catheter ? was advanced into the target vein. Dark blood was visualized in the flash chamber. The catheter was easily advanced into the vein. The catheter was evacuated of air and flushed with sterile saline. The catheter was secured in place with a tegaderm. The patient tolerated the procedure well and there were no complications. Estimated Blood Loss: 1mL Total Time for Procedure: 5min Images Stored CPT: 88386; 77992 __ EMERGENCY ULTRASOUND INTERPRETATION-Limited Retroperitoneal (Renal) [This study was ordered, performed, and interpreted by myself. The study reveals: Impression: Mild left hydronephrosis [Indication: FLANK PAIN Bladder: ANECHOIC URINE Left Kidney: Mild hydronephrosis Performed by: Baldo Ledezma MD Images were stored CPT: 12062] Medical Decision Making Medical Decision Making MDM Narrative: Medical Decision Makin-year-old female with left-sided abdominal pain remote history of kidney stones, fairly recent cholecystectomy. Nausea nonbloody nonbilious vomiting Mild hydro on point of care ultrasound see above. Ultrasound-guided peripheral IV see procedure note and ultrasound note above. Moderate to severe pain difficult to control in the ED with multimodal analgesia including NSAIDs and opioids. Flomax and IV fluids. No fever minimal leukocytosis doubt infected kidney stone but this was considered. Preliminary Favored Differential Diagnosis: Kidney stone diverticulitis UTI pyelonephritis dehydration electrolyte derangement pancreatitis enteritis colitis among additional considered etiologies Testing Interpreted Independently: ?See below for details Radiology or Lab testing Results Reviewed: ?See below for details Consults: ?See below for details Independent Historians/External Chart Reviews: ?See below for details Social Determinants of Health Impacting MDM/Planning: ?See below for details Lab Data 12/22/24 04:26 12/23/24 05:07 Labs: Lab Results 12/22/24 12/22/24 Range/Units 04:26 05:37 WBC 11.7 H (4.8-10.8) X10*3/uL RBC 4.26 (4.20-5.50) X10*6/uL Hgb 12.9 (12.0-16.0) g/dl Hct 39.1 (37.0-47.0) % MCV 91.8 (80.0-98.0) fL MCH 30.3 (27.0-33.0) pg MCHC 33.0 (31.0-35.0) g/dl RDW 13.3 (11.0-16.0) % Plt Count 301 D (160-400) X10*3/uL MPV 8.9 L (9.4-12.3) fL Immature Gran % (Auto) 0.3 (0.0-0.4) % Neut % (Auto) 83.0 H (45-73) % Lymph % (Auto) 10.5 L (20-40) % [place] % (Auto) 5.0 (2-11) % Eos % (Auto) 0.8 (0-4) % Baso % (Auto) 0.4 (0-2) % Lymph # (Auto) 1.2 (1.2-4.9) X10*3/uL [place] # (Auto) 0.6 (0.1-1.2) X10*3/uL Eos # (Auto) 0.1 (0.0-0.4) X10*3/uL Baso # (Auto) 0.1 (0.0-0.2) X10*3/uL Abs Immat Gran (auto) 0.04 H (0.00-0.03) X10*3/uL Absolute Neuts (auto) 9.7 H (2.0-8.3) x10*3/uL Absolute Nucleated RBC 0.000 (0.0-0.012) X10*3/uL Nucleated RBC % (auto) 0.0 (0.0-0.2) /100WBC Sodium 139 (135-145) mmol/L Potassium 3.7 (3.3-5.1) mmol/L Chloride 103 (96-108) mmol/L Carbon Dioxide 25 (22-29) mmol/L Anion Gap 15 (12-20) BUN 16 (9-16) mg/dL Creatinine 0.74 (0.5-1.4) mg/dL Estim Creat Clear Calc 63.1 Estimated GFR > 60 Random Glucose 127 H (60-115) mg/dL Calcium 9.5 D (8.4-10.2) mg/dL Total Bilirubin 0.2 (0.0-1.0) mg/dL AST 22 (5-31) U/L ALT 14 (0-31) U/L Alkaline Phosphatase 117 (39-117) U/L Total Protein 7.0 (6.5-8.0) g/dL Albumin 4.5 (3.5-5.0) g/dL Lipase 36 (8-78) U/L Urine Color Yellow Urine Appearance Cloudy Urine pH 7.0 (5.0-9.0) Ur Specific [place] >= 1.030 H (1.005-1.025) Urine Protein Trace (Neg-Trace) mg/dL Urine Glucose (UA) Negative (Negative) mg/dL Urine Ketones Negative (Negative) mg/dL Urine Blood Large (3+) H (Negative) Urine Nitrite Negative (Negative) Ur Leukocyte Esterase Small (1+) H (Negative) Urine RBC >20 H (0-2) /HPF Urine WBC 6-10 H (0-5) /HPF Ur Squamous Epith Cells 11-20 (0-2) /HPF Urine Bacteria Trace (None Seen) Hyaline Casts 0-2 (0-2) /LPF Medications Administered Generic Name Dose Route Start Last Admin Trade Name Freq PRN Reason Stop Dose Admin Acetaminophen 975 mg 12/22/24 06:34 12/22/24 22:04 Acetaminophen 325 Mg Tablet PO 975 mg Q6H PRN Administration Pain, Mild 1-3,fever,headache Atorvastatin Calcium 40 mg 12/23/24 09:00 12/23/24 08:25 Atorvastatin Calcium 40 Mg Tablet PO 40 mg DAILY RELL Administration Escitalopram Oxalate 20 mg 12/22/24 10:00 12/23/24 08:25 Escitalopram Oxalate 20 Mg Tablet PO 20 mg DAILY RELL Administration Fluticasone/Vilanterol 1 puff 12/23/24 10:00 12/23/24 07:46 Fluticasone/Vilanterol 200/25 Blst.W.Dev INHALE 1 puff RDAILY RELL Administration Lactated Ringer's 1,000 mls @ 100 mls/hr 12/22/24 10:15 12/23/24 01:32 Lr IVCONT 100 mls/hr .Q10H RELL Administration Levetiracetam 1,000 mg 12/23/24 09:00 12/23/24 08:25 Levetiracetam 1,000 Mg Tablet PO 1,000 mg DAILY RELL Administration Levetiracetam 2,000 mg 12/22/24 21:00 12/22/24 20:52 Levetiracetam 1,000 Mg Tablet PO 2,000 mg BEDTIME RELL Administration Levetiracetam 250 mg 12/22/24 21:00 12/22/24 20:53 Levetiracetam 250 Mg Tablet PO 250 mg BEDTIME RELL Administration Levofloxacin 250 mg 12/23/24 11:00 12/23/24 10:37 Levofloxacin 250 Mg Tablet PO 250 mg Q24H RELL Administration Levothyroxine Sodium 112 mcg/ 137 mcg 12/22/24 06:50 12/23/24 05:30 Levothyroxine Sodium 25 mcg PO 137 mcg DAILY@0600 RELL Administration Montelukast Sodium 10 mg 12/22/24 10:00 12/23/24 08:25 Montelukast Sodium 10 Mg Tablet PO 10 mg DAILY RELL Administration Oxcarbazepine 300 mg 12/22/24 09:00 12/23/24 08:25 Oxcarbazepine 300 Mg Tablet PO 300 mg BID RELL Administration Sodium Chloride 3 ml 12/22/24 08:00 12/23/24 07:30 0.9 % Sodium Chloride Flush 3 Ml Syringe IVFLUSH Not Given QSHIFT RELL Discontinued Medications Generic Name Dose Route Start Last Admin Trade Name Freq PRN Reason Stop Dose Admin Hydromorphone HCl 0.5 mg 12/22/24 06:00 12/22/24 06:05 Hydromorphone Hcl 0.5 Mg/0.5 Ml Syringe IVPUSH 12/22/24 06:01 0.5 mg ONCE ONE Administration Protocol Lactated Ringer's 1,000 mls @ 100 mls/hr 12/22/24 06:45 12/22/24 10:39 Lr IVCONT Not Given .Q10H RELL Levofloxacin 500 mg in 100 mls @ 100 mls/hr 12/22/24 08:38 12/22/24 19:43 Levaquin IV 12/22/24 09:37 Not Given PREOP ONE Iohexol 100 ml 12/22/24 05:05 12/22/24 05:11 Iohexol 350 Mg/Ml 100 Ml Infus..Btl IV 12/22/24 05:06 85 ml ONCE ONE Administration Ketorolac Tromethamine 15 mg 12/22/24 03:48 12/22/24 04:24 Ketorolac Tromethamine 15 Mg/Ml Vial IVPUSH 12/22/24 03:49 15 mg ONCE ONE Administration Levetiracetam 1,000 mg 12/22/24 09:00 12/22/24 08:45 Levetiracetam 1,000 Mg Tablet PO 12/22/24 09:01 1,000 mg ONCE ONE Administration Levetiracetam 3,000 mg 12/22/24 10:00 12/22/24 10:39 Levetiracetam 1,000 Mg Tablet PO Not Given DAILY [facility] Levetiracetam 250 mg 12/22/24 10:00 12/22/24 10:39 Levetiracetam 250 Mg Tablet PO Not Given DAILY [facility] Levetiracetam 2,000 mg 12/22/24 10:15 12/22/24 10:40 Levetiracetam 1,000 Mg Tablet PO 12/22/24 10:16 Not Given ONCE ONE Ondansetron HCl 4 mg 12/22/24 03:48 12/22/24 04:24 Ondansetron Hcl 4 Mg/2 Ml Vial IVPUSH 12/22/24 03:49 4 mg ONCE ONE Administration Phenazopyridine HCl 100 mg 12/22/24 18:31 12/22/24 20:51 Phenazopyridine Hcl 100 Mg Tablet PO 12/22/24 18:32 100 mg ONCE ONE Administration Tamsulosin HCl 0.4 mg 12/22/24 05:13 12/22/24 05:32 Tamsulosin Hcl 0.4 Mg Capsule PO 12/22/24 05:14 0.4 mg ONCE ONE Administration Discharge Plan Discharge Clinical Impression: Renal calculus, left, Hydroureteronephrosis Patient Disposition: Admitted As Inpatient Interventions: Admission Worksheet (ED) Last Done: 12/22/24 08:53 Discharge Date/Time: 12/22/24 09:39
[2024-12-22 04:30] LABS: MANUAL DIFF FLAG NO
[2024-12-22 04:31] LABS: Hematocrit 39.1 % (37.0-47.0); Hemoglobin 12.9 g/dl (12.0-16.0); Imm Gran Abs Auto 0.04 X10*3/uL (0.00-0.03); Imm Gran Pct Auto 0.3 % (0.0-0.4); Lymphocytes Absolute Auto 1.2 X10*3/uL (1.2-4.9); Mean Corpuscular HGB Conc 33.0 g/dl (31.0-35.0); Mean Corpuscular Hemoglobin 30.3 pg (27.0-33.0); Mean Corpuscular Volume 91.8 fL (80.0-98.0); NRBC Abs Auto 0.000 X10*3/uL (0.0-0.012); NRBC Pct Auto 0.0 /100WBC (0.0-0.2); Platelet Count 301 X10*3/uL (160-400); Red Blood Count 4.26 X10*6/uL (4.20-5.50); White Blood Count 11.7 X10*3/uL (4.8-10.8)
[2024-12-22 04:44] LABS: Alanine Aminotransferase 14 U/L (0-31); Albumin Level 4.5 g/dL (3.5-5.0); Alkaline Phosphatase 117 U/L (39-117); Anion Gap 15 (12-20); Aspartate Amino Transferase 22 U/L (5-31); Blood Urea Nitrogen 16 mg/dL (9-16); Calcium 9.5 mg/dL (8.4-10.2); Carbon Dioxide 25 mmol/L (22-29); Chloride 103 mmol/L (96-108); Creatinine Clr Calc Pharmacy 63.1; Estimated Glomerular Filt Rate > 60; Lipase 36 U/L (8-78); Potassium 3.7 mmol/L (3.3-5.1); Sodium 139 mmol/L (135-145); Total Protein 7.0 g/dL (6.5-8.0)
[2024-12-22] MEDS: iohexoL 350 MG/ML 100 ML INFUS..BTL IV (05:11)
[2024-12-22 05:41] LABS: Appearance Urine Cloudy; Glucose Urine UA Negative (Negative); PH 7.0 (5.0-9.0); Specific Gravity - Urine >= 1.030 (1.005-1.025); UMIC TRIGGER UACC YES
[2024-12-22 06:10] LABS: UACC Culture Trigger YES
--- NOTE | 2024-12-22 06:47 | PM.IMHP ---
History of Present Illness Date of Service: 12/22/24 Attending physician on admission: Karen Richards Chief Complaint: LLQ pain Patient is a 69-year-old female with a past medical history significant for nephrolithiasis, seizure disorder, Graves disease and anxiety, who presented to the ED due to left lower quadrant pain with nausea and vomiting. The patient reported the pain was about a 9/10, currently better controlled. No urinary symptoms including frequency, urgency or dysuria. She reports this feels similar to previous kidney stones. She has no additional complaints including chest pain, shortness of breath, URI sx. Review of Systems Constitutional: Constitutional: Denies body ache(s), Denies chills, Denies fatigue, Denies fever(s) and Denies headache(s) Eyes: Eyes: Denies change in vision ENT: Denies headache(s), Denies nasal congestion and Denies sore throat Cardiovascular: Cardiovascular: Denies chest pain, Denies rapid heart rate, Denies leg edema, Denies lightheadedness and Denies dyspnea Respiratory: Respiratory: Denies chest congestion, Denies cough, Denies dyspnea and Denies wheezing Gastrointestinal: Gastrointestinal: Reports as per HPI Genitourinary: Genitourinary: Denies difficulty voiding, Denies dysuria and Denies urinary urgency Musculoskeletal: Musculoskeletal: Denies myalgias Integumentary/Breasts: Skin/Breast: Denies rash Neurologic: Denies confusion and Denies headache(s) Psychiatric: Psychiatric: Denies confusion Endocrine: Endocrine: Denies fatigue Hematologic/Lymphatic: Hematologic/Lymphatic: Denies easy bleeding Allergic/Immunologic: Allergic/Immunologic: Denies wheezing [facility] [place] Medical History Cervical spondylarthritis Temporal lobe epilepsy Trigger finger of right thumb Trigger finger of left thumb Hypothyroidism Epilepsy Asthma Graves disease Functional capacity: independent ambulation Family History Father No problems noted. Mother No problems noted. Surgical History Status post laparoscopic cholecystectomy S/P laparoscopic cholecystectomy (02/27/24) History of thumb surgery History of renal stent (~2002) History of arthroscopy of left knee History of tubal ligation Social History Household Members: None Housing: Apartment Alcohol intake: current Alcohol intake frequency: holidays/special occasions only Patient Tobacco Use Status: Never used Tobacco Smoked in Last 30 Days: No e-Cigarette/Vaping Use: Never Used Second Hand Smoke Exposure: No Use of substances other than those prescribed or required for medical reasons: Yes Substance Use Type: Marijuana Substance Use Frequency: Daily Advance Directives: No Advance Directives Information Provided: No Do you have a plan to hurt others: No Plan service: No Current occupational status: disabled 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 Cognitive needs: No Hearing needs: No Vision needs: No Meds Allergies Allergy/AdvReac Type Severity Reaction Status Date / Time tetracycline Allergy Intermediate vomiting Verified 12/22/24 04:05 penicillin V Allergy Unknown Unknown Verified 12/22/24 04:05 aspirin (ASA) AdvReac Mild dermatitis Verified 12/22/24 04:05 Active Medications: Current Medications Acetaminophen (Acetaminophen 325 Mg Tablet) 975 mg PO Q6H PRN PRN Reason: Pain, Mild 1-3,fever,headache Albuterol Sulfate (Albuterol Sulfate (0.083%) 2.5 Mg/3 Ml Vial.Neb) 2.5 mg INHALE Q3H PRN PRN Reason: wheezing Stop: 12/22/24 12:46 Calcium Carbonate (Calcium Carbonate 750 Mg Tab.Chew) 750 mg PO Q4H PRN PRN Reason: Heartburn Hydromorphone HCl (Hydromorphone Hcl 1 Mg/Ml Syringe) 0.5 mg IVPUSH Q4H PRN; Protocol PRN Reason: Pain, Severe (Pain Scale 7-10) Lactated Ringer's (Lr) 1,000 mls @ 100 mls/hr IVCONT .Q10H RELL Levetiracetam (Levetiracetam 1,000 Mg Tablet) 1,000 mg PO ONCE ONE Stop: 12/22/24 09:01 Magnesium Hydroxide (Milk Of Magnesia 30 Ml Oral.Susp) 30 ml PO DAILY PRN PRN Reason: Constipation Melatonin (Melatonin 3 Mg Tablet) 6 mg PO BEDTIME PRN PRN Reason: Insomnia Ondansetron HCl (Ondansetron Hcl 4 Mg/2 Ml Vial) 4 mg IVPUSH Q8H PRN PRN Reason: Nausea and Vomiting Oxcarbazepine (Oxcarbazepine 300 Mg Tablet) 300 mg PO BID RELL Sodium Chloride (0.9 % Sodium Chloride Flush 3 Ml Syringe) 3 ml IVFLUSH QSHIFT RELL Physical Exam Vital Signs and Narrative: Vital Signs: Last Vital Signs Temp 98.0 F 12/22/24 06:00 Pulse 65 12/22/24 06:00 Resp 18 12/22/24 06:05 BP 147/71 H 12/22/24 06:00 Pulse Ox 98 12/22/24 06:00 O2 Del Method Room Air 12/22/24 06:00 BMI result Body Mass Index 25.1 General: AOx3, no acute distress Resp: CTA bilaterally CVS: S1, S2, RRR GI: +BS, +LLQ pain, no distention Skin: Warm, dry Neuro: Cranial nerves II-XII grossly intact bilaterally. Motor grossly intact bilaterally Extremities: No pitting edema Psych: Appropriate affect Const: General: No confusion Orientation/consciousness: No confusion Neuro: General: No confusion Results Labs 12/22/24 04:26 12/22/24 04:26 Labs: Laboratory Results - last 24 hr 12/22/24 12/22/24 04:26 05:37 MCV 91.8 MCH 30.3 MCHC 33.0 RDW 13.3 Plt Count 301 D MPV 8.9 L Immature Gran % (Auto) 0.3 Neut % (Auto) 83.0 H Lymph % (Auto) 10.5 L [place] % (Auto) 5.0 Eos % (Auto) 0.8 Baso % (Auto) 0.4 Lymph # (Auto) 1.2 [place] # (Auto) 0.6 Eos # (Auto) 0.1 Baso # (Auto) 0.1 Abs Immat Gran (auto) 0.04 H Absolute Neuts (auto) 9.7 H Absolute Nucleated RBC 0.000 Nucleated RBC % (auto) 0.0 Anion Gap 15 Estim Creat Clear Calc 63.1 Estimated GFR > 60 Random Glucose 127 H Calcium 9.5 D Total Bilirubin 0.2 AST 22 ALT 14 Alkaline Phosphatase 117 Total Protein 7.0 Albumin 4.5 Lipase 36 Urine Color Yellow Urine Appearance Cloudy Urine pH 7.0 Ur Specific [place] >= 1.030 H Urine Protein Trace Urine Glucose (UA) Negative Urine Ketones Negative Urine Blood Large (3+) H Urine Nitrite Negative Ur Leukocyte Esterase Small (1+) H Assessment and Plan (1) Ureteral stone: Status: Acute (2) Hydroureteronephrosis: Status: Acute Plan Patient is a 69-year-old female with a past medical history significant for nephrolithiasis, seizure disorder, Graves disease and anxiety, who presented to the ED due to left lower quadrant pain with nausea and vomiting. L ureteral stone with hydroureteronephrosis - leukocytosis likely reactive - urology consult - pain management - IVF - NPO pending possible procedure - monitor CBC and BMP seizure disorder - keppra and oxcarbazepine, last taken last night - med rec pending, 1x dose keppra placed per home med list (will need to be verified), oxcarbazepine BID Graves disease - levothyroxine anxiety - lexapro HLD - statin moderate persistent asthma, no acute exacerbation - continue home inhalers med rec pending full code VTE prophy: SCDs Pt with L ureteral stone and hydroureteronephrosis, requiring admission for possible urologic procedure, pain management. Quality Stroke Does the patient have a stroke diagnosis?: No VTE Prior VTE?: No VTE Risk Level:: Medical - moderate - high VTE Device Contraindication: N/A - Device Ordered VTE Drug Contraindication: Treatment Not Indicated
--- NOTE | 2024-12-22 07:42 | PC.NURSE ---
Patient sleeping in bed at this time, NPO, awaiting admission to hosptial
[2024-12-22] MEDS: Levothyroxine Sodium 112 MCG, Levothyroxine Sodium 25 MCG 137 MCG PO (08:45)
--- NOTE | 2024-12-22 09:11 | PHA.MEDREC ---
Addendum entered by Yuni Miller [facility] 12/22/24 10:34: pt told nurse that she takes 1000mg of keppra in the morning and 2250mg at bedtime. Original Note: Pharmacy Consult ? Medication Reconciliation Pharmacy has completed the medication reconciliation. Patient knew medications. Now takes 3250 mg of levetiracetam daily.
[2024-12-22] MEDS: Lactated Ringers 1,000 ML 100 ML IVCONT (10:16)
[2024-12-22] MEDS: 0.9 % Sodium Chloride Flush 3 ML SYRINGE IVFLUSH (10:25)
--- NOTE | 2024-12-22 11:59 | MHC.CM.PN ---
pt livs alone had no previous services dc plan home n/s
--- NOTE | 2024-12-22 12:22 | HO.ANESPROP2 ---
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 Reported marijuana use at her 10/2024 neuro visit. s/p cholecystectomy with GA, ETT 7 02/2024 PMFSH Active Problems Active Problems: All Active Problems Hydroureteronephrosis (Acute) Renal calculus, left (Acute) Hydroureteronephrosis (Acute) Ureteral stone (Acute) Severe anxiety (Acute) Numbness (Acute) Annual physical exam (Acute) Arthritis of left knee (Acute) Cervical spondylarthritis (Acute) Temporal lobe epilepsy (Acute) Tear of medial meniscus of left knee (Acute) S/P cholecystectomy (Acute) Hypercholesterolemia (Acute) Screening for diabetes mellitus (Acute) Bilateral knee pain (Acute) Epilepsy (Acute) Adult general medical exam (Acute) Hypothyroidism (Acute) Environmental allergies (Acute) Moderate persistent asthma (Acute) Past Medical History Medical History Cervical spondylarthritis Temporal lobe epilepsy Trigger finger of right thumb Trigger finger of left thumb Hypothyroidism Epilepsy Asthma Graves disease Functional capacity: independent ambulation Family History Family History Father No problems noted. Mother No problems noted. Family history of problems with anesthesia: No Surgical History Surgical History Status post laparoscopic cholecystectomy S/P laparoscopic cholecystectomy (02/27/24) History of thumb surgery History of renal stent (~2002) History of arthroscopy of left knee History of tubal ligation History of Problems with Anesthesia: No Social History Social History Household Members: None Housing: Apartment Do you presently have visiting nurse or other home services: No Alcohol intake: current Alcohol intake frequency: holidays/special occasions only Patient Tobacco Use Status: Never used Tobacco Smoked in Last 30 Days: No e-Cigarette/Vaping Use: Never Used Second Hand Smoke Exposure: No Use of substances other than those prescribed or required for medical reasons: Yes Substance Use Type: Marijuana Substance Use Frequency: Occasionally Have you been hit, kicked, punched, or otherwise hurt by someone within the past year? If so, by whom?: No Do you feel safe in your current relationship?: No Current Relationship Is there a partner from a previous relationship who is making you feel unsafe now?: No Are you made to feel afraid or neglected: No Advance Directives: No Advance Directives Information Provided: No Do you have a plan to hurt others: No Plan Recently lost weight without trying: No How much weight loss: 2-13 pounds Eating poorly because of decreased appetite: No Nutrition screen score: 1 Patient : No : No Poor oral hygiene: No service: No Current occupational status: disabled Current occupation: [employer] at [employer]- Right Handed Cognitive needs: No Hearing needs: No Vision needs: No Meds Allergies Allergy/AdvReac Type Severity Reaction Status Date / Time tetracycline Allergy Intermediate vomiting Verified 12/22/24 04:05 penicillin V Allergy Unknown Unknown Verified 12/22/24 04:05 aspirin (ASA) AdvReac Mild dermatitis Verified 12/22/24 04:05 Active Medications: Current Medications Acetaminophen (Acetaminophen 325 Mg Tablet) 975 mg PO Q6H PRN PRN Reason: Pain, Mild 1-3,fever,headache Albuterol Sulfate (Albuterol Sulfate (0.083%) 2.5 Mg/3 Ml Vial.Neb) 2.5 mg INHALE Q3H PRN PRN Reason: wheezing Stop: 12/22/24 12:46 Albuterol Sulfate (Albuterol Sulfate 90 Mcg 8 Gm Inhaler) 2 puff INHALE Q4H PRN PRN Reason: shortness of breath or wheezing Atorvastatin Calcium (Atorvastatin Calcium 40 Mg Tablet) 40 mg PO DAILY [facility] Calcium Carbonate (Calcium Carbonate 750 Mg Tab.Chew) 750 mg PO Q4H PRN PRN Reason: Heartburn Escitalopram Oxalate (Escitalopram Oxalate 20 Mg Tablet) 20 mg PO DAILY [facility] Last Admin: 12/22/24 10:16 Dose: 20 mg Fluticasone/Vilanterol (Fluticasone/Vilanterol 200/25 Blst.W.Dev) 1 puff INHALE RDAILY [facility] Hydromorphone HCl (Hydromorphone Hcl 1 Mg/Ml Syringe) 0.5 mg IVPUSH Q4H PRN; Protocol PRN Reason: Pain, Severe (Pain Scale 7-10) Hydroxyzine HCl (Hydroxyzine Hcl 25 Mg Tablet) 25 mg PO BID PRN PRN Reason: Anxiety Lactated Ringer's (Lr) 1,000 mls @ 100 mls/hr IVCONT .Q10H [facility] Last Admin: 12/22/24 10:16 Dose: 100 mls/hr Levetiracetam (Levetiracetam 1,000 Mg Tablet) 1,000 mg PO DAILY [facility] Levetiracetam (Levetiracetam 1,000 Mg Tablet) 2,000 mg PO BEDTIME [facility] Levetiracetam (Levetiracetam 250 Mg Tablet) 250 mg PO BEDTIME [facility] Levothyroxine Sodium 112 mcg/ (Levothyroxine Sodium 25 mcg) 137 mcg PO DAILY@0600 [facility] Last Admin: 12/22/24 08:45 Dose: 137 mcg Magnesium Hydroxide (Milk Of Magnesia 30 Ml Oral.Susp) 30 ml PO DAILY PRN PRN Reason: Constipation Melatonin (Melatonin 3 Mg Tablet) 6 mg PO BEDTIME PRN PRN Reason: Insomnia Montelukast Sodium (Montelukast Sodium 10 Mg Tablet) 10 mg PO DAILY [facility] Last Admin: 12/22/24 10:05 Dose: Not Given Ondansetron HCl (Ondansetron Hcl 4 Mg/2 Ml Vial) 4 mg IVPUSH Q8H PRN PRN Reason: Nausea and Vomiting Oxcarbazepine (Oxcarbazepine 300 Mg Tablet) 300 mg PO BID [facility] Last Admin: 12/22/24 08:45 Dose: 300 mg Sodium Chloride (0.9 % Sodium Chloride Flush 3 Ml Syringe) 3 ml IVFLUSH QSHIFT [facility] Last Admin: 12/22/24 10:25 Dose: 3 ml Home Medications ?Medication ?Instructions ?Recorded ?Confirmed ?Last Taken ?Type levetiracetam 1,000 mg tablet 3,000 mg PO DAILY 12/22/24 12/22/24 12/21/24 History levetiracetam 500 mg tablet 250 mg PO DAILY 12/22/24 12/22/24 12/21/24 History naproxen sodium 220 mg tablet 220 mg PO BID PRN Pain 12/22/24 12/22/24 12/21/24 History Exam Height,Weight and Vital Signs: Height 5 ft 2 in Weight 64.2 kg Last Vital Signs Temp 97.8 F 12/22/24 09:43 Pulse 68 12/22/24 09:43 Resp 16 12/22/24 09:43 BP 129/60 12/22/24 09:43 Pulse Ox 95 12/22/24 09:43 O2 Del Method Room Air 12/22/24 09:43 Pertinent Lab Results Pertinent Lab Results: Laboratory Tests 12/22/24 12/22/24 04:26 05:37 WBC 11.7 H RBC 4.26 Hgb 12.9 Hct 39.1 MCV 91.8 MCH 30.3 MCHC 33.0 RDW 13.3 Plt Count 301 D MPV 8.9 L Immature Gran % (Auto) 0.3 Neut % (Auto) 83.0 H Lymph % (Auto) 10.5 L [place] % (Auto) 5.0 Eos % (Auto) 0.8 Baso % (Auto) 0.4 Lymph # (Auto) 1.2 [place] # (Auto) 0.6 Eos # (Auto) 0.1 Baso # (Auto) 0.1 Abs Immat Gran (auto) 0.04 H Absolute Neuts (auto) 9.7 H Absolute Nucleated RBC 0.000 Nucleated RBC % (auto) 0.0 Sodium 139 Potassium 3.7 Chloride 103 Carbon Dioxide 25 Anion Gap 15 BUN 16 Creatinine 0.74 Estim Creat Clear Calc 63.1 Estimated GFR > 60 Random Glucose 127 H Calcium 9.5 D Total Bilirubin 0.2 AST 22 ALT 14 Alkaline Phosphatase 117 Total Protein 7.0 Albumin 4.5 Lipase 36 Urine Color Yellow Urine Appearance Cloudy Urine pH 7.0 Ur Specific [place] >= 1.030 H Urine Protein Trace Urine Glucose (UA) Negative Urine Ketones Negative Urine Blood Large (3+) H Urine Nitrite Negative Ur Leukocyte Esterase Small (1+) H Urine RBC >20 H Urine WBC 6-10 H Ur Squamous Epith Cells 11-20 Urine Bacteria Trace Hyaline Casts 0-2 Assessment and Plan Final Anesthetic Review Family History of Problems with Anesthesia: No History of Problems with Anesthesia: No Documented by User: Angel Biggs MD 12/22/24 17:18 [facility] Past Medical History Medical History Cervical spondylarthritis Temporal lobe epilepsy Trigger finger of right thumb Trigger finger of left thumb Hypothyroidism Epilepsy Asthma Graves disease Family History Family History Father No problems noted. Mother No problems noted. Surgical History Surgical History Status post laparoscopic cholecystectomy S/P laparoscopic cholecystectomy (02/27/24) History of thumb surgery History of renal stent (~2002) History of arthroscopy of left knee History of tubal ligation Social History Social History Household Members: None Housing: Apartment Do you presently have visiting nurse or other home services: No Alcohol intake: current Alcohol intake frequency: holidays/special occasions only Patient Tobacco Use Status: Never used Tobacco Smoked in Last 30 Days: No e-Cigarette/Vaping Use: Never Used Second Hand Smoke Exposure: No Use of substances other than those prescribed or required for medical reasons: Yes Substance Use Type: Marijuana Substance Use Frequency: Occasionally Have you been hit, kicked, punched, or otherwise hurt by someone within the past year? 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 [employer]- Right Handed Cognitive needs: No Hearing needs: No Vision needs: No Meds Allergies Allergy/AdvReac Type Severity Reaction Status Date / Time tetracycline Allergy Intermediate vomiting Verified 12/22/24 04:05 penicillin V Allergy Unknown Unknown Verified 12/22/24 04:05 aspirin (ASA) AdvReac Mild dermatitis Verified 12/22/24 04:05 Home Medications ?Medication ?Instructions ?Recorded ?Confirmed ?Last Taken ?Type levetiracetam 1,000 mg tablet 3,000 mg PO DAILY 12/22/24 12/22/24 12/21/24 History levetiracetam 500 mg tablet 250 mg PO DAILY 12/22/24 12/22/24 12/21/24 History naproxen sodium 220 mg tablet 220 mg PO BID PRN Pain 12/22/24 12/22/24 12/21/24 History Exam Airway Mallampati Class: II TM Dist: <=3cm Neck ROM: Full Loose/Missing/Broken Teeth: No Heart: ok Lungs: ok Assessment and Plan Assessment Anesthesia Assessment: Anesthesia Plan Discussed and Chart Reviewed Final Anesthetic Review NPO: Yes ASA Class: III Final Preanesthetic Review: No Changes in Pt Med Stat, Meds/Allgs Chart Reviewed, Consent Obtained/Reviewed and Anes Risks/Benef Reviewed Patient Risk: Intermediate Procedure Risk: Low Anesthetic Plan Anesthetic Plan: GA and Agree w/ Assess. and Plan Disposition: Standard PACU
--- NOTE | 2024-12-22 13:57 | P.CNUR_ITS ---
History of Present Illness Consult details Consult date: 12/22/24 Narrative: CC: Left lower quadrant abdominal pain - left mid ureteric kidney stone 69-year-old female Past medical history is significant for recurrent nephrolithiasis Presents through emergency room with lower left quadrant pain associated with nausea and vomiting Ranks 9/10 with control from IV pain medications Similar to prior stones Creatinine 0.7, calcium 9.5 CT scan - round 7 mm calculus within the mid left ureter, with moderate left hydroureteronephrosis Recommend cystoscopy, left retrograde, left ureteroscopy with laser lithotripsy stent placement Review of Systems 2 Constitutional: Constitutional: Reports as per HPI and Reports no additional constitutional complaints Cardiovascular: Cardiovascular: Reports as per HPI and Reports no additional cardiovascular complaints Respiratory: Respiratory: Reports as per HPI and Reports no additional respiratory complaints Gastrointestinal: Gastrointestinal: Reports as per HPI and Reports no additional gastrointestinal complaints Genitourinary: Genitourinary: Reports as per HPI Musculoskeletal: Musculoskeletal: Reports no additional musculoskeletal complaints and Reports as per HPI Neurologic: Reports system reviewed and no additional complaints, except as documented and Reports as per HPI [facility] Past Medical History Medical History Cervical spondylarthritis Temporal lobe epilepsy Trigger finger of right thumb Trigger finger of left thumb Hypothyroidism Epilepsy Asthma Graves disease Family History Family History Father No problems noted. Mother No problems noted. Surgical History Surgical History Status post laparoscopic cholecystectomy S/P laparoscopic cholecystectomy (02/27/24) History of thumb surgery History of renal stent (~2002) History of arthroscopy of left knee History of tubal ligation Social History Social History Household Members: None Housing: Apartment Do you presently have visiting nurse or other home services: No Alcohol intake: current Alcohol intake frequency: holidays/special occasions only Patient Tobacco Use Status: Never used Tobacco Smoked in Last 30 Days: No e-Cigarette/Vaping Use: Never Used Second Hand Smoke Exposure: No Use of substances other than those prescribed or required for medical reasons: Yes Substance Use Type: Marijuana Substance Use Frequency: Daily Have you been hit, kicked, punched, or otherwise hurt by someone within the past year? 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 Cognitive needs: No Hearing needs: No Vision needs: No Meds Allergies Allergy/AdvReac Type Severity Reaction Status Date / Time tetracycline Allergy Intermediate vomiting Verified 12/22/24 04:05 penicillin V Allergy Unknown Unknown Verified 12/22/24 04:05 aspirin (ASA) AdvReac Mild dermatitis Verified 12/22/24 04:05 Active Medications: Current Medications Acetaminophen (Acetaminophen 325 Mg Tablet) 975 mg PO Q6H PRN PRN Reason: Pain, Mild 1-3,fever,headache Albuterol Sulfate (Albuterol Sulfate 90 Mcg 8 Gm Inhaler) 2 puff INHALE Q4H PRN PRN Reason: shortness of breath or wheezing Atorvastatin Calcium (Atorvastatin Calcium 40 Mg Tablet) 40 mg PO DAILY [facility] Calcium Carbonate (Calcium Carbonate 750 Mg Tab.Chew) 750 mg PO Q4H PRN PRN Reason: Heartburn Escitalopram Oxalate (Escitalopram Oxalate 20 Mg Tablet) 20 mg PO DAILY [facility] Last Admin: 12/22/24 10:16 Dose: 20 mg Fluticasone/Vilanterol (Fluticasone/Vilanterol 200/25 Blst.W.Dev) 1 puff INHALE RDAILY [facility] Hydromorphone HCl (Hydromorphone Hcl 1 Mg/Ml Syringe) 0.5 mg IVPUSH Q4H PRN; Protocol PRN Reason: Pain, Severe (Pain Scale 7-10) Hydroxyzine HCl (Hydroxyzine Hcl 25 Mg Tablet) 25 mg PO BID PRN PRN Reason: Anxiety Lactated Ringer's (Lr) 1,000 mls @ 100 mls/hr IVCONT .Q10H [facility] Last Admin: 12/22/24 10:16 Dose: 100 mls/hr Levetiracetam (Levetiracetam 1,000 Mg Tablet) 1,000 mg PO DAILY [facility] Levetiracetam (Levetiracetam 1,000 Mg Tablet) 2,000 mg PO BEDTIME [facility] Levetiracetam (Levetiracetam 250 Mg Tablet) 250 mg PO BEDTIME [facility] Levothyroxine Sodium 112 mcg/ (Levothyroxine Sodium 25 mcg) 137 mcg PO DAILY@0600 [facility] Last Admin: 12/22/24 08:45 Dose: 137 mcg Magnesium Hydroxide (Milk Of Magnesia 30 Ml Oral.Susp) 30 ml PO DAILY PRN PRN Reason: Constipation Melatonin (Melatonin 3 Mg Tablet) 6 mg PO BEDTIME PRN PRN Reason: Insomnia Montelukast Sodium (Montelukast Sodium 10 Mg Tablet) 10 mg PO DAILY [facility] Last Admin: 12/22/24 10:05 Dose: Not Given Ondansetron HCl (Ondansetron Hcl 4 Mg/2 Ml Vial) 4 mg IVPUSH Q8H PRN PRN Reason: Nausea and Vomiting Oxcarbazepine (Oxcarbazepine 300 Mg Tablet) 300 mg PO BID [facility] Last Admin: 12/22/24 08:45 Dose: 300 mg Sodium Chloride (0.9 % Sodium Chloride Flush 3 Ml Syringe) 3 ml IVFLUSH QSHIFT [facility] Last Admin: 12/22/24 10:25 Dose: 3 ml Home Medications ?Medication ?Instructions ?Recorded ?Confirmed ?Last Taken ?Type levetiracetam 1,000 mg tablet 3,000 mg PO DAILY 12/22/24 12/21/24 History levetiracetam 500 mg tablet 250 mg PO DAILY 12/22/24 1 02/22/24 12/21/24 History naproxen sodium 220 mg tablet 220 mg PO BID PRN Pain 1 02/22/24 12/22/24 12/21/24 History Physical Exam 2 Vital Signs: Vital Signs: Last Vital Signs Temp 97.8 F 12/22/24 09:43 Pulse 68 12/22/24 09:43 Resp 16 12/22/24 09:43 BP 129/60 12/22/24 09:43 Pulse Ox 95 12/22/24 09:43 O2 Del Method Room Air 12/22/24 09:43 BMI result Body Mass Index 25.9 Const: General: cooperative, healthy appearing, comfortable and no acute distress Orientation/consciousness: patient oriented x3 HEENT: Face and sinus: Yes normal facial exam Mouth: moist mucous membranes Neck: Neck: Yes normal visual inspection, Yes full ROM and Yes trachea midline Chest: Chest palpation & inspection: normal inspection of the chest Resp: Effort & Inspection: normal respiratory effort, able to speak in complete sentences and no respiratory distress GI: Inspection: Yes normal to inspection Back/Spine/Pelvis: Cervical Spine: normal cervical lordosis Thoracic/Lumbar Spine: thoracic and lumbar spine normal to inspection Skin: General skin exam: no rashes or lesions noted Neuro: General: patient oriented x3, tone normal and moves all extremities Extrem: General: Yes normal to inspection and Yes capillary refill normal Results Labs 12/22/24 04:26 12/22/24 04:26 Labs: Abnormal lab results 12/22/24 12/22/24 Range/Units 04:26 05:37 WBC 11.7 H (4.8-10.8) X10*3/uL MPV 8.9 L (9.4-12.3) fL Neut % (Auto) 83.0 H (45-73) % Lymph % (Auto) 10.5 L (20-40) % Abs Immat Gran (auto) 0.04 H (0.00-0.03) X10*3/uL Absolute Neuts (auto) 9.7 H (2.0-8.3) x10*3/uL Random Glucose 127 H (60-115) mg/dL Ur Specific [place] >= 1.030 H (1.005-1.025) Urine Blood Large (3+) H (Negative) Ur Leukocyte Esterase Small (1+) H (Negative) Urine RBC >20 H (0-2) /HPF Urine WBC 6-10 H (0-5) /HPF Short CBC 12/22/24 Range/Units 04:26 WBC 11.7 H (4.8-10.8) X10*3/uL Hgb 12.9 (12.0-16.0) g/dl Hct 39.1 (37.0-47.0) % Plt Count 301 D (160-400) X10*3/uL BMP 12/22/24 04:26 Sodium 139 Potassium 3.7 Chloride 103 Carbon Dioxide 25 BUN 16 Creatinine 0.74 Calcium 9.5 D Liver Function 12/22/24 Range/Units 04:26 Total Bilirubin 0.2 (0.0-1.0) mg/dL AST 22 (5-31) U/L ALT 14 (0-31) U/L Alkaline Phosphatase 117 (39-117) U/L Albumin 4.5 (3.5-5.0) g/dL Urine 12/22/24 Range/Units 05:37 Urine Color Yellow Urine Appearance Cloudy Urine pH 7.0 (5.0-9.0) Ur Specific [place] >= 1.030 H (1.005-1.025) Urine Protein Trace (Neg-Trace) mg/dL Urine Glucose (UA) Negative (Negative) mg/dL All other labs normal. Assessment and Plan (1) Ureteral stone: Status: Acute (2) Hydroureteronephrosis: Status: Acute Plan Ureteroscopy We discussed the nature of the decision and reasonable alternatives for performing ureteroscopy. Options such as medical therapy were discussed. Interventions include chemical dissolution, ESWL, ureteroscopy with laser lithotripsy and stent placement, PCNL. The relative uncertainties and benefits related to each alternate procedure were adequately discussed. General surgical risks including, but not limited to - pain, bleeding, infection, myocardial infarction, pulmonary embolus, deep vein thrombosis and cerebrovascular accident which may result in further hospitalization were discussed. Full disclosure of the procedure as well as all major risks, benefits and complications were discussed including but not limited to damage to the urethra, bladder and kidney infection, damage to the ureter, stent migration or malposition, scarring to the renal pelvis, remnant stone fragments, subsequent stone passage with need for secondary procedures. The overall secondary procedure rate is approximately 10-15%. The overall clearance rate is approximately 90-95%. Success of the procedure in the short-term does not necessarily guarantee that long-term success will be maintained. Suitable follow up will need to be maintained. The patient showed understanding of discussion and wishes to proceed with - cystoscopy, retrograde, ureteroscopy, possible lithotripsy/stone basketing and stent on the left side Procedures Date of Service Date of Service: 12/22/24
--- NOTE | 2024-12-22 16:09 | MHC.CM.PN ---
p[t will be dcd home self care
--- NOTE | 2024-12-22 16:37 | HO.PM.IMPN ---
Subjective Subjective Date of Service: 12/23/24 Interval History: left flank pain Review of Systems similar reuire iv pain meds Review of Systems: Yes all other systems are reviewed and are negative Physical Exam Exam: Exam: Appearance: Alert.? Oriented X3.? cvs: rrr, [id number] , no murmur res: clear to auscultation ,no rhonchii or wheezing abd: no rebound or guarding ,nt, bs present. -left flank pain ext pulses present , no cyanosis. neuro: axo3 , nonfocal. Vital Signs: Vital Signs: Last Vital Signs Temp 97.8 F 12/22/24 09:43 Pulse 68 12/22/24 09:43 Resp 16 12/22/24 09:43 BP 129/60 12/22/24 09:43 Pulse Ox 95 12/22/24 09:43 O2 Del Method Room Air 12/22/24 09:43 BMI result Body Mass Index 25.9 Objective Data Active Medications Acetaminophen (Acetaminophen 325 Mg Tablet) 975 mg PO Q6H PRN PRN Reason: Pain, Mild 1-3,fever,headache Albuterol Sulfate (Albuterol Sulfate 90 Mcg 8 Gm Inhaler) 2 puff INHALE Q4H PRN PRN Reason: shortness of breath or wheezing Atorvastatin Calcium (Atorvastatin Calcium 40 Mg Tablet) 40 mg PO DAILY PENDING SALE TO [facility] Calcium Carbonate (Calcium Carbonate 750 Mg Tab.Chew) 750 mg PO Q4H PRN PRN Reason: Heartburn Escitalopram Oxalate (Escitalopram Oxalate 20 Mg Tablet) 20 mg PO DAILY PENDING SALE TO [facility] Last Admin: 12/22/24 10:16 Dose: 20 mg Documented By: PANCHO Fluticasone/Vilanterol (Fluticasone/Vilanterol 200/25 Blst.W.Dev) 1 puff INHALE RDAILY PENDING SALE TO [facility] Hydromorphone HCl (Hydromorphone Hcl 1 Mg/Ml Syringe) 0.5 mg IVPUSH Q4H PRN; Protocol PRN Reason: Pain, Severe (Pain Scale 7-10) Hydroxyzine HCl (Hydroxyzine Hcl 25 Mg Tablet) 25 mg PO BID PRN PRN Reason: Anxiety Lactated Ringer's (Lr) 1,000 mls @ 100 mls/hr IVCONT .Q10H PENDING SALE TO [facility] Last Admin: 12/22/24 10:16 Dose: 100 mls/hr Documented By: PANCHO Levetiracetam (Levetiracetam 1,000 Mg Tablet) 1,000 mg PO DAILY PENDING SALE TO [facility] Levetiracetam (Levetiracetam 1,000 Mg Tablet) 2,000 mg PO BEDTIME PENDING SALE TO [facility] Levetiracetam (Levetiracetam 250 Mg Tablet) 250 mg PO BEDTIME PENDING SALE TO [facility] Levothyroxine Sodium 112 mcg/ (Levothyroxine Sodium 25 mcg) 137 mcg PO DAILY@0600 PENDING SALE TO [facility] Last Admin: 12/22/24 08:45 Dose: 137 mcg Documented By: JOSEP Magnesium Hydroxide (Milk Of Magnesia 30 Ml Oral.Susp) 30 ml PO DAILY PRN PRN Reason: Constipation Melatonin (Melatonin 3 Mg Tablet) 6 mg PO BEDTIME PRN PRN Reason: Insomnia Montelukast Sodium (Montelukast Sodium 10 Mg Tablet) 10 mg PO DAILY PENDING SALE TO [facility] Last Admin: 12/22/24 10:05 Dose: Not Given Documented By: PANCHO Non-Admin Reason: NPO Ondansetron HCl (Ondansetron Hcl 4 Mg/2 Ml Vial) 4 mg IVPUSH Q8H PRN PRN Reason: Nausea and Vomiting Oxcarbazepine (Oxcarbazepine 300 Mg Tablet) 300 mg PO BID PENDING SALE TO [facility] Last Admin: 12/22/24 08:45 Dose: 300 mg Documented By: JOSEP Sodium Chloride (0.9 % Sodium Chloride Flush 3 Ml Syringe) 3 ml IVFLUSH QSHIFT PENDING SALE TO [facility] Last Admin: 12/22/24 14:19 Dose: Not Given Documented By: PANCHO Non-Admin Reason: Previously Administered Labs 12/22/24 04:26 12/23/24 05:07 Labs: Laboratory Results - last 24 hr 12/22/24 12/22/24 04:26 05:37 MCV 91.8 MCH 30.3 MCHC 33.0 RDW 13.3 Plt Count 301 D MPV 8.9 L Immature Gran % (Auto) 0.3 Neut % (Auto) 83.0 H Lymph % (Auto) 10.5 L [place] % (Auto) 5.0 Eos % (Auto) 0.8 Baso % (Auto) 0.4 Lymph # (Auto) 1.2 [place] # (Auto) 0.6 Eos # (Auto) 0.1 Baso # (Auto) 0.1 Abs Immat Gran (auto) 0.04 H Absolute Neuts (auto) 9.7 H Absolute Nucleated RBC 0.000 Nucleated RBC % (auto) 0.0 Anion Gap 15 Estim Creat Clear Calc 63.1 Estimated GFR > 60 Random Glucose 127 H Calcium 9.5 D Total Bilirubin 0.2 AST 22 ALT 14 Alkaline Phosphatase 117 Total Protein 7.0 Albumin 4.5 Lipase 36 Urine Color Yellow Urine Appearance Cloudy Urine pH 7.0 Ur Specific [place] >= 1.030 H Urine Protein Trace Urine Glucose (UA) Negative Urine Ketones Negative Urine Blood Large (3+) H Urine Nitrite Negative Ur Leukocyte Esterase Small (1+) H Urine RBC >20 H Urine WBC 6-10 H Ur Squamous Epith Cells 11-20 Urine Bacteria Trace Hyaline Casts 0-2 Assessment and Plan (1) Ureteral stone: Status: Acute Plan 69-year-old female with a past medical history significant for nephrolithiasis, seizure disorder, Graves disease and anxiety, who presented to the ED due to left lower quadrant pain with nausea and vomiting. L ureteral stone with hydroureteronephrosis - leukocytosis likely reactive - urology consult - pain management - IVF - NPO pending possible procedure - monitor CBC and BMP seizure disorder - keppra and oxcarbazepine, last taken last night - med rec pending, 1x dose keppra placed per home med list (will need to be verified), oxcarbazepine BID Graves disease - levothyroxine anxiety - lexapro HLD - statin moderate persistent asthma, no acute exacerbation - continue home inhalers ongoingneed:please see h&P Quality Stroke Does the patient have a stroke diagnosis?: No VTE Prior VTE?: No VTE Risk Level:: Medical - moderate - high VTE Device Contraindication: N/A - Device Ordered VTE Drug Contraindication: Treatment Not Indicated
--- NOTE | 2024-12-22 18:33 | P.OP_ITS ---
Operative Note Operative Note Date of Service: 12/22/24 Narrative: PreOperative Diagnosis: Left mid ureteric stone with hydro uretero nephrosis Post Operative Diagnosis: Left mid ureteric stone with hydro uretero nephrosis Procedure: - cystoscopy, left retrograde - left dilatation of ureteric orifice under fluoroscopy - left ureteroscopy, laser lithotripsy, stone basketing - left stent placement Surgeon: Dr Delvin Orr Anesthesia: General Indications for procedure: Admission through emergency department with left-sided flank pain. CT scan 7 mm left mid ureteric stone with hydro uretero nephrosis. Procedure: After informed consent was verified the patient was brought to the operating room and placed in a supine position. Anesthesia was administered per protocol. The patient was placed in a modified dorsal lithotomy position and prepped and draped in a sterile fashion. Safety pause time-out and side of surgery were confirmed. Images were available for review. Antibiotic administration confirmed. A 22 Swedish cystoscope was inserted per urethra. The urethra was without abnormality. The bladder was normal in its entirety. Both ureteric orifices were seen in normal position. The left ureteric orifice was cannulated and a retrograde examination was performed. Filling defects seen junction between mid and distal ureter. Proximal hydro uretero nephrosis . A Sensor guidewire was placed up to the level of the renal pelvis under fluoroscopy. The rigid cystoscope was removed. A Red Bud dilator was placed over the Sensor guidewire and used to dilate the ureteric orifice under fluoroscopy. The dilator was removed. The semi rigid ureteral scope was placed alongside the Sensor guidewire. The stone was encountered at the junction between the mid and distal ureter.. Using a 365 micro holmium laser fiber the stone was broken into small pieces using a combination of hammer and dusting techiques. Stone fragments were removed from the ureter using a ZeroTip 2.4 Swedish basket. Once the fragments were removed a decision was made to place a ureteric stent. Based on the height of the patient a 6 Fr x 22 cm stent was used. A 6 Swedish by 22 cm double-J stent was placed into the renal pelvis and bladder under a combination of fluoroscopy and direct visualization. The symphisis pubis was used as a radiographic marker to release the stent and good coil was seen within the bladder confirming position Proximal positioning of the stent was confirmed using fluoroscopy. The bladder was emptied. The patient tolerated the procedure well and was extubated in the operating room. They were transferred in stable condition to the recovery area. Pathology: stones Drains: Double J stent as described above
[2024-12-23] MEDS: Lactated Ringers 1,000 ML 100 ML IVCONT (01:32)
[2024-12-23 03:17] VITALS: BP 123/58; PULSE 59; RESP 18; TEMP 36.3; O2SAT 92
[2024-12-23] MEDS: Levothyroxine Sodium 112 MCG, Levothyroxine Sodium 25 MCG 137 MCG PO (05:30)
[2024-12-23 06:05] LABS: Alanine Aminotransferase 11 U/L (0-31); Albumin Level 3.4 g/dL (3.5-5.0); Alkaline Phosphatase 94 U/L (39-117); Anion Gap 10 (12-20); Aspartate Amino Transferase 22 U/L (5-31); Blood Urea Nitrogen 9 mg/dL (9-16); Calcium 8.5 mg/dL (8.4-10.2); Carbon Dioxide 28 mmol/L (22-29); Chloride 107 mmol/L (96-108); Creatinine Clr Calc Pharmacy 79.0; Estimated Glomerular Filt Rate > 60; Potassium 3.8 mmol/L (3.3-5.1); Sodium 141 mmol/L (135-145); Total Protein 5.2 g/dL (6.5-8.0)
[2024-12-23 07:32] VITALS: BP 117/61; PULSE 67; RESP 16; TEMP 36.7; O2SAT 92
[2024-12-23] MEDS: Fluticasone/Vilanterol 200/25 BLST.W.DEV 1 PUFF INHALE (07:46)
[2024-12-23 07:47] VITALS: PULSE 67; RESP 18; O2SAT 92
--- NOTE | 2024-12-23 08:49 | HO.POSTANES ---
Post Anesthesia Evaluation Post Anesthesia Evaluation Date of Service: 12/23/24 Vital Signs: Vital Signs Temp Pulse Resp BP Pulse Ox O2 Del Method 12/23/24 07:47 67 18 12/23/24 07:32 98.0 F 67 16 117/61 92 Room Air 12/23/24 03:17 97.3 F 59 18 123/58 L 92 Room Air 12/22/24 23:30 97.3 F 78 18 127/83 94 Room Air Anesthesia: General Mental Status: Awake Pain Control: Satisfactory Nausea/Vomiting: None Hydration: Adequate Anesthesia-Related Issues: No Anes. Related Issues
--- NOTE | 2024-12-23 10:34 | MHC.CM.PN ---
IMM 12/22/24 Patient is discharged to home self care. She has arranged for transportation home.
--- NOTE | 2024-12-23 10:35 | PM.DS ---
DS: Providers Provider Date of Service: 12/23/24 Date of admission: 12/22/24 06:33 Date of discharge: 12/23/24 Primary care physician: Rere Ferreira PA-C Consults: 12/22/24 06:33 Consult to Urology Stat Consulting Provider: [facility] [place] [facility] Reason for consultation: Left obstructive renal calculus Has provider been notified: Yes Attending physician on discharge: Alicja Murray Discharging clinician: Alicja Murray DS: Diagnosis Discharge Diagnosis (1) Ureteral stone: Status: Acute (2) Hydroureteronephrosis: Status: Acute DS: Summary Hospital Course Hospital Course: HPI:69-year-old female with a past medical history significant for nephrolithiasis, seizure disorder, Graves disease and anxiety, who presented to the ED due to left lower quadrant pain with nausea and vomiting. The patient reported the pain was about a 9/10, currently better controlled. No urinary symptoms including frequency, urgency or dysuria. She reports this feels similar to previous kidney stones. She has no additional complaints including chest pain, shortness of breath, URI sx. Hospital course:69-year-old female with a past medical history significant for nephrolithiasis, seizure disorder, Graves disease and anxiety, who presented to the ED due to left lower quadrant pain with nausea and vomiting: Found to have positive UA, mild leukocytosis-imaging study found to have left UPJ stone: Started on IV hydration, pain medication as well as seen by Urology and stent was placed:Seems to be improving significantly, follow up with PCP and Urology outpatient, monitor BMP outpatient. Encouraged for p.o. hydration and intake. Urine culture-mixed roro. Patient received Levaquin yesterday, currently asymptomatic, discussed with the Urology we will give 5 days of antibiotics, discharge.pencicllin allergy(unknown). plan: Encouraged for p.o. hydration intake complete levaquin 250 mg po qd. We will discuss with Urology if need antibiotics Monitor BMP outpatient Follow up with the Urology and PCP outpatient Time Attestation Total time managing care of this patient today: 45 mintues. Discharge Coordination Time (in mins): 45min Quality: Safe Use of Opioids Does Pt have an Active Cancer Diagnosis on the Problem List?: No Quality: Stroke Does the patient have a stroke diagnosis?: No Physical Exam Exam: Exam: General: AOx3, no acute distress Resp: CTA bilaterally CVS: S1, S2, RRR GI: +BS, +LLQ pain, no distention Skin: Warm, dry Neuro: Cranial nerves II-XII grossly intact bilaterally. Motor grossly intact bilaterally Extremities: No pitting edema Psych: Appropriate affect Vital Signs: Vital Signs: Last Vital Signs Temp 98.0 F 12/23/24 07:32 Pulse 67 12/23/24 07:47 Resp 18 12/23/24 07:47 BP 117/61 12/23/24 07:32 Pulse Ox 92 12/23/24 07:32 O2 Del Method Room Air 12/23/24 07:32 BMI result Body Mass Index 25.9 DS: Data Data Completed and Pending Pending studies at discharge: Pending at discharge 12/22/24 18:20 Surgical [PTH] Stat Labs on day of discharge: Laboratory Results - last 24 hr 12/23/24 05:07 Hold Purple Top SEE NOTE Sodium 141 Potassium 3.8 Chloride 107 Carbon Dioxide 28 Anion Gap 10 L BUN 9 Creatinine 0.60 Estim Creat Clear Calc 79.0 Estimated GFR > 60 Random Glucose 96 Calcium 8.5 D Total Bilirubin 0.3 AST 22 ALT 11 Alkaline Phosphatase 94 Total Protein 5.2 L Albumin 3.4 L Imaging Chest x-ray: My impression: ct abd: There is a 7 mm calculus within the mid left ureter with moderate left hydroureteronephrosis. Additional incidental findings. Discharge Plan Discharge Anticipated Discharge Date/Time: 12/22/24 13:19 Patient Disposition: Home, Self-Care Discharge Diagnosis: Left renal stone. Referrals: Delvin Orr MD [Physician, Urology] - 1 Week Rere Ferreira PA-C [Primary Care Provider, Internal Medicine] - 1 Week Discharge Medications: New levofloxacin 250 mg Tablet 250 mg PO Q24H Qty: 5 0RF acetaminophen 325 mg Tablet 975 mg PO Q6H PRN (Reason: Pain, Mild 1-3,Fever,Headache) Qty: 14 0RF Continued albuterol sulfate [Ventolin HFA] 90 mcg/actuation HFA aerosol inhaler 2 puff inhalation Q4H PRN (Reason: shortness of breath or wheezing) Qty: 18 6RF budesonide-formoterol [Symbicort] 160-4.5 mcg/actuation HFA aerosol inhaler 2 puff PO BID Qty: 10.2 6RF montelukast 10 mg tablet 10 mg PO DAILY Qty: 30 6RF oxcarbazepine 300 mg tablet 300 mg PO BID 90 Days Qty: 180 1RF levothyroxine 137 mcg tablet 137 mcg PO DAILY Qty: 30 3RF atorvastatin 40 mg tablet 40 mg PO DAILY Qty: 90 0RF levetiracetam 1,000 mg tablet 3,000 mg PO DAILY Rx Instructions: TOTAL 3250MG DAILY levetiracetam 500 mg tablet 250 mg PO DAILY Rx Instructions: TOTAL DOSE 3250MG DAILY naproxen sodium 220 mg Tablet 220 mg PO BID PRN (Reason: Pain) escitalopram oxalate 20 mg tablet 20 mg PO DAILY Qty: 30 0RF hydroxyzine HCl 25 mg tablet 25 mg PO BID PRN (Reason: anxiety) Qty: 30 0RF Discharge Orders: Discharge Order (Routine); Ordered 12/23/24 Ordered By: Alicja Murray Diet: Advance to usual diet Activity on Discharge: As tolerated Stand Alone Forms: Patient Portal Discharge page Print Language: Surinamese Care Plan Goals: Patient came to the hospital with left flank pain: Found to have positive UA, mild leukocytosis-imaging study found to have left UPJ stone: Started on IV hydration, pain medication as well as seen by Urology and stent was placed:Seems to be improving significantly, follow up with PCP and Urology outpatient, monitor BMP outpatient. Encouraged for p.o. hydration and intake. Health Concerns: Encouraged for p.o. hydration intake complete levaquin 250 mg po qd. We will discuss with Urology if need antibiotics Monitor BMP outpatient Follow up with the Urology and PCP outpatient Plan of Treatment: As above. Assessment: As above. Discharge Date/Time: 12/23/24 12:36
[2024-12-23 12:00] VITALS: BP 142/70; PULSE 65; RESP 16; TEMP 36.8; O2SAT 94
== END 2024-12-23 12:36 | disposition home or self-care (01) | DRG 661 ==
LOC: HO.ED 04:37 → HO.EDOVER 06:39 → HO.S3 08:24
PROVIDERS: Urology; Admitting Provider Internal Medicine; Emergency Provider Emergency Medicine; Visit Provider Internal Medicine
PROC: 0T778DZ Dilation of Left Ureter with Intraluminal Device, Via Natural or Artificial Opening Endoscopic (ICD-10-PCS; principal; 2024-12-22 16:10)
DX: N13.2 Hydronephrosis with renal and ureteral calculous obstruction (principal); G40.909 Epilepsy, unspecified, not intractable, without status epilepticus; E05.00 Thyrotoxicosis with diffuse goiter without thyrotoxic crisis or storm; F41.9 Anxiety disorder, unspecified; E78.5 Hyperlipidemia, unspecified; J45.40 Moderate persistent asthma, uncomplicated; Z79.890 Hormone replacement therapy; Z79.899 Other long term (current) drug therapy
CPT/HCPCS: 36415; 74177; 80053; 81001; 81003; 82365; 83690; 85025; 87086; 88300; 94640; 94664; 99285; C1758; C1769; C2617; J1171; J1885; J1956; J2003; J2405; J2704; J3010; J7120; Q9967

== ENCOUNTER → 2024-12-22 03:51 | Outpatient (BNV) | payer MEDICARE, MEDICAID, SELFPAY | PROVIDERS: Admitting Provider Internal Medicine; Emergency Provider Emergency Medicine; Visit Provider Radiology Vascular & Interventional Radiology | DX: N13.2 Hydronephrosis with renal and ureteral calculous obstruction (principal) | CPT/HCPCS: 74177 ==

== ENCOUNTER → 2024-12-22 06:33 | Outpatient (BNV) | payer MEDICARE, MEDICAID, SELFPAY | PROVIDERS: Admitting Provider Internal Medicine; Emergency Provider Emergency Medicine; Visit Provider Urology | DX: N20.1 Calculus of ureter (principal); N13.30 Unspecified hydronephrosis | CPT/HCPCS: 52356; 74420; 99222 ==

== ENCOUNTER → 2024-12-22 06:33 | Outpatient (BNV) | payer MEDICARE, MEDICAID, SELFPAY | PROVIDERS: Admitting Provider Internal Medicine; Emergency Provider Emergency Medicine; Visit Provider Internal Medicine | DX: N13.2 Hydronephrosis with renal and ureteral calculous obstruction (principal) | CPT/HCPCS: 99222; 99239 ==

== ENCOUNTER 2024-12-30 12:35 | Outpatient (AMB) | payer MEDICARE, MEDICAID, SELFPAY ==
--- NOTE | 2024-12-30 12:58 | MHC.OFFVIS ---
Intake Visit Reasons: cysto/stent removal Intake Note: Patient is present for cystoscopy with stent removal Urology Rx: none Blood Thinners:none Imaging completed: none Classification Inspector Required: No Accompanied by: Self / Same As Patient Allergies tetracycline Allergy (Intermediate, Verified 12/30/24 12:59) vomiting penicillin V Allergy (Unknown, Verified 12/30/24 12:59) Unknown aspirin (ASA) Adverse Reaction (Mild, Verified 12/30/24 12:59) dermatitis HPI Comments Details: Seda is a pleasant female. She is a patient of . She is seen for the following urologic conditions - nephrolithiasis Here for cystoscopy stent removal Recent admission to hospital with left-sided nephrolithiasis Underwent ureteroscopy Stone analysis pending Nephrolithiasis Recent evaluation in hospital through emergency room with left-sided stones Baseline creatinine 0.7, calcium 8.[address] scan - round 7 mm calculus within the mid left ureter, with moderate left hydroureteronephrosis, 3 mm stones left renal pelvis Intervention - 12/30 left ureteroscopy Follow-up six-month with renal ultrasound [facility] Medical History Cervical spondylarthritis Temporal lobe epilepsy Trigger finger of right thumb Trigger finger of left thumb Hypothyroidism Epilepsy Asthma Graves disease Surgical History Status post laparoscopic cholecystectomy S/P laparoscopic cholecystectomy (02/27/24) History of thumb surgery History of renal stent (~2002) History of arthroscopy of left knee History of tubal ligation Family History Father No problems noted. Mother No problems noted. 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 Cognitive needs: No Hearing needs: No Vision needs: No Review of Systems Const Denies chills and Denies fever(s) Card Reports no additional complaints and Denies syncope Resp Denies cough GI Denies abdominal pain and Denies heartburn Reports as per HPI and Denies change in libido Neuro Denies syncope Psych Denies change in libido Endo Denies change in libido Physical Exam Const General: cooperative, healthy appearing, comfortable and no acute distress Orientation/consciousness: patient oriented x3 HEENT Face and sinus: Yes normal facial exam Mouth: moist mucous membranes Neck Neck: Yes normal visual inspection, Yes full ROM and Yes trachea midline Chest Chest palpation & inspection: normal inspection of the chest Resp Effort & Inspection: normal respiratory effort, able to speak in complete sentences and no respiratory distress GI Inspection: Yes normal to inspection Back/Spine/Pelvis Cervical Spine: normal cervical lordosis Thoracic/Lumbar Spine: thoracic and lumbar spine normal to inspection Skin General skin exam: no rashes or lesions noted Neuro General: patient oriented x3, gait normal, tone normal and moves all extremities Extrem General: Yes normal to inspection and Yes capillary refill normal Office Procedures Cystoscopy Consent Discussed risk and benefit or proposed procedure with the patient. Information consent for procedure given to the patient. Discussed technical aspects, risks, benefits and alternatives in full. Addressed all of the patient's questions and concerns regarding the procedure. The patient demonstrated knowledge and understanding. They wish to proceed with this procedure. Preparation The patient was prepped in the usual manner. A food and beverage assistant manager was present and in the room. Genitalia was prepped with betadine solution in a sterile manner. Lidocaine Jelly 2% was placed into the urethra and 16Fr flexible Olympus cystoscope was inserted into the meatus after adequate lubrication. Procedure A well lubricated 16 Mauritian cystoscope was placed No abnormality noted of urethra during placement Indwelling stent seen within bladder emerging from left ureteric orifices The stent was grasped with a 3 prong grasper and removed without difficulty The patient tolerated the procedure well [id number] with stent removal DISPOSABLE SCOPE URO-G FLEXIBLE SCOPE Procedure code (CPT) selection complete Office Meds lidocaine HCl 2 % mucosal jelly in applicator Performing Provider: Delvin Orr MD Performing Location: [facility] Administered by: Ting Stratton RN on 12/30/24 13:18 Dose Route Admin Location Dispensed Lot Number Expiration Date [facility] [employer] 10 mL intra-urethral 10 mL nitrofurantoin monohydrate/macrocrystals 100 mg capsule Performing Provider: Delvin Orr MD Performing Location: [facility] Administered by: Ting Stratton RN on 12/30/24 13:18 Dose Route Admin Location Dispensed Lot Number Expiration Date [employer] 100 mg PO 1 cap Results AMB Urinalysis, Automated UA Leukoctes 70 Susana/uL Last Edit by Gabby Colon, [facility] on 12/30/24 13:09 UA Nitrite Negative Last Edit by Gabby Colon, [facility] on 12/30/24 13:09 UA Urobilinogen 0.2 mg/dL Last Edit by Gabby Colon, [facility] on 12/30/24 13:09 UA Protein 100 mg/dL Last Edit by Gabby Colon, [facility] on 12/30/24 13:09 UA pH 5.5 Last Edit by Gabby Colon, [facility] on 12/30/24 13:09 UA Blood 200 Wiley/uL Last Edit by Gabby Colon, [facility] on 12/30/24 13:09 UA Specific Comstock 1.030 Last Edit by Gabby Colon, [facility] on 12/30/24 13:09 UA Ketone Negative Last Edit by Gabby Colon, [facility] on 12/30/24 13:09 UA Bilirubin 0 mg/dL Last Edit by Gabby Colon, [facility] on 12/30/24 13:09 UA Glucose 0 mg/dL Last Edit by Gabby Colon, [facility] on 12/30/24 13:09 Results Reviewed Results Reviewed: Laboratory Last Values Urine pH (Auto) 5.5 12/30/24 13:08 Specific Comstock (Auto) 1.030 12/30/24 13:08 Urine Protein (Auto) 100 mg/dL 12/30/24 13:08 Glucose (UA)(Auto) 0 mg/dL 12/30/24 13:08 Urine Ketones (Auto) Negative 12/30/24 13:08 Urine Blood (Auto) 200 Wiley/uL 12/30/24 13:08 Urine Nitrite (Auto) Negative 12/30/24 13:08 Urine Bilirubin (Auto) 0 mg/dL 12/30/24 13:08 Urine Urobilinogen (Auto) 0.2 mg/dL 12/30/24 13:08 Leukocyte Esterase (Auto) 70 Susana/uL 12/30/24 13:08 Assessment & Plan Assessment & Plan (1) Ureteral stone: Code(s): N20.1 - Calculus of ureter Category: Medical (2) Hydroureteronephrosis: Code(s): N13.30 - Unspecified hydronephrosis Category: Medical Plan Six-month follow-up renal ultrasound Orders: Orders AMB Cystoscopy Today N13.30 - Unspecified hydronephrosis, N20.0 - Calculus of kidney, N20.1 - Calculus of ureter US renal BI 6 Months N20.0 - Calculus of kidney Patient Instructions: This note is constructed using voice recognition software. While every effort has been made to ensure accuracy curing room supervisor errors may have been included. Imaging studies, laboratory and physical exam results were discussed and reviewed in detail. No major barriers to patient understanding were identified. An opportunity to ask questions regarding the treatment plan was provided. All questions were answered. The patient expressed understanding and agreement with the above treatment plan. The patient is aware they should contact our office by phone for worsening of their current condition or the appearance of new urologic symptoms. Compliance is encouraged with any medications and followup testing that is ordered. It is a privilege to participate in the urologic care of your patient. If you have any questions or concerns regarding treatment for the above conditions, or other urologic issues, please do not hesitate to contact me. The office telephone contact is [phone]. Sincerely, Dr Delvin Orr MD, [facility] - Urology Compassionate Specialist Care for the Genitourinary System Coding Level of Care Code Complex visit Add On G2211 Diagnoses Ureteral stone N20.1 Hydroureteronephrosis N13.30 CPT Codes Cystoscopy - CPT: 36411-[id number] with stent removal ([id number])
== END 2024-12-30 13:33 | disposition home or self-care (01) ==
LOC: HO.HUSH 12:35
PROVIDERS: Visit Provider Urology
DX: N20.0 Calculus of kidney (principal); N13.30 Unspecified hydronephrosis; N20.1 Calculus of ureter
CPT/HCPCS: 52310

== ENCOUNTER → 2024-12-30 12:35 | Outpatient (BNVA) | payer MEDICARE, MEDICAID, SELFPAY | PROVIDERS: Visit Provider Urology | DX: Z46.6 Encounter for fitting and adjustment of urinary device (principal); N20.1 Calculus of ureter; N13.30 Unspecified hydronephrosis | CPT/HCPCS: 52310 ==

== ENCOUNTER 2025-01-19 10:03 | Outpatient (AMB) | payer MEDICARE, MEDICAID, SELFPAY ==
[2025-01-19 10:24] VITALS: BP 128/66; PULSE 62; RESP 18; O2SAT 98; BMI 24.7
--- NOTE | 2025-01-19 10:24 | A.OFFPC_ITS ---
Vital Signs 01/19/25 10:24 Height 5 ft 2 in Weight 135 lb 2 oz BMI 24.7 BP 128/66 Blood Pressure Location Lt brachial Position Sitting Respiration 18 Pulse 62 Pulse Source Pulse Oximeter Temp Source Temporal Artery Scan Pulse Oximetry (%) 98 Oxygen Delivery Method Room Air Intake Visit Reasons: 3 month f/u Surface Supply Breathing Apparatus Required: No Accompanied by: Self / Same As Patient Allergies tetracycline Allergy (Intermediate, Verified 01/19/25 10:44) vomiting penicillin V Allergy (Unknown, Verified 01/19/25 10:44) Unknown aspirin (ASA) Adverse Reaction (Mild, Verified 01/19/25 10:44) dermatitis Medication List - Last Reconciled 01/19/25 by Rere Ferreira PA-C acetaminophen 975 mg (3 x 325 mg) PO Q6H PRN atorvastatin 40 mg PO DAILY escitalopram oxalate 20 mg PO DAILY hydroxyzine HCl 25 mg PO BID PRN levetiracetam 250 mg PO DAILY levetiracetam 3,000 mg PO DAILY levofloxacin 250 mg PO Q24H levothyroxine 137 mcg PO DAILY montelukast 10 mg PO DAILY naproxen sodium 220 mg PO BID PRN oxcarbazepine 300 mg PO BID 90 days Symbicort 160-4.5 mcg/actuation (budesonide-formoterol) 2 puffs PO BID NS Ventolin HFA 90 mcg/actuation (albuterol sulfate) 2 puffs inhalation Q4H PRN NS Tobacco use date assessed: 01/19/25 Fall risk assessment: No Falls in past year Last assessed Fall Risk: 01/19/25 Dental Screening Dental Screen Date: 01/19/25 Did you have a dental visit in the last 12 months?: Yes Did you have a dental problem in the last 6 months where you did not have access to dental care?: No Was dental information given to patient?: Patient has dentist HPI 3 month f/u HPI Details 69-year-old female with past medical his tory of asthma, hypothyroidism last seen 12/2024 coming in for follow up. In review of the notes, patient was seen by Urology 12/2024 US ordered for 6 months. She was started on Lexapro at her last visit and Hydroxyzine as needed for anxiety and sleep. Presenting for follow-up on anxiety and chronic conditions. She reports a recent episode of severe panic that progressed to paranoia, which she described as terrorizing and uncontrollable, and linked it to the traumas of the past year. The patient worries her panic attacks may be related to her Graves' disease, but she reports only mental symptoms without the physical symptoms like heart racing, palpitations, or sweating she experienced at the beginning of her Graves' diagnosis. Lexapro has been helping with her anxiety, and she does not feel she needs a stronger dose. She was prescribed hydroxyzine, which helped her sleep during the severe anxiety, but she stopped taking it due to fear of dependency. Past medical history is significant for a hospitalization on December 22 for a large kidney stone, which required the placement of a surgical stent. A CT scan at that time revealed two or three additional small stones. She had a follow-up recently and is scheduled for another ultrasound in six months. She denies any current pain or urinary symptoms related to the kidney stones. [facility] Medical History Cervical spondylarthritis Temporal lobe epilepsy Trigger finger of right thumb Trigger finger of left thumb Hypothyroidism Epilepsy Asthma Graves disease Surgical History Status post laparoscopic cholecystectomy S/P laparoscopic cholecystectomy (02/27/24) History of thumb surgery History of renal stent (~2002) History of arthroscopy of left knee History of tubal ligation Family History Father No problems noted. Mother No problems noted. 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 Cognitive needs: No Hearing needs: No Vision needs: No Questionnaire Thrive Questionnaire Date Thrive assessed: 01/19/25 I am a: Patient What is your living situation today?: I have a steady place to live Within the past 12 months, did the food you bought not last and you didn't have the money to get more?: Never true Within the past 12 months, did you worry whether your food would run out before you got money to buy more?: Sometimes True Do you have trouble paying for medicines?: I choose not to answer this question Do you have trouble getting transportation to medical appointments?: No Do you have trouble paying your heating and electricity bill?: Yes Do you have trouble taking care of your child, family member or friend?: No Do you have trouble with day-to-day activities such as bathing, preparing meals, shopping, managing finances, etc.?: No Are you currently unemployed and looking for a job?: No Are you interested in more education?: No Please select the resources that you would like help with: None Currently or been in a relationship where the following occur: No concerns reported THRIVE Score: 2 KRYSTINA-7 AMB Questionnaire KRYSTINA-7 Date KRYSTINA - 7 assessed: 10/16/24 Source: Developed by Drs. Vivek West, Keeley Cantor, Nithin Amaya and colleagues, with an educational ketty from [employer]. Review of Systems Const Denies body aches, Denies chills, Denies fever(s), Denies headache(s) and Denies poor appetite Eyes Reports no additional complaints ENT Denies dizziness and Denies headache(s) Card Denies chest pain, Denies edema, Denies lightheadedness and Denies dyspnea Resp Denies cough and Denies dyspnea GI Denies abdominal pain, Denies nausea and Denies vomiting Reports no additional complaints Musc Reports no additional complaints and Denies abnormal gait Skin/Breast Reports system reviewed and no additional complaints, except as documented Neuro Denies abnormal gait, Denies dizziness and Denies headache(s) Psych Reports no additional complaints Physical exam (Primary Care) Vital Signs: Last Vital Signs Pulse 62 01/19/25 10:24 Resp 18 01/19/25 10:24 BP 128/66 01/19/25 10:24 Pulse Ox 98 01/19/25 10:24 Oxygen Delivery Method Room Air 01/19/25 10:24 BMI result Body Mass Index 24.7 Tobacco/Smoking Status: Tobacco use Status Tobacco use date assessed 01/19/25 01/19/25 10:30 Patient Tobacco Use Status Never used Tobacco 01/19/25 10:30 e-Cigarette/Vaping Use Never Used 01/19/25 10:30 Thrive Assessment: Date of Thrive Assessment Date Thrive assessed 01/19/25 01/19/25 10:30 Currently or been in a relationship where the following occur: No concerns reported Const General: cooperative, healthy appearing, comfortable and no acute distress Orientation/consciousness: patient oriented x3 HENMT Head: Yes normocephalic Ears: hearing grossly normal bilaterally General nose exam: Normal external nose present Eyes General: appearance normal, both eyes and all related structures Conjunctivae: conjunctivae normal Neck Neck: Yes full ROM and Yes no lymphadenopathy Resp Effort & Inspection: normal respiratory effort Auscultation: clear to auscultation bilaterally, no crackles, no rales, no rhonchi and no wheezes Cardio Rate: regular rate Rhythm: regular rhythm Skin General skin exam: no rashes or lesions noted Neuro General: patient oriented x3 Gait exam (Neuro): Normal gait present Extrem General: Yes normal to inspection, Yes full ROM and No edema Psych Affect: normal affect Attitude: cooperative Insight: Good insight present (Psych) Judgement: Good judgement present (Psych) Coding Level of Care Code Est Pt Level 3 (48604) Diagnoses Severe anxiety F41.9 Hypercholesterolemia E78.00 Hypothyroidism E03.9 Ureteral stone N20.1 Assessment & Plan Assessment & Plan (1) Severe anxiety: Code(s): F41.9 - Anxiety disorder, unspecified Category: Medical Plan: The patient reports that her anxiety, which recently presented as severe panic and paranoia, is improving with Lexapro. She will continue the current dose of Lexapro as it is effective. She has initiated trauma therapy with [facility] to address the psychological distress accumulated over the past year. Hydroxyzine may be used as needed for sleep, and she was reassured that it is a safe, non-addictive medication. (2) Hypercholesterolemia: Code(s): E78.00 - Pure hypercholesterolemia, unspecified Category: Medical Plan: Avoid foods that are high in cholesterol such as red meat, fried foods, eggs and baked goods. Triglyceride goal of less than 150 and LDL goal of less than 130. Ordered for repeat blood work (3) Hypothyroidism: Code(s): E03.9 - Hypothyroidism, unspecified Category: Medical Plan: Ordered for repeat blood work. (4) Ureteral stone: Code(s): N20.1 - Calculus of ureter Category: Medical Plan: The patient was hospitalized on December 22 for a large kidney stone that required a stent. She is currently asymptomatic and will follow up with Dr. Gannon in six months, with a repeat ultrasound scheduled at that time. Plan This note was constructed using voice recognition software. While every effort has been made to ensure accuracy and clinic charge nurse, still areas may have been included sometimes these areas may affect the content or meeting of the given symptoms. Total time spent caring for the patient today was 20 minutes. This includes time spent before the visit reviewing the chart, time spent during the visit, and time spent after the visit and documentation. Patient was informed and verbally consented to the use of an ambient scribe for clinic note documentation during this visit. Orders: Orders TSH reflex Free T4 Today E03.9 - Hypothyroidism, unspecified Lipid Panel Today E78.00 - Pure hypercholesterolemia, unspecified
== END 2025-01-19 11:09 | disposition home or self-care (01) ==
LOC: HO.HMCH 10:04
DX: F41.9 Anxiety disorder, unspecified (principal); E78.00 Pure hypercholesterolemia, unspecified; E03.9 Hypothyroidism, unspecified; N20.1 Calculus of ureter

== ENCOUNTER → 2025-01-19 10:03 | Outpatient (BNVA) | payer MEDICARE, MEDICAID, SELFPAY | DX: N20.1 Calculus of ureter (principal); E78.00 Pure hypercholesterolemia, unspecified; F41.9 Anxiety disorder, unspecified; E03.9 Hypothyroidism, unspecified; Z79.899 Other long term (current) drug therapy | CPT/HCPCS: 99212 ==